=== PATIENT | female | born 1940 | race Caucasian/White ===

== ENCOUNTER → 2016-12-21 | Outpatient (REF) | payer MEDICARE, OTHER ==
[2016-12-21 16:23] LABS: MEAN CORPUSCULAR HEMOGLOBIN 30.9 pg (27.0-33.0); MEAN CORPUSCULAR HGB CONC 33.4 g/dl (32.0-36.5); MEAN CORPUSCULAR VOLUME 92.6 fl (80.0-96.0); RED CELL DISTRIBUTION WIDTH 13.4 % (11.5-14.5); WHITE BLOOD COUNT 6.1 K/mm3 (4.0-10.0)
[2016-12-21 16:32] LABS: ALBUMIN 3.6 GM/DL (3.2-5.2); ALBUMIN/GLOBULIN RATIO 0.97 (1.00-1.93); ALKALINE PHOSPHATASE 63 U/L (45-117); ALT/SGPT 14 U/L (12-78); ANION GAP 7 MEQ/L (8-16); AST/SGOT 16 U/L (15-37); BILIRUBIN,TOTAL 0.5 MG/DL (0.2-1.0); BLOOD UREA NITROGEN 13 MG/DL (7-18); CALCIUM LEVEL 8.4 MG/DL (8.8-10.2); CARBON DIOXIDE LEVEL 30 MEQ/L (21-32); CHLORIDE LEVEL 104 MEQ/L (98-107); CHOLESTEROL LEVEL 207 MG/DL (<200); CREATININE FOR GFR 0.77 MG/DL (0.55-1.02); FREE T4 1.32 NG/DL (0.76-1.46); GLOMERULAR FILTRATION RATE > 60.0 (>39); GLUCOSE, FASTING 89 MG/DL (83-110); POTASSIUM SERUM 3.8 MEQ/L (3.5-5.1); SODIUM LEVEL 141 MEQ/L (136-145); TOTAL PROTEIN 7.3 GM/DL (6.4-8.2); TRIGLYCERIDES LEVEL 283 MG/DL (<150)
== END ==
LOC: M SFHCSACK 09:27
PROVIDERS: ATTEND Family Medicine
DX: H53.9 Unspecified visual disturbance (principal); I11.9 Hypertensive heart disease without heart failure; E03.9 Hypothyroidism, unspecified; E78.2 Mixed hyperlipidemia

== ENCOUNTER 2017-02-28 07:05 | Inpatient (IN) | payer MEDICARE, OTHER ==
[~2017-02-28] VITALS: Ht 160 cm; Wt 113.0 kg
[2017-02-28] MEDS ORDERED: LEVO112T2 PO (07:22)
[2017-02-28] MEDS ORDERED: HYDR25TAB PO (07:22)
[2017-02-28] MEDS ORDERED: COZA100T2 PO (07:22)
[2017-02-28] MEDS ORDERED: REQU2TAB3 PO (07:28)
[2017-02-28] MEDS ORDERED: OSTETAB PO (07:28)
[2017-02-28] MEDS ORDERED: VITA1TAB9 PO (07:28)
[2017-02-28] MEDS ORDERED: VITA500T3 PO (07:28)
[2017-02-28] MEDS ORDERED: SINE25TA5 PO (07:28)
[2017-02-28] MEDS ORDERED: CRAN400T3 PO (07:29)
[2017-02-28] MEDS ORDERED: PRIL20CA9 PO (07:30)
[2017-02-28] MEDS ORDERED: FISH5CAP PO (07:30)
[2017-02-28] MEDS: METOPROLOL 5 MG/5 ML VIAL IV SCH ×3 (08:00→08:52)
[2017-02-28 08:08] LABS: BASO % 0.6 % (0.0-1.0); EOS # 0.2 K/mm3 (0.0-0.50); EOS % 3.2 % (0.0-3.0); LARGE UNSTAINED CELL # 0.1 K/mm3 (0.0-0.4); LARGE UNSTAINED CELL % 1.5 % (0.0-4.0); LYMPH # 1.9 K/mm3 (1.5-4.5); LYMPH % 30.4 % (24.0-44.0); MEAN CORPUSCULAR HEMOGLOBIN 30.6 pg (27.0-33.0); MEAN CORPUSCULAR HGB CONC 33.6 g/dl (32.0-36.5); MONO # 0.3 K/mm3 (0.0-0.8); MONO % 5.3 % (0.0-5.0); NEUTROPHILS # 3.4 K/mm3 (1.8-7.7); PLATELET COUNT, AUTOMATED 301 k/mm3 (150-450); RED CELL DISTRIBUTION WIDTH 13.2 % (11.5-14.5); WHITE BLOOD COUNT 5.8 K/mm3 (4.0-10.0)
--- NOTE | 2017-02-28 08:17 | REP ---
Chest one-view HISTORY: Chest pain Comparison: 10/27/2005 The lungs are clear. The heart is normal in size. The pulmonary vasculature is normal in appearance. Impression: No acute disease. Signed by Bala Dickinson MD 02/28/2017 08:08 A
[2017-02-28 08:21] LABS: INR 0.96
[2017-02-28] MEDS ORDERED: METOPROLOL TART 25 MG TABLET PO ONE (08:45)
[2017-02-28] MEDS ORDERED: LOSARTAN 50 MG TAB PO SCH (09:00)
[2017-02-28 09:09] LABS: MAGNESIUM LEVEL 2.1 MG/DL (1.8-2.4); PHOSPHORUS LEVEL 3.1 MG/DL (2.5-4.9)
[2017-02-28] MEDS ORDERED: CRAN500C2 PO (09:11)
[2017-02-28] MEDS ORDERED: VITA100066 PO (09:11)
[2017-02-28] MEDS ORDERED: SYST1SOL OU (09:11)
[2017-02-28] MEDS ORDERED: B-1210009 PO (09:11)
[2017-02-28] MEDS ORDERED: ROPI2TAB24 PO (09:11)
[2017-02-28] MEDS ORDERED: CARB1TAB PO (09:11)
[2017-02-28] MEDS ORDERED: OMEP40CA2 PO (09:11)
[2017-02-28] MEDS ORDERED: GABA-282 PO (09:11)
[2017-02-28 09:27] LABS: ANION GAP 8 MEQ/L (8-16); BLOOD UREA NITROGEN 14 MG/DL (7-18); CALCIUM LEVEL 9.1 MG/DL (8.8-10.2); CARBON DIOXIDE LEVEL 27 MEQ/L (21-32); CHLORIDE LEVEL 106 MEQ/L (98-107); GLOMERULAR FILTRATION RATE > 60.0 (>39); GLUCOSE, FASTING 115 MG/DL (83-110); POTASSIUM SERUM 3.8 MEQ/L (3.5-5.1); SODIUM LEVEL 141 MEQ/L (136-145)
[2017-02-28] MEDS ORDERED: AMIODARONE HCL 150 MG in APPROPRIATE DILUENT 1 EA IV STA ×2 (09:33→10:18)
[2017-02-28 09:56] LABS: FREE T4 1.17 NG/DL (0.76-1.46)
[2017-02-28] MEDS ORDERED: SINEMET**CR** 25/100 TABCR PO SCH ×2 (12:00→13:46)
[2017-02-28 13:52] VITALS: BP 129/82
[2017-02-28] MEDS: LEVOTHYROXINE 100MCG TABLET (0.1MG) PO SCH (13:52)
[2017-02-28] MEDS: CitaloPRAM (CeleXA) 10 MG TABLET PO SCH (15:23)
[2017-02-28] MEDS: GABAPENTIN 300 MG CAP PO SCH ×2 (15:23→20:32)
[2017-02-28] MEDS: SINEMET**CR** 25/100 TABCR PO SCH ×2 (15:23→18:09)
[2017-02-28] MEDS: OMEPRAZOLE 20 MG CAP PO SCH (15:24)
[2017-02-28 16:00] VITALS: BP 131/79
--- NOTE | 2017-02-28 16:41 | HPE ---
DATE OF ADMISSION: 02/28/2017 PRIMARY CARE PROVIDER: Dr. Jas Jeffery ATTENDING TODAY: Dr. Ann Marie Solorzano HISTORY: This is a 76-year-old female patient of Dr. Jeffery'lina, who presented to [facility] emergency room after she woke this morning feeling as though her heart was racing, shortness of breath, weakness, and vision changes. The vision change lasted less than 5 minutes. She states that now that she is here in the emergency room and she is feeling a bit better after having some IV medication to slow her heart rate, she states that she has felt an irregular and rapid heart rate for at least 7 days. She denies any history of this having occurred in the past or any recollection of similar symptoms in the past. The patient denies any recent alcohol intake, any significant caffeine intake. She drinks decaffeinated coffee. PAST MEDICAL HISTORY: Positive for: 1. Hypothyroidism. 2. Hyperlipidemia. 3. Intolerance to multiple statins. 4. Impaired fasting glucose with metabolic syndrome. 5. Hypertension. 6. Vitamin D deficiency. 7. History of peptic ulcer disease in 1979. 8. Bilateral hip bursitis. 9. Gastroesophageal reflux disease (GERD). 10. Parkinson's. 11. Degenerative disc disease of L4-L5. 12. Peripheral neuropathy of bilateral lower extremities. 13. Morbid obesity with BMI of 44 SURGICAL HISTORY: Includes: 1. Hysterectomy. 2. Appendectomy. 3. Two breast biopsies. 4. Resection of melanoma, basal cell on the lip by Dr. Mortensen. FAMILY HISTORY: Noncontributory. SOCIAL HISTORY: She is a former smoker. She does not drink alcohol. She lives at home with her daughter and her who also has Parkinson's. She denies any recreational drug use. She drinks decaffeinated coffee and has limited caffeine intake. ALLERGIES: ASPIRIN, which caused an ulcer in the past. NIASPAN causes severe flushing. PRASANNA INHIBITORS causes throat irritation, LOPID caused myalgias, ZOCOR caused myalgias, LISINOPRIL caused a cough, ATORVASTATIN caused myalgias, PRAVASTATIN caused myalgias. REVIEW OF SYSTEMS: The patient denies any lightheadedness, dizziness, headaches, significant changes to her hearing. She did note vision change that was brief this morning and present immediately upon awakening with a central right spot in her vision that was present both with her eyes opened and closed. She denies any difficulty swallowing, nausea, vomiting, diarrhea, melena or hematochezia. She has had no chest pain, although, as above, she has felt as though her heart is racing. She has had increased shortness of breath over the last week, which feels better now that her heart rate has slowed down. She denies any cough or hemoptysis. She has had no swelling in her legs. She feels as steady on her feet as she normally does with her history of Parkinson's disease. VITAL SIGNS: Reveal a temperature of 98.1, her pulse at 10:35 was 110, respirations are 20, blood pressure is 124/82, pulse oximetry is 94%. GENERAL: This is an elderly appearing, very pleasant female who is [facility] She appears comfortable. She is alert and oriented. HEENT: Head is normocephalic, atraumatic. Pupils are equal, round and reactive to light and accommodation. Extraocular movements are intact. Oropharynx is pink and moist. NECK: Supple without lymphadenopathy or jugular venous distention (JVD). CARDIOVASCULAR: On auscultation, her rate was about 122 beats per minute. It is irregular. She did not have an audible murmur. LUNGS: Clear to auscultation bilaterally. ABDOMEN: Obese, soft and nontender. She has positive bowel sounds. EXTREMITIES: With normal range of motion of bilateral upper and lower extremities. She has no cyanosis, clubbing. She has no edema. NEUROLOGIC: She is alert and oriented times three. INVESTIGATIONS: WBC 5.8, hemoglobin 14.1, hematocrit 42.1, platelets are 301, INR is 0.96. Sodium is 141, potassium 3.8, chloride 106, carbon dioxide 27, BUN 14, creatinine 0.8, glucose 116, calcium 9.1, phosphorous 3.1, magnesium 2.1, total CK is 83, CK-MB is 2, troponin is less than 0.02, TSH is 0.88, Free T4 is 1.17. Chest x-ray is without any acute disease. EKG showed rapid ventricular response, atrial fibrillation. ASSESSMENT AND PLAN: 1. New onset atrial fibrillation with rapid ventricular response. She has received multiple doses of IV Lopressor in the emergency room with only minimal improvement in her rate control. She subsequently received a 25 mg oral dose of Lopressor. Dr. Cornell, the emergency room physician, contacted Dr. Jane, cardiology, who recommended in consult on IV amiodarone administration for this patient to help with rate control. She will be admitted to the progressive care unit (PCU), consult cardiology for further management of her rate control. We will start her on Xarelto for anticoagulation of this new onset atrial fibrillation. 2. Hypothyroidism. Her TSH is 0.888, which is on the low side of normal, although for her age it is slightly too low. Given the new onset atrial fibrillation, we will decrease her Synthroid from 112 mcg daily to 100 mcg daily. She will need a repeat TSH and Free T4 in the office in approximately six weeks. 3. History of Parkinson's disease. She is on Sinemet as an outpatient. We will continue this during her hospitalization. 4. Neuropathy. We will continue her gabapentin. 5. Hypertension. She takes Losartan and hydrochlorothiazide as an outpatient. I am going to hold her hydrochlorothiazide at this point. We will continue the losartan 100 mg daily and monitor pressures. 6. Gastroesophageal reflux disease (GERD). We will continue her on omeprazole 40 mg daily. 7. Deep vein thrombosis (DVT) prophylaxis. She has been started on Xarelto. She also has orders for sequential compression device (SCD) and thromboembolic compression stockings (TEDS). 8. Morbid Obesity - BMI 44.1 DISPOSITION: The patient is admitted to the progressive care unit (PCU). I anticipate she will be in the hospital at least two overnights and therefore she is admitted as an inpatient. She wishes to be FULL CODE. She does have a daughter, Darlin, whom she identifies as her healthcare proxy and who has agreed to bring in documentation supporting such. GENEVIEVED
[2017-02-28] MEDS ORDERED: RIVAROXABAN 20 MG TAB (XARELTO) PO SCH (18:00)
--- NOTE | 2017-02-28 18:26 | ECGEPIP ---
Stationary ECG Study [facility] - ED Test Date: 2017-02-28 Pat Name: VIRGINIE BENSON Department: Room: - Gender: F Parts Cleaner: matteo : 1940 Requested By: KAHLIL Vail Order Number: [id number] Reading MD: Nataliya Amaya Measurements Intervals [place] Rate: 150 P: [place]: 0 QRS: -12 QRSD: 85 T: -13 QT: 268 QTc: 424 Interpretive Statements ATRIAL FIBRILLATION WITH RAPID VENTRICULAR RESPONSE MODERATE ST DEPRESSION NO PRIOR FOR COMPARISON Electronically Signed On 02-28-2017 18:26:32 EDT by Nataliya Amaya
[2017-02-28 20:00] VITALS: BP 127/60
[2017-02-28] MEDS ORDERED: METOPROLOL TART 25 MG TABLET PO SCH (21:00)
[2017-03-01] VITALS: BP 103/52
[2017-03-01 04:15] VITALS: BP 102/52
[2017-03-01 05:19] LABS: MEAN CORPUSCULAR HGB CONC 33.8 g/dl (32.0-36.5); MEAN CORPUSCULAR VOLUME 91.6 fl (80.0-96.0); RED CELL DISTRIBUTION WIDTH 13.4 % (11.5-14.5); WHITE BLOOD COUNT 5.3 K/mm3 (4.0-10.0)
[2017-03-01] MEDS: LEVOTHYROXINE 100MCG TABLET (0.1MG) PO SCH (05:25)
[2017-03-01 05:33] LABS: ALBUMIN 2.8 GM/DL (3.2-5.2); ALBUMIN/GLOBULIN RATIO 0.76 (1.00-1.93); ALKALINE PHOSPHATASE 52 U/L (45-117); ALT/SGPT 8 U/L (12-78); ANION GAP 6 MEQ/L (8-16); AST/SGOT 14 U/L (15-37); BILIRUBIN,TOTAL 0.4 MG/DL (0.2-1.0); BLOOD UREA NITROGEN 17 MG/DL (7-18); CALCIUM LEVEL 8.5 MG/DL (8.8-10.2); CARBON DIOXIDE LEVEL 27 MEQ/L (21-32); CHLORIDE LEVEL 106 MEQ/L (98-107); CREATININE FOR GFR 0.83 MG/DL (0.55-1.02); GLOMERULAR FILTRATION RATE > 60.0 (>39); GLUCOSE, FASTING 102 MG/DL (83-110); MAGNESIUM LEVEL 2.2 MG/DL (1.8-2.4); POTASSIUM SERUM 3.6 MEQ/L (3.5-5.1); SODIUM LEVEL 139 MEQ/L (136-145); TOTAL PROTEIN 6.5 GM/DL (6.4-8.2)
[2017-03-01] MEDS ORDERED: POTASSIUM CHLORIDE 10 MEQ SR TABLET PO ONE (07:45)
[2017-03-01] MEDS ORDERED: CARD120C3 PO (07:51)
[2017-03-01] MEDS ORDERED: CELE10TA PO (07:51)
[2017-03-01] MEDS ORDERED: LEVO100T5 PO (07:51)
[2017-03-01] MEDS ORDERED: XARE20TA PO (07:51)
[2017-03-01 08:00] VITALS: BP 129/79
[2017-03-01 08:18] VITALS: BP 129/79
[2017-03-01] MEDS: CitaloPRAM (CeleXA) 10 MG TABLET PO SCH (08:19)
[2017-03-01] MEDS: SINEMET**CR** 25/100 TABCR PO SCH ×3 (08:20→14:22)
[2017-03-01] MEDS: GABAPENTIN 300 MG CAP PO SCH (08:20)
[2017-03-01] MEDS: OMEPRAZOLE 20 MG CAP PO SCH (08:20)
[2017-03-01] MEDS ORDERED: hydroCHLOROthiazide 25 MG TAB PO SCH (09:00)
[2017-03-01 12:14] VITALS: BP 130/58
--- NOTE | 2017-03-02 10:58 | DSES ---
DATE OF ADMISSION: 02/28/2017 DATE OF DISCHARGE: 03/01/2017 BRIEF HISTORY AND PHYSICAL: The patient is a 76-year-old patient of Dr. Jeffery who presented with feeling as though her heart was racing. She was short of breath and weak with some vision changes that lasted about 5 minutes. PAST MEDICAL HISTORY: Is significant for hypothyroidism, hyperlipidemia, intolerance to multiple statins, impaired fasting glucose, metabolic syndrome, hypertension, vitamin D deficiency, peptic ulcer disease, bilateral hip bursitis, gastroesophageal reflux disease, Parkinson disease, degenerative disc disease, peripheral neuropathy of bilateral lower extremities, morbid obesity. PERTINENT LABORATORIES ON ADMISSION: White count 5.8, hemoglobin 14, platelets 301,000. INR 0.96. Sodium 141, potassium 3.8, BUN 14, creatinine 0.8, glucose 116, CIPs and troponins were negative. TSH 0.8. A chest x-ray without acute disease. Electrocardiogram (EKG) showed rapid atrial fibrillation. HOSPITAL COURSE: The patient was admitted for new-onset atrial fibrillation with rapid ventricular response. She was given multiple doses of Lopressor in the emergency room with minimal improvement in her heart rate control. She subsequently was given oral Lopressor and Dr. Cornell, the emergency room physician, contacted Dr. Jane, who recommended intravenous (IV) amiodarone. However, Dr. Jane declined seeing the patient apparently officially in consultation. She was given IV amiodarone times two and has been switched from Lopressor to Cardizem. Heart rate is well controlled. Blood pressure was a little bit soft, and so her losartan was discontinued, and she has been placed on a Xarelto. The Xarelto is being sent to the pharmacy to see if this is covered, and assuming her blood pressure and heart rate remain controlled with the Cardizem today, she will be discharged home later today and will followup with Dr. Jeffery in the office. Held off on any referrals to cardiology. Will wait to see whether she requires this as an outpatient and defer to Dr. Jeffery which audiovisual production specialist he would like to refer her to. Hypothyroidism. Her thyroid-stimulating hormone (TSH) was a little bit on the low end. Her Synthroid was decreased from 112 to 100 mcg daily. She will need a repeat TSH to be performed in 6 weeks. Borderline hypokalemia. Her potassium was 3.6 on the date of discharge. Her angiotensin receptor tamie (ARB) has been held due to borderline hypotension. This could be restarted as an outpatient if her blood pressure tolerates, but in the meantime, will need to watch her potassium. She was given a single dose of potassium prior to discharge, and she will need her electrolytes checked in the office. History Parkinson disease. She remains stable on her Sinemet. Gastroesophageal reflux disease. She is on a proton pump inhibitor (PPI). DISPOSITION: She is stable for discharge home, assuming that her Xarelto is covered by insurance and her blood pressure and heart rate remained stable with the Cardizem dose today. Medications: Citalopram 10 mg daily, diltiazem 240 mg daily, levothyroxine 100 mcg daily (his is a decreased from 112 mcg), Xarelto 20 mg daily, carbidopa/levodopa one tablet four times a day, vitamin D 1000 international units daily, cranberry 500 mg daily, fish oil one tablet twice a day, gabapentin 300 mg twice a day, hydrochlorothiazide 25 mg daily, omeprazole 40 mg daily, Osteo Bi-Flex daily, MiraLAX daily, Requip 2 mg at bedtime. Losartan is on hold. DISCHARGE DIAGNOSES: 1. New-onset atrial fibrillation with rapid ventricular response. 2. Hypothyroidism. 3. Parkinson disease. 4. Borderline hypokalemia. 5. Gastroesophageal reflux disease with a history of peptic ulcer disease in the past.
--- NOTE | 2017-03-03 22:29 | ECHO ---
DATE OF PROCEDURE: 03/03/2017 REFERRING PROVIDER: Dr. Deloris Chicas PATIENT LOCATION: Room 3123 REASON FOR THE ECHOCARDIOGRAM: Abnormal EKG. 2D MEASUREMENTS: IVS: 1.1 cm LV: 4.3 cm LVPW: 1.1 cm LA: 3.3 cm Aorta: 2.7 cm IVC: 2.38 cm DOPPLER MEASUREMENTS: Peak velocity across the aortic valve: 1.5 m/s Peak velocity across the LVOT: 1.1 m/s Mitral E: 0.62 Mitral A: 0.82 with a ratio of 0.8 Maximum tricuspid valve velocity: 2.4 m/s 2D COMMENTS: 1. Normal left ventricular size, wall thickness, and normal global left ventricular systolic function. The estimated left ventricular systolic ejection fraction is 60% to 65%. 2. Normal left atrium. The right atrium appeared to mildly enlarged in limited views. The right ventricle also appeared to be mildly enlarged but the right ventricular free wall was moving well. 3. The atrial septum appeared to be normal without evidence of defect or shunt. 4. Normal aortic root. 5. No pericardial effusion seen. 6. Mildly calcified aortic valve with normal leaflet excursion. Mildly calcified mitral annulus with normal anterior mitral valve leaflet motion. Normal tricuspid valve. The pulmonic valve and proximal pulmonary artery branches were not well visualized. 7. The inferior vena cava was mildly enlarged at 2.3 cm, central venous pressure may be mildly elevated. DOPPLER: It detects trace mitral regurgitation and mild tricuspid regurgitation. The calculated pulmonary artery systolic pressure varies between 30 to 40 mmHg. Abnormal relaxation pattern was noted across the mitral valve leaflets as well as the mitral valve annulus consistent with grade 1 left ventricular diastolic dysfunction. IMPRESSION: 1. Normal global left ventricular systolic function. There are some features of left ventricular diastolic dysfunction, grade 1. 2. Aortic valve sclerosis without stenosis or aortic regurgitation. 3. Mitral annulus calcification with trace mitral regurgitation. 4. Mild tricuspid regurgitation with mild pulmonary hypertension. The right heart chambers appear to be mildly enlarged in limited views but no intracardiac shunt detected. 5. The inferior vena cava was mildly enlarged, central venous pressure mildly elevated. MTDD
== END 2017-03-01 14:25 | disposition home or self-care (01) | DRG 309 ==
LOC: EDBD 07:05 → M ED 07:05 → M ED INP 11:00 → M PCU 13:17
PROVIDERS: ADMIT Family Medicine; ATTEND Family Medicine
DX: I48.91 Unspecified atrial fibrillation (principal); Z68.41 Body mass index [BMI] 40.0-44.9, adult; E03.9 Hypothyroidism, unspecified; E78.5 Hyperlipidemia, unspecified; E88.81 Metabolic syndrome and other insulin resistance; I10 Essential (primary) hypertension; E55.9 Vitamin D deficiency, unspecified; K21.9 Gastro-esophageal reflux disease without esophagitis; G20 Parkinson's disease; E66.01 Morbid (severe) obesity due to excess calories; M70.72 Other bursitis of hip, left hip; E87.6 Hypokalemia; M70.71 Other bursitis of hip, right hip; M51.36 Other intervertebral disc degeneration, lumbar region; G57.93 Unspecified mononeuropathy of bilateral lower limbs; Z85.828 Personal history of other malignant neoplasm of skin; Z90.710 Acquired absence of both cervix and uterus; Z87.891 Personal history of nicotine dependence; Z88.6 Allergy status to analgesic agent; Z88.8 Allergy status to other drugs, medicaments and biological substances

== ENCOUNTER 2017-03-15 20:15 | Emergency (ER) | payer MEDICARE, OTHER ==
[~2017-03-15] VITALS: Ht 160 cm; Wt 117.9 kg
[~2017-03-15 20:15] MED LIST: B-1210009 PO; CARB1TAB PO; CARD120C3 PO; CELE10TA PO; COZA100T2 PO; CRAN400T3 PO; CRAN500C2 PO; FISH5CAP PO; GABA-282 PO; HYDR25TAB PO; LEVO100T5 PO; LEVO112T2 PO; OMEP40CA2 PO; OSTETAB PO; PRIL20CA9 PO; REQU2TAB3 PO; ROPI2TAB24 PO; SINE25TA5 PO; SYST1SOL OU; VITA100066 PO; VITA1TAB9 PO; VITA500T3 PO; XARE20TA PO
[2017-03-15 21:25] LABS: INR 1.41
[2017-03-15 21:27] LABS: BASO # 0.1 K/mm3 (0.0-0.2); EOS # 0.2 K/mm3 (0.0-0.50); EOS % 2.5 % (0.0-3.0); LARGE UNSTAINED CELL # 0.1 K/mm3 (0.0-0.4); LARGE UNSTAINED CELL % 1.3 % (0.0-4.0); LYMPH # 2.2 K/mm3 (1.5-4.5); LYMPH % 26.1 % (24.0-44.0); MEAN CORPUSCULAR HEMOGLOBIN 31.7 pg (27.0-33.0); MEAN CORPUSCULAR HGB CONC 35.4 g/dl (32.0-36.5); MEAN CORPUSCULAR VOLUME 89.5 fl (80.0-96.0); MONO # 0.4 K/mm3 (0.0-0.8); MONO % 4.2 % (0.0-5.0); NEUTROPHILS # 5.5 K/mm3 (1.8-7.7); NEUTROPHILS % 64.9 % (36.0-66.0); PLATELET COUNT, AUTOMATED 345 k/mm3 (150-450); WHITE BLOOD COUNT 8.5 K/mm3 (4.0-10.0)
[2017-03-15 21:41] LABS: ABG BASE EXCESS 0.9 (-2.0-2.0); ABG HCO3 25.6 MEQ/L (22.0-26.0); ABG PARTIAL PRESSURE CO2 41.2 mmHg (35.0-45.0); ABG PARTIAL PRESSURE O2 83.1 mmHg (75.0-100.0); ABG STANDARD HCO3 25.3 MEQ/L (22.0-26.0); ABG TOTAL CO2 26.9 MEQ/L (23.0-31.0); ABG pH (ARTERIAL) 7.412 UNITS (7.350-7.450)
[2017-03-15 21:43] LABS: BLOOD UREA NITROGEN 13 MG/DL (7-18); CALCIUM LEVEL 8.8 MG/DL (8.8-10.2); CARBON DIOXIDE LEVEL 28 MEQ/L (21-32); CHLORIDE LEVEL 99 MEQ/L (98-107); CREATININE FOR GFR 0.89 MG/DL (0.55-1.02); GLUCOSE, FASTING 138 MG/DL (83-110); POTASSIUM SERUM 3.4 MEQ/L (3.5-5.1); SODIUM LEVEL 135 MEQ/L (136-145)
[2017-03-15 21:47] LABS: ANION GAP 8 MEQ/L (8-16)
[2017-03-15] MEDS ORDERED: ISOVUE-370 76% 100ML VIAL (Q9967) As Ordered ONE (22:18)
--- NOTE | 2017-03-15 22:50 | REPUSA ---
CT angiogram of the chest Clinical statement: dyspnea. Technique: Multiple axial CT images were obtained from the thoracic inlet through the upper abdomen a fter a bolus administration of nonionic intravenous contrast. Coronal and sagittal reconstructions we re also obtained. No comparison is available. Findings: The pulmonary arteries are well-opacified with contrast, with no intraluminal filling defec ts to suggest embolism. The thoracic aorta is unremarkable. Thyroid gland is within normal limits. Th ere is no thoracic lymphadenopathy. There are no pericardial or pleural effusions. The lungs are jerzy r. Limited imaging of the upper abdomen is unremarkable. There are no suspicious osseous lesions. Impression: Unremarkable CT examination of the chest. No evidence of pulmonary embolism.
[2017-03-16 02:23] VITALS: BP 145/69
--- NOTE | 2017-03-16 11:24 | ECGEPIP ---
Stationary ECG Study [facility] - ED Test Date: 2017-03-15 Pat Name: VIRGINIE BENSON Department: Room: - Gender: F Invoice Clerk: : 1940 Requested By: JOHNNY KENT Order Number: [id number] Reading MD: Nataliya Amaya Measurements Intervals [place] Rate: 59 P: 34 [place]: 180 QRS: 69 QRSD: 97 T: 44 QT: 446 QTc: 444 Interpretive Statements SINUS BRADYCARDIA PRIOR ATRIAL FIBRILLATION 02/28/17 Electronically Signed On 03-16-2017 11:23:45 EDT by Nataliya Amaya
--- NOTE | 2017-03-16 11:26 | ECGEPIP ---
Stationary ECG Study [facility] - ED Test Date: 2017-03-16 Pat Name: VIRGINIE BENSON Department: Room: - Gender: F Public Service Representative: : 1940 Requested By: JOHNNY KENT Order Number: [id number] Reading MD: Nataliya Amaya Measurements Intervals [place] Rate: 57 P: 25 [place]: 167 QRS: -8 QRSD: 94 T: 12 QT: 436 QTc: 426 Interpretive Statements SINUS BRADYCARDIA NSTTW ABNORMALITY Electronically Signed On 03-16-2017 11:25:48 EDT by Nataliya Amaya
== END 2017-03-16 02:25 | disposition home or self-care (01) ==
LOC: EDBD 20:15 → M ED 20:15
DX: R07.89 Other chest pain (principal); F41.9 Anxiety disorder, unspecified; I10 Essential (primary) hypertension; E03.9 Hypothyroidism, unspecified; K21.9 Gastro-esophageal reflux disease without esophagitis; G20 Parkinson's disease; I48.91 Unspecified atrial fibrillation; Z88.6 Allergy status to analgesic agent; Z88.8 Allergy status to other drugs, medicaments and biological substances; Z79.899 Other long term (current) drug therapy
CPT/HCPCS: 36415; 36600; 71275; 80048; 82550; 82553; 82803; 84484; 85025; 85610; 85730; 93005; 99284; Q9967

== ENCOUNTER → 2017-04-19 | Outpatient (REF) | payer MEDICARE, OTHER ==
[2017-04-19 16:11] LABS: ANION GAP 8 MEQ/L (8-16); BLOOD UREA NITROGEN 13 MG/DL (7-18); CARBON DIOXIDE LEVEL 31 MEQ/L (21-32); CHLORIDE LEVEL 104 MEQ/L (98-107); CREATININE FOR GFR 0.77 MG/DL (0.55-1.02); FREE T4 1.28 NG/DL (0.76-1.46); GLOMERULAR FILTRATION RATE > 60.0 (>39); GLUCOSE, FASTING 92 MG/DL (83-110); POTASSIUM SERUM 3.8 MEQ/L (3.5-5.1); SODIUM LEVEL 143 MEQ/L (136-145)
== END ==
LOC: M SFHCSACK 09:18
PROVIDERS: ATTEND Family Medicine
DX: E03.9 Hypothyroidism, unspecified (principal); R60.0 Localized edema; I48.0 Paroxysmal atrial fibrillation

== ENCOUNTER → 2017-08-22 | Outpatient (CLI) | payer MEDICARE, OTHER | LOC: M WHC 10:20 | DX: Z12.31 Encounter for screening mammogram for malignant neoplasm of breast (principal); Z80.0 Family history of malignant neoplasm of digestive organs; Z92.0 Personal history of contraception | CPT/HCPCS: 77067 ==

== ENCOUNTER → 2017-10-16 | Outpatient (REF) | payer MEDICARE, OTHER ==
[2017-10-16 14:11] LABS: HEMATOCRIT 40.7 % (36.0-47.0); HEMOGLOBIN 13.5 g/dl (12.0-16.0); MEAN CORPUSCULAR HEMOGLOBIN 29.9 pg (27.0-33.0); MEAN CORPUSCULAR HGB CONC 33.2 g/dl (32.0-36.5); RED BLOOD COUNT 4.52 10^6/uL (4.00-5.40); RED CELL DISTRIBUTION WIDTH 13.1 % (11.5-14.5); WHITE BLOOD COUNT 6.3 10^3/uL (4.0-10.0)
[2017-10-16 14:12] LABS: PLATELET COUNT, AUTOMATED 280 10^3/uL (150-450)
[2017-10-16 14:31] LABS: ESTIMATED AVERAGE GLUCOSE 117 MG/DL (60-110); HEMOGLOBIN A1c 5.7 %
[2017-10-16 14:35] LABS: ALBUMIN 3.6 GM/DL (3.2-5.2); ALBUMIN/GLOBULIN RATIO 0.95 (1.00-1.93); ALKALINE PHOSPHATASE 77 U/L (45-117); ALT/SGPT 9 U/L (12-78); ANION GAP 7 MEQ/L (8-16); AST/SGOT 13 U/L (7-37); BILIRUBIN,TOTAL 0.4 MG/DL (0.2-1.0); BLOOD UREA NITROGEN 14 MG/DL (7-18); CALCIUM LEVEL 8.9 MG/DL (8.8-10.2); CARBON DIOXIDE LEVEL 31 MEQ/L (21-32); CHLORIDE LEVEL 103 MEQ/L (98-107); CHOLESTEROL LEVEL 209 MG/DL (<200); CREATININE FOR GFR 0.77 MG/DL (0.55-1.30); FREE T4 1.18 NG/DL (0.76-1.46); GLOMERULAR FILTRATION RATE > 60.0 (>39); GLUCOSE, FASTING 95 MG/DL (70-100); HDL CHOLESTEROL 38 MG/DL (>40); LDL CHOLESTEROL 118.4 MG/DL (<100); NON-HDL-C 171 MG/DL; SODIUM LEVEL 141 MEQ/L (136-145); TOTAL PROTEIN 7.4 GM/DL (6.4-8.2); TRIGLYCERIDES LEVEL 263 MG/DL (<150)
== END ==
LOC: M SFHCSACK 09:34
DX: G60.9 Hereditary and idiopathic neuropathy, unspecified (principal); E03.9 Hypothyroidism, unspecified; R73.9 Hyperglycemia, unspecified; E78.2 Mixed hyperlipidemia
CPT/HCPCS: 84443

== ENCOUNTER → 2018-03-13 | Outpatient (REF) | payer MEDICARE, OTHER | LOC: M SFHCADAM 13:39 | DX: N39.0 Urinary tract infection, site not specified (principal) | CPT/HCPCS: 87186 ==

== ENCOUNTER → 2018-05-10 | Outpatient (REF) | payer MEDICARE, OTHER ==
[2018-05-10 13:10] LABS: HEMATOCRIT 41.5 % (36.0-47.0); MEAN CORPUSCULAR HEMOGLOBIN 30.6 pg (27.0-33.0); MEAN CORPUSCULAR HGB CONC 33.7 g/dl (32.0-36.5); MEAN CORPUSCULAR VOLUME 90.8 fl (80.0-96.0); PLATELET COUNT, AUTOMATED 323 10^3/uL (150-450); RED BLOOD COUNT 4.57 10^6/uL (4.00-5.40); RED CELL DISTRIBUTION WIDTH 13.2 % (11.5-14.5); WHITE BLOOD COUNT 7.4 10^3/uL (4.0-10.0)
[2018-05-10 15:17] LABS: ALBUMIN 3.6 GM/DL (3.2-5.2); ALKALINE PHOSPHATASE 70 U/L (45-117); ALT/SGPT 19 U/L (12-78); ANION GAP 11 MEQ/L (8-16); AST/SGOT 10 U/L (7-37); BILIRUBIN,TOTAL 0.4 MG/DL (0.2-1.0); BLOOD UREA NITROGEN 14 MG/DL (7-18); CALCIUM LEVEL 9.3 MG/DL (8.8-10.2); CARBON DIOXIDE LEVEL 28 MEQ/L (21-32); CHLORIDE LEVEL 101 MEQ/L (98-107); CHOLESTEROL LEVEL 207 MG/DL (<200); CHOLESTEROL RISK RATIO 4.312 (<5); CREATININE FOR GFR 0.79 MG/DL (0.55-1.30); GLOMERULAR FILTRATION RATE > 60.0 (>39); GLUCOSE, FASTING 95 MG/DL (70-100); HDL CHOLESTEROL 48 MG/DL (>40); LDL CHOLESTEROL 126 MG/DL (<100); NON-HDL-C 159 MG/DL; POTASSIUM SERUM 3.7 MEQ/L (3.5-5.1); SODIUM LEVEL 140 MEQ/L (136-145); TOTAL 25(OH) VITAMIN D 29.1 NG/ML (30.0-100.0); TOTAL PROTEIN 7.6 GM/DL (6.4-8.2); TRIGLYCERIDES LEVEL 165 MG/DL (<150)
== END ==
LOC: M SFHCADAM 08:07
DX: I48.0 Paroxysmal atrial fibrillation (principal); I11.9 Hypertensive heart disease without heart failure; E03.9 Hypothyroidism, unspecified; E78.2 Mixed hyperlipidemia; E55.9 Vitamin D deficiency, unspecified
CPT/HCPCS: 84443

== ENCOUNTER → 2018-09-19 | Outpatient (CLI) | payer MEDICARE, OTHER ==
[~2018-09-19] MED LIST changes: -GABA-282 PO; +GABA-843 PO
--- NOTE | 2018-09-19 09:22 | REPMRS ---
Patient History The patient states she has not had a clinical breast exam in over a year. Patient has history of melanoma at age 63. Family history of colorectal cancer at age 73 in mother, colorectal cancer at age 53 in brother, colorectal cancer at age 75 in maternal grandmother, colorectal cancer at age 75 in maternal uncle, breast cancer at age 50 or over in maternal cousin, breast cancer at age 50 or over in niece, breast cancer at age 50 or over in niece. Benign excisional biopsy of both breasts, 1979. Took hormonal contraceptives for 1 year 6 months. Took estrogen for 8 years. 3D TOMOSYNTHESIS WAS PERFORMED. Digital Woman Screen Mammo: September 19, 2018 - Exam #: [id number] Bilateral CC and MLO view(s) were taken. Technologist: Amaya Gary, Technologist Prior study comparison: August 22, 2017, digital woman screen mammo performed at [facility]. July 27, 2016, digital woman screen mammo performed at [facility]. FINDINGS: There are scattered fibroglandular densities. There has been no change in the appearance of the mammogram from the prior studies. There is a mild amount of residual fibroglandular tissue which is fairly symmetric. There is no interval development of dominant mass, architectural distortion, or clustered microcalcification suggestive of malignancy. Assessment: BI-RADS/ACR category 1 mammogram. Negative Mammogram. Recommendation Routine screening mammogram in 1 year (for women over age 40). This mammogram was interpreted with the aid of an FDA-approved computer-aided dectection system. Electronically Signed By: Willie Myers MD 09/19/18 0921
== END ==
LOC: M WHC 07:37
PROVIDERS: ATTEND Family Medicine
DX: Z12.31 Encounter for screening mammogram for malignant neoplasm of breast (principal)

== ENCOUNTER → 2018-12-19 | Outpatient (REF) | payer MEDICARE, OTHER ==
[2018-12-22 00:06] LABS: STRIATIONAL ANTIBODIES Negative (Neg:<1:40)
== END ==
LOC: M LABDRWAD 12:04
PROVIDERS: ATTEND Psychiatry & Neurology Neurology
DX: H53.2 Diplopia (principal); R47.81 Slurred speech; F43.21 Adjustment disorder with depressed mood; I11.9 Hypertensive heart disease without heart failure; E03.9 Hypothyroidism, unspecified; E78.2 Mixed hyperlipidemia; E55.9 Vitamin D deficiency, unspecified

== ENCOUNTER → 2018-12-19 | Outpatient (REF) | payer MEDICARE, OTHER ==
[2018-12-19 13:50] LABS: HEMATOCRIT 43.1 % (36.0-47.0); HEMOGLOBIN 13.9 g/dl (12.0-15.5); MEAN CORPUSCULAR HEMOGLOBIN 29.4 pg (27.0-33.0); MEAN CORPUSCULAR HGB CONC 32.3 g/dl (32.0-36.5); MEAN CORPUSCULAR VOLUME 91.3 fl (80.0-96.0); PLATELET COUNT, AUTOMATED 360 10^3/uL (150-450); RED BLOOD COUNT 4.72 10^6/uL (4.00-5.40); WHITE BLOOD COUNT 5.9 10^3/uL (4.0-10.0)
[2018-12-19 14:02] LABS: ALBUMIN 3.5 GM/DL (3.2-5.2); ALT/SGPT 10 U/L (12-78); BILIRUBIN,TOTAL 0.4 MG/DL (0.2-1.0); BLOOD UREA NITROGEN 10 MG/DL (7-18); CALCIUM LEVEL 8.6 MG/DL (8.8-10.2); CARBON DIOXIDE LEVEL 31 MEQ/L (21-32); CHLORIDE LEVEL 103 MEQ/L (98-107); CHOLESTEROL LEVEL 208 MG/DL (<200); CHOLESTEROL RISK RATIO 5.942 (<5); CREATININE FOR GFR 0.73 MG/DL (0.55-1.30); FREE T4 1.19 NG/DL (0.76-1.46); GLOMERULAR FILTRATION RATE > 60.0 (>39); GLUCOSE, FASTING 102 MG/DL (70-100); HDL CHOLESTEROL 35 MG/DL (>40); LDL CHOLESTEROL 120 MG/DL (<100); NON-HDL-C 173 MG/DL; POTASSIUM SERUM 3.3 MEQ/L (3.5-5.1); SODIUM LEVEL 139 MEQ/L (136-145); TOTAL PROTEIN 7.3 GM/DL (6.4-8.2); TRIGLYCERIDES LEVEL 266 MG/DL (<150)
[2018-12-19 14:24] LABS: TOTAL 25(OH) VITAMIN D 31.7 NG/ML (30.0-100.0)
== END ==
LOC: M SFHCADAM 08:00
PROVIDERS: ATTEND Family Medicine
DX: F43.21 Adjustment disorder with depressed mood (principal); I11.9 Hypertensive heart disease without heart failure; E03.9 Hypothyroidism, unspecified; E78.2 Mixed hyperlipidemia; E55.9 Vitamin D deficiency, unspecified

== ENCOUNTER → 2019-06-21 | Outpatient (REF) | payer MEDICARE, OTHER ==
[~2019-06-21] MED LIST changes: +CYAN500T8 PO; -OMEP40CA2 PO; +OMEP40CA97 PO; -VITA500T3 PO
[2019-06-21 12:52] LABS: HEMATOCRIT 41.2 % (36.0-47.0); HEMOGLOBIN 13.4 g/dl (12.0-15.5); MEAN CORPUSCULAR HEMOGLOBIN 29.9 pg (27.0-33.0); MEAN CORPUSCULAR HGB CONC 32.5 g/dl (32.0-36.5); PLATELET COUNT, AUTOMATED 312 10^3/uL (150-450); RED BLOOD COUNT 4.48 10^6/uL (4.00-5.40); WHITE BLOOD COUNT 5.8 10^3/uL (4.0-10.0)
[2019-06-21 13:10] LABS: ALBUMIN 3.5 GM/DL (3.2-5.2); ALT/SGPT 9 U/L (12-78); BILIRUBIN,TOTAL 0.6 MG/DL (0.2-1.0); BLOOD UREA NITROGEN 12 MG/DL (7-18); CALCIUM LEVEL 8.8 MG/DL (8.8-10.2); CARBON DIOXIDE LEVEL 29 MEQ/L (21-32); CHLORIDE LEVEL 102 MEQ/L (98-107); CREATININE FOR GFR 0.81 MG/DL (0.55-1.30); FREE T4 1.06 NG/DL (0.76-1.46); GLOMERULAR FILTRATION RATE > 60.0 (>39); GLUCOSE, FASTING 87 MG/DL (70-100); MAGNESIUM LEVEL 2.1 MG/DL (1.8-2.4); POTASSIUM SERUM 4.1 MEQ/L (3.5-5.1); SODIUM LEVEL 139 MEQ/L (136-145); TOTAL PROTEIN 7.4 GM/DL (6.4-8.2)
== END ==
LOC: M SFHCADAM 07:55
PROVIDERS: ATTEND Family Medicine
DX: I11.9 Hypertensive heart disease without heart failure (principal); I48.0 Paroxysmal atrial fibrillation; F43.21 Adjustment disorder with depressed mood; E03.9 Hypothyroidism, unspecified

== ENCOUNTER → 2019-09-17 | Outpatient (CLI) | payer MEDICARE, OTHER ==
--- NOTE | 2019-09-17 12:43 | REP ---
Right lower extremity deep vein duplex ultrasound: The deep veins demonstrate normal compression, normal Doppler color flow and normal Doppler waveforms with respiration and augmentation from the popliteal vein to the common femoral vein. Impression: There is no deep vein thrombus. Electronically Signed by Willie Hall MD 09/17/2019 12:35 P
== END ==
LOC: M RAD 11:53
PROVIDERS: ATTEND Orthopaedic Surgery
DX: M79.604 Pain in right leg (principal)

== ENCOUNTER → 2019-09-19 | Outpatient (CLI) | payer MEDICARE, OTHER ==
--- NOTE | 2019-09-19 10:14 | REP ---
MRI RIGHT HIP: TECHNIQUE: Coronal T1, STIR through the pelvis, T2 fat sat, right hip all three planes, axial oblique proton density fat sat right hip. Visualized osseous structures demonstrate normal bone marrow signal with no bone marrow edema or occult fracture. There is no evidence of avascular necrosis. There are tears of the superior, anterior and posterior labrum. No paralabral cyst is seen. There is a partial tear of the distal iliopsoas tendon near the insertion onto the lesser trochanter of the proximal right femur. There is mild fluid and edema along the greater trochanter compatible with mild greater trochanteric tendinobursitis. No other abnormal soft tissue signal is seen. Visualized intrapelvic structures are unremarkable. IMPRESSION: There are tears of the anterior, posterior, and superior labrum. There is a fairly high grade partial tear of the distal iliopsoas tendon. There is mild greater trochanteric tendinobursitis. Electronically Signed by Willie Myers MD 09/20/2019 11:20 A
== END ==
LOC: M RAD 06:33
PROVIDERS: ATTEND Orthopaedic Surgery
DX: S73.191A Other sprain of right hip, initial encounter (principal); M70.61 Trochanteric bursitis, right hip; Y92.9 Unspecified place or not applicable; Y93.9 Activity, unspecified; Y99.9 Unspecified external cause status

== ENCOUNTER 2019-11-26 17:09 | Emergency (ER) | payer MEDICARE, OTHER ==
[~2019-11-26] VITALS: Ht 157.5 cm; Wt 100.0 kg
[~2019-11-26 17:09] MED LIST changes: -ACET-683 PO; -ANEC4CRE3 TOP; -CBD OIL; -CBD OIL TOP; -METH1TAB40 PO
[2019-11-26] MEDS ORDERED: ACET-683 PO (17:39)
[2019-11-26] MEDS ORDERED: LIDOCAINE 4% CREAM 5GM (LMX4) TOP ONE (17:45)
[2019-11-26] MEDS ORDERED: CBD OIL (17:52)
[2019-11-26] MEDS ORDERED: CBD OIL TOP (18:06)
--- NOTE | 2019-11-26 18:11 | REPVR ---
PROCEDURE INFORMATION: Exam: CT Head Without Contrast Exam date and time: 11/26/2019 5:54 PM Age: 79 years old Clinical indication: Injury or trauma; Fall; Initial encounter; Blunt trauma (contusions or hematomas); Additional info: Fall, PT tender, xarelto TECHNIQUE: Imaging protocol: Computed tomography of the head without contrast. Radiation optimization: All CT scans at this facility use at least one of these dose optimization techniques: automated exposure control; mA and/or kV adjustment per patient size (includes targeted exams where dose is matched to clinical indication); or iterative reconstruction. COMPARISON: No relevant prior studies available. FINDINGS: Brain: There is no acute cortical infarction, intracranial hemorrhage or mass. There appear to be patchy focal low densities in the alexia which may be artifacts are due to prior lacunar infarctions. Ventricles: The ventricles appear enlarged, but not out of proportion to the degree of parenchymal volume loss. Bones/joints: Unremarkable. No acute fracture. Sinuses: The right maxillary antrum is hypoplastic. The paranasal sinuses are relatively clear. Mastoid air cells: The middle ear cavities and mastoid air cells are clear. Soft tissues: Unremarkable. IMPRESSION: No acute intracranial findings. Electronically signed by: Paulette Winslow On 11/26/2019 18:11:22 PM
--- NOTE | 2019-11-26 18:15 | REPVR ---
PROCEDURE INFORMATION: Exam: CT Cervical Spine Without Contrast Exam date and time: 11/26/2019 5:54 PM Age: 79 years old Clinical indication: Injury or trauma; Fall; Initial encounter; Blunt trauma; Additional info: Fall, PT tender, xarelto TECHNIQUE: Imaging protocol: Computed tomography images of the cervical spine without contrast. Radiation optimization: All CT scans at this facility use at least one of these dose optimization techniques: automated exposure control; mA and/or kV adjustment per patient size (includes targeted exams where dose is matched to clinical indication); or iterative reconstruction. COMPARISON: CR SPINE CERVICAL COMPLETE 11/26/2019 12:18 PM FINDINGS: Vertebrae: There is straightening of the normal cervical lordosis. No spinal canal stenosis or neural foraminal narrowing. No acute fracture or dislocation. Soft tissues: No prevertebral soft tissue swelling. Lungs: Lung apices are unremarkable. IMPRESSION: No acute fracture or dislocation in the cervical spine. Electronically signed by: Paulette Winslow On 11/26/2019 18:14:57 PM
--- NOTE | 2019-11-26 18:28 | REPVR ---
PROCEDURE INFORMATION: Exam: CT Thoracic Spine Without Contrast Exam date and time: 11/26/2019 5:54 PM Age: 79 years old Clinical indication: Injury or trauma; Fall; Initial encounter; Blunt trauma (contusions or hematomas); Additional info: Fall, PT tender, xarelto TECHNIQUE: Imaging protocol: Computed tomography images of the thoracic spine without contrast. Radiation optimization: All CT scans at this facility use at least one of these dose optimization techniques: automated exposure control; mA and/or kV adjustment per patient size (includes targeted exams where dose is matched to clinical indication); or iterative reconstruction. COMPARISON: No relevant prior studies available. FINDINGS: Vertebrae: Mild dextroconvex scoliosis. No acute fracture seen. Discs/Spinal canal/Neural foramina: No bony or overt soft tissue impingement upon the thoracic central spinal canal. No obvious epidural hematoma. There is mild to moderate mid to lower thoracic degenerative disc disease. Soft tissues: Unremarkable. Lymph nodes: There are calcified perihilar lymph nodes. Lungs: A right lower lobe cystic space is noted. Gallbladder and bile ducts: Cholecystectomy clips in the gallbladder fossa. Other findings: There are coronary artery calcifications. IMPRESSION: No acute fracture seen. Electronically signed by: Deanna Muñoz On 11/26/2019 18:28:30 PM
[2019-11-26 18:30] LABS: BASO % 0.6 % (0.0-1.0); EOS # 0.1 10^3/uL (0.0-0.5); EOS % 1.7 % (0.0-3.0); HEMATOCRIT 41.4 % (36.0-47.0); HEMOGLOBIN 13.8 g/dl (12.0-15.5); LYMPH # 2.7 10^3/uL (1.5-5.0); LYMPH % 39.5 % (24.0-44.0); MEAN CORPUSCULAR HEMOGLOBIN 29.9 pg (27.0-33.0); MEAN CORPUSCULAR HGB CONC 33.3 g/dl (32.0-36.5); MEAN CORPUSCULAR VOLUME 89.6 fl (80.0-96.0); MONO # 0.6 10^3/uL (0.0-0.8); MONO % 7.9 % (0.0-5.0); NEUTROPHILS # 3.5 10^3/uL (1.5-8.5); NEUTROPHILS % 50.2 % (36.0-66.0); PLATELET COUNT, AUTOMATED 300 10^3/uL (150-450); RED BLOOD COUNT 4.62 10^6/uL (4.00-5.40); WHITE BLOOD COUNT 6.9 10^3/uL (4.0-10.0)
--- NOTE | 2019-11-26 18:56 | REPVR ---
PROCEDURE INFORMATION: Exam: US Duplex Right Upper Extremity Veins, Limited Exam date and time: 11/26/2019 6:40 PM Age: 79 years old Clinical indication: Injury or trauma; Fall; Initial encounter; Blunt trauma (contusions or hematomas); Right; Upper extremity, upper arm and shoulder level; Vessel not specified; Injury date: 11/23/2019; Additional info: Fall, tender TECHNIQUE: Imaging protocol: Real-time Duplex ultrasound of the Right Upper Extremity with 2-D pierce scale, color Doppler flow and spectral waveform analysis with image documentation. Limited exam focused on the right upper extremity veins. COMPARISON: No relevant prior studies available. FINDINGS: Right deep veins: Unremarkable. Axillary and brachial veins are patent throughout without thrombus. Normal Doppler waveforms. Normal compressibility and/or augmentation response. Visualized subclavian vein is patent. The right internal jugular vein could not be visualized. Right superficial veins: Unremarkable. Visualized cephalic and basilic veins are patent without thrombus. Soft tissues: Unremarkable. IMPRESSION: 1. No evidence of deep or superficial venous thrombus in the visualized right upper extremity. 2. The right internal jugular vein as well as proximal subclavian vein were obscured by a cervical collar. Electronically signed by: Deanna Muñoz On 11/26/2019 18:56:44 PM
[2019-11-26] MEDS ORDERED: methocarbamoL 500 MG TAB PO ONE (19:15)
[2019-11-26] MEDS ORDERED: NORCO, ANEXSIA 5/325MG TABLET (HYDROcodone/ACETAMINOPHEN) PO ONE (19:30)
[2019-11-26 19:50] VITALS: BP 175/71
[2019-11-26] MEDS ORDERED: NORCO 5/325MG TABLET (BULK FOR ED) PO ONE (20:30)
[2019-11-26] MEDS ORDERED: ANEC4CRE3 TOP (20:31)
[2019-11-26] MEDS ORDERED: METH1TAB40 PO (20:31)
[2019-11-26 21:01] VITALS: BP 123/68
--- NOTE | 2019-11-27 10:36 | ECGEPIP ---
[facility] - ED Test Date: 2019-11-26 Pat Name: VIRGINIE BENSON Department: Room: - Gender: Female Club Director: DEMI : 1940 Requested By: KRISHNA Gonzales PA-C Order Number: [id number] Reading MD: Homer Branch Measurements Intervals [place] Rate: 127 P: PA: 0 QRS: -26 QRSD: 104 T: -18 QT: 316 QTc: 460 Interpretive Statements ATRIAL FIBRILLATION WITH RAPID VENTRICULAR RESPONSE BORDERLINE LEFT AXIS DEVIATION MINIMAL ST DEPRESSION RHYTHM/RATE CHANGE COMPARED TO 03/16/17 Electronically Signed on 11-27-2019 10:36:45 EDT by Homer Branch
== END 2019-11-26 21:23 | disposition home or self-care (01) ==
LOC: M ED 17:09
DX: M79.621 Pain in right upper arm (principal); M62.838 Other muscle spasm; I48.91 Unspecified atrial fibrillation; I10 Essential (primary) hypertension; Z79.899 Other long term (current) drug therapy; Z79.01 Long term (current) use of anticoagulants; Z88.8 Allergy status to other drugs, medicaments and biological substances; Z91.048 Other nonmedicinal substance allergy status
CPT/HCPCS: 36415; 70450; 72052; 72125; 72128; 73030; 80047; 81001; 85025; 93005; 93971; 99284; G0463

== ENCOUNTER → 2019-11-26 | Outpatient (CLI) | payer MEDICARE, OTHER ==
[~2019-11-26] MED LIST changes: +ACET-683 PO; +ANEC4CRE3 TOP; +CBD OIL; +CBD OIL TOP; +METH1TAB40 PO
--- NOTE | 2019-11-26 14:13 | REPPI ---
RIGHT SHOULDER, THREE VIEWS: There is no evidence of an acute fracture, dislocation or intrinsic bone disease. IMPRESSION: No fracture or dislocation. Electronically Signed by Willie Myers MD 11/26/2019 03:14 P
--- NOTE | 2019-11-27 10:35 | REPPI ---
CERVICAL SPINE SERIES: Nine views of the cervical spine are performed. No definite fracture or dislocation is seen. Vertebral bodies appear normal in height, but the C7 vertebral body is not well visualized. It is only seen on the two obtained swimmers views through the humerus and upper ribs and shoulder soft tissues. Cervical lordosis appears maintained. There is no prevertebral soft tissue swelling. There is mild spurring of C3-C6. There is mild disc space narrowing of C5-6. There is diffuse narrowing and sclerosis at the posterior facet joints. The dens appears intact. IMPRESSION: Mild degenerative changes. No definite fracture or dislocation. However, C7 is not well visualized. Recommend CT of the cervical spine to completely exclude cervical spine fracture. Electronically Signed by Willie Myers MD 11/27/2019 11:34 A
== END ==
LOC: M PLAIMG 12:06
PROVIDERS: ATTEND Nurse Practitioner Family
DX: M25.511 Pain in right shoulder (principal); R20.2 Paresthesia of skin; W19.XXXA Unspecified fall, initial encounter

== ENCOUNTER → 2020-02-14 | Outpatient (REF) | payer MEDICARE, OTHER ==
[~2020-02-14] MED LIST changes: +ACET-683 PO; +ANEC4CRE3 TOP; +CBD OIL; +CBD OIL TOP; +METH1TAB40 PO
[2020-02-14 14:18] LABS: HEMATOCRIT 41.6 % (36.0-47.0); HEMOGLOBIN 13.5 g/dl (12.0-15.5); MEAN CORPUSCULAR HEMOGLOBIN 30.3 pg (27.0-33.0); MEAN CORPUSCULAR HGB CONC 32.5 g/dl (32.0-36.5); MEAN CORPUSCULAR VOLUME 93.3 fl (80.0-96.0); PLATELET COUNT, AUTOMATED 321 10^3/uL (150-450); RED BLOOD COUNT 4.46 10^6/uL (4.00-5.40); WHITE BLOOD COUNT 6.9 10^3/uL (4.0-10.0)
[2020-02-14 14:32] LABS: ALBUMIN 3.4 GM/DL (3.2-5.2); ALT/SGPT 17 U/L (12-78); BILIRUBIN,TOTAL 0.3 MG/DL (0.2-1.0); BLOOD UREA NITROGEN 21 MG/DL (7-18); CALCIUM LEVEL 9.1 MG/DL (8.8-10.2); CARBON DIOXIDE LEVEL 26 MEQ/L (21-32); CHLORIDE LEVEL 106 MEQ/L (98-107); CHOLESTEROL LEVEL 228 MG/DL (<200); CHOLESTEROL RISK RATIO 7.125 (<5); FREE T4 1.26 NG/DL (0.76-1.46); GLOMERULAR FILTRATION RATE > 60.0 (>39); GLUCOSE, FASTING 96 MG/DL (70-100); HDL CHOLESTEROL 32 MG/DL (>40); NON-HDL-C 196 MG/DL; SODIUM LEVEL 142 MEQ/L (136-145); TOTAL PROTEIN 7.3 GM/DL (6.4-8.2); TRIGLYCERIDES LEVEL 457 MG/DL (<150)
== END ==
LOC: M SFHCADAM 07:57
PROVIDERS: ATTEND Family Medicine
DX: I48.0 Paroxysmal atrial fibrillation (principal); F43.21 Adjustment disorder with depressed mood; I11.9 Hypertensive heart disease without heart failure; E03.9 Hypothyroidism, unspecified; E78.2 Mixed hyperlipidemia

== ENCOUNTER → 2020-07-02 | Outpatient (CLI) | payer MEDICARE, OTHER | LOC: EEVIPCON 13:43 → M LABSMTC 13:43 | PROVIDERS: ATTEND Family Medicine | DX: Z20.828 Contact with and (suspected) exposure to other viral communicable diseases (principal) ==

== ENCOUNTER → 2020-10-16 | Outpatient (REF) | payer MEDICARE, OTHER ==
[~2020-10-16] MED LIST changes: +CYAN500T14 PO; -CYAN500T8 PO; +GABA-282 PO; -GABA-843 PO; +HYDR-3490 PO; -HYDR25TAB PO; +METH-1164 PO; -METH1TAB40 PO
[2020-10-16 13:39] LABS: HEMOGLOBIN 13.1 g/dl (12.0-15.5); MEAN CORPUSCULAR HEMOGLOBIN 29.4 pg (27.0-33.0); MEAN CORPUSCULAR VOLUME 91.9 fl (80.0-96.0); PLATELET COUNT, AUTOMATED 343 10^3/uL (150-450); RED BLOOD COUNT 4.46 10^6/uL (4.00-5.40); WHITE BLOOD COUNT 6.8 10^3/uL (4.0-10.0)
[2020-10-16 14:18] LABS: ALBUMIN 3.6 GM/DL (3.2-5.2); ALT/SGPT 12 U/L (12-78); BILIRUBIN,TOTAL 0.2 MG/DL (0.2-1.0); BLOOD UREA NITROGEN 17 MG/DL (7-18); CALCIUM LEVEL 9.2 MG/DL (8.8-10.2); CARBON DIOXIDE LEVEL 27 MEQ/L (21-32); CHLORIDE LEVEL 105 MEQ/L (98-107); CREATININE FOR GFR 0.88 MG/DL (0.55-1.30); GLOMERULAR FILTRATION RATE > 60.0 (>39); GLUCOSE, FASTING 92 MG/DL (70-100); POTASSIUM SERUM 4.1 MEQ/L (3.5-5.1); SODIUM LEVEL 139 MEQ/L (136-145); TOTAL PROTEIN 7.3 GM/DL (6.4-8.2)
== END ==
LOC: M SFHCADAM 11:07
PROVIDERS: ATTEND Family Medicine
DX: I48.0 Paroxysmal atrial fibrillation (principal); I11.9 Hypertensive heart disease without heart failure; E03.9 Hypothyroidism, unspecified

== ENCOUNTER 2020-11-16 14:36 | Emergency (ER) | payer MEDICARE, OTHER ==
--- NOTE | 2020-11-16 15:50 | REP ---
INDICATION: trauma, on Xarelto. COMPARISON: Comparison study November 26, 2019.. TECHNIQUE: Helical scanning is acquired. 5 mm axial images were reformatted. Coronal MPR images were generated. FINDINGS: Bone window settings demonstrate an intact bony calvarium. There is no evidence of skull fracture or incidental bony calvarial lesion. The visualized paranasal sinuses appear clear. No intraorbital abnormality is seen. On soft tissue window setting images; the lateral, third, and fourth ventricles are normal in size and position. Myers-white differentiation pattern is normal above and below the tentorium. There are is no evidence of intracranial hemorrhage. No mass, edema, infarction, or midline shift is seen. No extra-axial fluid collection is appreciated. There is mild generalized volume loss. Small vessel atherosclerotic changes are seen in the periventricular white matter of the frontal lobes bilaterally. These findings are unchanged from the November 26, 2019 prior study. There is vascular calcification also noted at the skull base. IMPRESSION: Generalized volume loss, small vessel atherosclerotic changes and mild vascular calcification. No acute intracranial abnormality.. <Electronically signed by Richmond Torres > 11/16/20 [id number]
--- NOTE | 2020-11-16 15:57 | REP ---
INDICATION: trauma, on Xarelto. COMPARISON: Comparison cervical spine CT study November 26, 2019.. TECHNIQUE: Helical scanning is acquired and overlapping 2 mm high resolution axial images were generated and reviewed at bone and soft tissue window settings. Coronal and sagittal multiplanar re-formations images are generated. FINDINGS: There is no evidence of cervical spine element fracture. No skull base fracture is seen. Cervical vertebral body heights are preserved. Alignment is normal. Facet joints are normally aligned bilaterally at each cervical level on multiplanar re-formations images. There is no evidence of intraspinal or paraspinal hematoma. No extra vertebral abnormality is seen. Degenerative disc disease is again noted at C3-4 C5-6 and C6-7. IMPRESSION: Degenerative spondylosis changes. No evidence of fracture or subluxation.. <Electronically signed by Richmond Torres > 11/16/20 [id number]
[2020-11-16] MEDS: METOPROLOL 5 MG/5 ML VIAL IV SCH ×3 (16:20→16:58)
[2020-11-16] MEDS ORDERED: fentaNYL 100 MCG/2 ML INJECTION (J3010) IV ONE (16:40)
--- NOTE | 2020-11-16 17:29 | REP ---
INDICATION: back pain. COMPARISON: Comparison chest x-ray February 28, 2017. TECHNIQUE: . Four views including AP chest x-ray. FINDINGS: Heart size is borderline unchanged. Pulmonary vasculature is not increased. The lung mariano are clear. The pleural angles are sharp. There are degenerative discogenic spurs in the thoracic spine multiple levels. There are clips in right upper quadrant. There is a granulomatous calcified lymph node in the right cyst mediastinum and granulomatous calcifications are seen in the right hilus. Multiple views of the ribcage bilaterally show no bony destructive lesion. No rib fracture is appreciated. Discogenic spurring is noted in the lumbar spine as well. No fracture or collapse is seen. IMPRESSION: No bony destructive lesion or rib fracture seen. Borderline heart size unchanged. Old granulomatous calcifications. <Electronically signed by Richmond Torres > 11/16/20 [id number]
[2020-11-16] MEDS ORDERED: SINEMET 25-100 MG TAB PO ONE (18:20)
[2020-11-16 18:49] VITALS: BP 108/81
[2020-11-16] MEDS ORDERED: RIVAROXABAN 20 MG TAB (XARELTO) PO ONE ×2 (19:00)
[2020-11-16 19:19] LABS: BASO % 0.3 % (0.0-1.0); EOS # 0.1 10^3/uL (0.0-0.5); EOS % 1.4 % (0.0-3.0); HEMATOCRIT 40.2 % (36.0-47.0); LYMPH # 2.7 10^3/uL (1.5-5.0); LYMPH % 34.5 % (24.0-44.0); MEAN CORPUSCULAR HEMOGLOBIN 29.2 pg (27.0-33.0); MEAN CORPUSCULAR HGB CONC 32.3 g/dl (32.0-36.5); MEAN CORPUSCULAR VOLUME 90.3 fl (80.0-96.0); MONO # 0.6 10^3/uL (0.0-0.8); MONO % 7.4 % (2.0-8.0); NEUTROPHILS # 4.4 10^3/uL (1.5-8.5); NEUTROPHILS % 56.1 % (36.0-66.0); PLATELET COUNT, AUTOMATED 313 10^3/uL (150-450); RED BLOOD COUNT 4.45 10^6/uL (4.00-5.40); WHITE BLOOD COUNT 7.9 10^3/uL (4.0-10.0)
--- NOTE | 2020-11-16 20:07 | ECGEPIP ---
[facility] - ED Test Date: 2020-11-16 Pat Name: VIRGINIE BENSON Department: Room: - Gender: Female Arborer: AMOS : 1940 Requested By: Jose Mendoza Order Number: [id number] Reading MD: Nataliya Amaya Measurements Intervals [place] Rate: 133 P: PA: QRS: -13 QRSD: 86 T: 15 QT: 298 QTc: 443 Interpretive Statements Atrial fibrillation with rapid ventricular response Low voltage QRS Nonspecific T wave abnormality similar 11/26/19 Electronically Signed on 11-16-2020 20:07:07 EDT by Nataliya Amaya
[2020-11-16 20:45] LABS: RSV AMPLIFICATION NEGATIVE (NEGATIVE)
[2020-11-16] MEDS ORDERED: KETOROLAC 30 MG/ML 1ML VIAL IV ONE (21:25)
[2020-11-16 23:44] VITALS: BP 109/59
== END 2020-11-16 23:50 | disposition home or self-care (01) ==
LOC: EDBD 14:36 → M ED 14:36
DX: I48.91 Unspecified atrial fibrillation (principal); S29.012A Strain of muscle and tendon of back wall of thorax, initial encounter; W01.198A Fall on same level from slipping, tripping and stumbling with subsequent striking against other object, initial encounter; Y92.018 Other place in single-family (private) house as the place of occurrence of the external cause; I10 Essential (primary) hypertension; G20 Parkinson's disease; G62.9 Polyneuropathy, unspecified; Z79.899 Other long term (current) drug therapy; Z79.890 Hormone replacement therapy; Z79.01 Long term (current) use of anticoagulants; Z88.8 Allergy status to other drugs, medicaments and biological substances; Z91.048 Other nonmedicinal substance allergy status
CPT/HCPCS: 70450; 71110; 72125; 80047; 84484; 85025; 87631; 93005; 96374; 96375; 99285; J1885; J3010

== ENCOUNTER 2021-01-13 14:07 | Inpatient (IN) | payer MEDICARE, OTHER ==
[~2021-01-13] VITALS: Ht 157.5 cm; Wt 102.8 kg
[~2021-01-13 14:07] MED LIST changes: +CARB-89 PO; -SINE25TA5 PO
[2021-01-13] MEDS ORDERED: PRAM1TAB7 PO (14:37)
[2021-01-13 15:00] LABS: BASO # 0.1 10^3/uL (0.0-0.2); BASO % 0.9 % (0.0-1.0); EOS # 0.1 10^3/uL (0.0-0.5); EOS % 2.5 % (0.0-3.0); HEMATOCRIT 36.6 % (36.0-47.0); HEMOGLOBIN 11.7 g/dl (12.0-15.5); LYMPH # 2.1 10^3/uL (1.5-5.0); LYMPH % 37.9 % (24.0-44.0); MEAN CORPUSCULAR HEMOGLOBIN 28.5 pg (27.0-33.0); MEAN CORPUSCULAR VOLUME 89.1 fl (80.0-96.0); MONO # 0.6 10^3/uL (0.0-0.8); MONO % 9.8 % (2.0-8.0); NEUTROPHILS # 2.7 10^3/uL (1.5-8.5); NEUTROPHILS % 48.7 % (36.0-66.0); PLATELET COUNT, AUTOMATED 316 10^3/uL (150-450); RED BLOOD COUNT 4.11 10^6/uL (4.00-5.40); WHITE BLOOD COUNT 5.6 10^3/uL (4.0-10.0)
[2021-01-13 15:31] LABS: ALBUMIN 3.6 GM/DL (3.2-5.2); ALT/SGPT 6 U/L (12-78); BILIRUBIN,DIRECT < 0.1 MG/DL (0.0-0.2); BILIRUBIN,TOTAL 0.3 MG/DL (0.2-1.0); CK-MB VALUE MASS < 1.0 NG/ML (<3.6); CPK CREATINE PHOSPHOKINASE 85 U/L (26-192); MB/CK RELATIVE INDEX 1.18 (< OR =4); TOTAL PROTEIN 7.4 GM/DL (6.4-8.2); TROPONIN I < 0.02 NG/ML (< 0.10)
--- NOTE | 2021-01-13 15:51 | REP ---
INDICATION: weakness COMPARISON: 11/16/2020 TECHNIQUE: Portable AP view of the chest FINDINGS: The mediastinum and cardiac silhouette are stable and within normal limits for portable technique. The lung mariano are clear without acute consolidation, effusion, or pneumothorax. Skeletal structures are intact. IMPRESSION: No acute cardiopulmonary process appreciated. <Electronically signed by Momo Perez > 01/13/21 [id number]
[2021-01-13 15:52] LABS: MAGNESIUM LEVEL 2.2 MG/DL (1.8-2.4); NT-PRO BNP 492 PG/ML (<450)
[2021-01-13] MEDS ORDERED: BENZ-52 PO (18:56)
[2021-01-13] MEDS ORDERED: XARE20TA PO (18:56)
[2021-01-13] MEDS ORDERED: D31000TA2 PO (18:56)
[2021-01-13] MEDS ORDERED: DILT120C89 PO (18:56)
[2021-01-13] MEDS ORDERED: CARB25TA9 PO (18:56)
[2021-01-13] MEDS ORDERED: CRAN400C PO (18:56)
[2021-01-13] MEDS ORDERED: SYNT100T PO (18:56)
[2021-01-13] MEDS ORDERED: OMEG10002 PO (18:56)
[2021-01-13] MEDS ORDERED: IBUP200C28 PO (18:57)
[2021-01-13 19:19] LABS: RSV AMPLIFICATION NEGATIVE (NEGATIVE)
--- NOTE | 2021-01-13 23:38 | HPEPDOC ---
[facility] Medical History & Physical Date of Admission January 13, 2021 Date of Service: January 13, 2021 History and Physical CHIEF COMPLAINT: Palpitations HISTORY OF PRESENT ILLNESS: 80-year-old female with a history of A. fib on Xa relto, hypothyroidism, Parkinson's disease, hyperlipidemia, presented to the ER complaining of a two-week period, palpitations, which became worse earlier today associated with shortness of breath. On her own to the ER, patient was found to be in atrial fibrillation with rapid ventricular rate is high as 140s. Dr. Delgado was called, who follows patient of the clinic, recommended IV Cardizem. Patient received 30 mg of IV Cardizem in divided doses after which she converted back to sinus rhythm and maintain a heart rate between 65 and 75 bpm. Patient states that her shortness of breath has improved since the Cardizem. Patient denies chest pain, fevers, chills, headache, nausea, vomiting or diarrhea. Of note, patient reports that her onset of symptoms after starting pramipexole approximately 2 weeks ago at her neurologist's office, Dr. Chaparro, for Parkinson's disease. Further endorses history of frequent falling, having had a 13 falls in the last 2 years approximately. She uses a rolling walker and is currently attempting to find a motorized scooter/wheelchair. Patient will be admitted to hospitalist service for management of atrial fibrillation with RVR. PAST MEDICAL HISTORY: HYPOTHYROIDISM ADENOMATOUS COLON POLYP HYPERLIPIDEMIA-- INTOLERANT OF MULTIPLE STATINS MELANOMA/LEFT LEG 1997 DR. MCFADDEN PREDIABETES METABOLIC SYNDROME HYPERTENSION VITAMIN D DEFICIENCY PEPTIC ULCER DISEASE 1979 BILAT HIP BURSITIS/ARTHRITIS--MRI 12/02 PARKINSON'S--FOLLOWED [facility]; MRI/MRA BRAIN DONE THERE DDD, HNP L4-5 MRI 07/04 PERIPHERAL NEUROPATHY LEGS--NCS/EMG AT NEURO 04/03 NPSG AT NEUROLOGY SHOWED LOUD SNORING, BUT NO NURYS AT FIB /RVR ECHO 03/06 LAE 33 MM, EF 65%, MILD RT VENT DILATATION/PULM HTN, AO SCLEROSIS (NO STENOSIS) COVID-19 (07/09) PAST SURGICAL HISTORY: HYSTERECTOMY APPENDECTOMY BREAST BX X 2--BENIGN MELANOMA RESECTED COLONOSCOPIES--ADENOMATOUS POLYPS 2014,2001,2006,08/30; 02/02 BASAL LIP ON LIP/ DR. VARGAS APPROX.10 YEARS SOCIAL HISTORY: Patient denies smoking Patient denies etoh use Patient denies illicit drug use FAMILY HISTORY: SIBLINGS: BROTHER--COLON CA, ALS, DM PATERNAL GRAND MOTHER: DIABETES, TYPE II ALLERGIES: Please see below. REVIEW OF SYSTEMS: 10 point review of systems completed, relevant findings are noted in HPI HOME MEDICATIONS: Please see below. PHYSICAL EXAMINATION: VITAL SIGNS: please see below General: NAD, comfortable HEENT: PERRLA, EOMI, sclerae clear Neck: supple, normal ROM, no JVD Respiratory: lungs CTAB, no wheeze, no rales, no crackles CVS: RRR, normal S1, S2, no murmurs Abdo: soft, no masses, no hepatosplenomegaly, BS+, no rebound tenderness Extremities: no edema, pulses 2+ MSK: no joint deformities, normal ROM Neuro: no focal neuro deficits, moving all 4 extremities, CN2-12 intact. Strength 5/5 in all 4 extremities. No nystagmus. Psych: calm, cooperative, AAO x 3 LABORATORY DATA: See below. MICROBIOLOGY: Please see below. ASSESSMENT: 80-year-old female with a history of A. fib on Xarelto, hypothyroidism, Parkinson's disease, hyperlipidemia, presented to the ER complaining of a two-week period, palpitations, which became worse earlier today associated with shortness of breath. Found to be in afib with RVR. S/p 30 mg IV cardizem in divided doses, converted to NSR. . PLAN: Afib with RVR - known hx of atrial fibrillation, follows with Dr. Delgado - has been c/o palpitations for past 2 weeks - convered to NSR after IV cardizem 10 mg x 3. - takes cardizem 240 mg daily PO, not on BB. - Discussed with Dr. Delgado. Initially though to be on cardizem 120 mg daily, and to increase to 240. At this stage, will keep cardizem at 240 mg PO, and touch base regarding futher med changes in am. - continue with xarelto - will obtain 2D echo - TSH 4.35, FT4 1.12. Parkinson's disease - follows with Dr. Chaparro - takes carbidopa/levodopa - recently started on pramipexole. There may exist increased risk of cardiac arrhythmias - will hold for now, can discuss with Dr. Chaparro in am if wishes to continue. - pt also c/o slowing speech, difficulty with expression. - patient states that she had a recent MRI ordered as outpatient with neurology - to obtain records, if not performed, would obtain MR HTN - c/w hydrochlorothiazide Frequent falls - in setting of parkinsons - PT/OT ordered - c/w b12, vit D supplementation DVT ppx: xarelto. Almazan. SCDs. Dispo: pending clinical improvement. Vital Signs Vital Signs Date Time Temp Pulse Resp B/P (MAP) Pulse Ox O2 Delivery O2 Flow Rate FiO2 01/13/21 22:46 67 97 01/13/21 22:45 147/66 (93) 01/13/21 19:15 Room Air 01/13/21 18:45 18 01/13/21 14:21 96.2 Laboratory Data Labs 24H Laboratory Tests 2 01/13/21 14:38: Magnesium Level 2.2, Total Bilirubin 0.3, Direct Bilirubin < 0.1, Aspartate Amino Transf (AST/SGOT) 13, Alanine Aminotransferase (ALT/SGPT) 6L, Alkaline Phosphatase 80, Total Creatine Kinase 85, Creatine Kinase MB < 1.0, Creatine Kinase MB Relative Index 1.18, Troponin I < 0.02, CT-Pii-I-Type Natriuretic Peptide 492H, Total Protein 7.4, Albumin 3.6, Albumin/Globulin Ratio 0.9L, Thyroid Stimulating Hormone (TSH) 4.350H 01/13/21 14:39: Immature Granulocyte % (Auto) 0.2, Neutrophils (%) (Auto) 48.7, Lymphocytes (%) (Auto) 37.9, Monocytes (%) (Auto) 9.8H, Eosinophils (%) (Auto) 2.5, Basophils (%) (Auto) 0.9, Neutrophils # (Auto) 2.7, Lymphocytes # (Auto) 2.1, Monocytes # (Auto) 0.6, Eosinophils # (Auto) 0.1, Basophils # (Auto) 0.1, Nucleated Red Blood Cells % (auto) 0.0, POC Glucose (Misc Panel) 107H, POC Sodium (Misc Panel) 137, POC Potassium (Misc Panel) 3.6, POC Chloride (Misc Panel) 100, POC Total CO2 (Misc Panel) 31.0H, POC Blood Urea Nitrogen (Misc Panel 16, POC Ionized Calcium (Misc Panel) 4.6, POC Creatinine (Misc Panel) 0.9, POC Hematocrit (Misc Panel) 37.0L 01/13/21 18:33: Coronavirus (COVID-19)(PCR) NEGATIVE, Influenza Type A (RT-PCR) NEGATIVE, Influenza Type B (RT-PCR) NEGATIVE, Respiratory Syncytial Virus (PCR) NEGATIVE CBC/BMP Laboratory Tests 01/13/21 14:39 Home Medications Scheduled Carbidopa/Levodopa (Carbidopa-Levodopa 25-100 Tab) 1 Each Tablet, 2 TAB PO QID 0800, 1200, 1600, 2000 Cholecalciferol (Vitamin D3) (Vitamin D3) 1,000 Unit Tablet, 1,000 UNITS PO DAILY Cranberry (Cranberry) 400 Mg Capsule, 400 MG PO DAILY Cyanocobalamin (Vitamin B-12) (Vitamin B-12) 1,000 Mcg Tab, 1,000 MCG PO DAILY Hydrochlorothiazide (Hydrochlorothiazide) 25 Mg Tab, 25 MG PO DAILY Levothyroxine Sodium (Synthroid) 100 Mcg Tablet, 100 MCG PO DAILY [place]-3/Dha/Epa/Fish Oil (Fish Oil 1,000 mg Softgel) 1 Each Capsule, 1,000 MG PO BID Omeprazole (Omeprazole) 40 Mg Cap, 40 MG PO QPM Pramipexole Di-HCl (Pramipexole Dihydrochloride) 1 Mg Tablet, 1 MG PO TID 1000, 1400, 1800 Rivaroxaban (Xarelto) 20 Mg Tablet, 20 MG PO QPM dilTIAZem HCl (Diltiazem 24Hr Cd) 120 Mg Cap.er.24h, 240 MG PO DAILY Scheduled PRN Acetaminophen (Acetaminophen) 500 Mg Tablet, 1,000 MG PO Q6H PRN for PAIN Ibuprofen (Ibuprofen) 200 Mg Capsule, 400 MG PO QID PRN for PAIN Propylene Glycol/Peg 400 (Systane 0.3-0.4% Eye Drops) 15 Ml Griselda, 1 DROP OU BID PRN for DRY EYES Allergies Coded Allergies: aspirin (Verified Adverse Reaction, Intermediate, GI BLEED, 01/13/21) SECONDARY TO ULCER cerivastatin (Verified Adverse Reaction, Intermediate, MYALGIAS, 11/26/19) gemfibrozil (Verified Adverse Reaction, Intermediate, MYALGIAS, 11/26/19) lisinopril (Verified Adverse Reaction, Intermediate, HOARSE VOICE COUGH, 11/26/19) niacin (Verified Adverse Reaction, Intermediate, FLUSHED, 11/26/19) sibutramine (Verified Adverse Reaction, Intermediate, MYALGIAS, 11/26/19) simvastatin (Verified Adverse Reaction, Intermediate, MYALGIAS, 11/26/19) TAPE (Verified Adverse Reaction, Mild, BREAKS OUT, 01/13/21) IMAN MONROE MD January 13, 2021 23:38
[2021-01-13] MEDS ORDERED: ACETAMINOPHEN TAB 650MG DOSE (2X325MG) PO PRN (23:40)
[2021-01-13] MEDS ORDERED: POLYVINYL ALCOHOL OPHTH SOLN 15 ML(LIQUITEARS) OU PRN (23:40)
[2021-01-13] MEDS ORDERED: MOM 30ML SUSPENSION UDC PO PRN (23:40)
[2021-01-13] MEDS ORDERED: MAALOX 30 ML SUSP *UDC PO PRN (23:40)
[2021-01-14 00:04] LABS: FREE T4 1.12 NG/DL (0.76-1.46)
[2021-01-14] MEDS: OMEGA-3 1000MG CAPSULE PO SCH ×3 (01:13→20:23)
[2021-01-14] MEDS: RIVAROXABAN 20 MG TAB (XARELTO) PO SCH ×2 (01:13→20:23)
[2021-01-14] MEDS: SINEMET 25-100 MG TAB PO SCH ×5 (01:13→20:23)
[2021-01-14] MEDS: OMEPRAZOLE 20 MG CAP PO SCH ×2 (01:13→20:23)
[2021-01-14 03:45] VITALS: BP 112/52
--- NOTE | 2021-01-14 05:41 | ECGEPIP ---
[facility] - ED Test Date: 2021-01-13 Pat Name: VIRGINIE BENSON Department: Room: - Gender: Female President [employer] Institution: [employer] : 1940 Requested By: Jas Jeffery Order Number: [id number] Reading MD: Homer Branch Measurements Intervals [place] Rate: 105 P: PA: QRS: -5 QRSD: 84 T: 1 QT: 320 QTc: 422 Interpretive Statements Atrial fibrillation with rapid ventricular response Low voltage QRS Nonspecific ST and T wave abnormality SIMILAR TO 11/16/20 Electronically Signed on 01-14-2021 5:41:47 EDT by Homer Branch
[2021-01-14 05:47] LABS: BASO % 0.6 % (0.0-1.0); EOS # 0.1 10^3/uL (0.0-0.5); EOS % 1.6 % (0.0-3.0); HEMATOCRIT 36.9 % (36.0-47.0); HEMOGLOBIN 11.7 g/dl (12.0-15.5); LYMPH # 1.9 10^3/uL (1.5-5.0); MEAN CORPUSCULAR HEMOGLOBIN 28.5 pg (27.0-33.0); MEAN CORPUSCULAR HGB CONC 31.7 g/dl (32.0-36.5); MONO # 0.5 10^3/uL (0.0-0.8); MONO % 8.4 % (2.0-8.0); NEUTROPHILS # 3.6 10^3/uL (1.5-8.5); NEUTROPHILS % 58.2 % (36.0-66.0); PLATELET COUNT, AUTOMATED 286 10^3/uL (150-450); WHITE BLOOD COUNT 6.2 10^3/uL (4.0-10.0)
[2021-01-14] MEDS: LEVOTHYROXINE 100MCG TABLET (0.1MG) PO SCH (06:13)
[2021-01-14 07:46] LABS: ALBUMIN 3.3 GM/DL (3.2-5.2); ALT/SGPT < 6 U/L (12-78); BILIRUBIN,TOTAL 0.5 MG/DL (0.2-1.0); BLOOD UREA NITROGEN 17 MG/DL (7-18); CALCIUM LEVEL 8.9 MG/DL (8.8-10.2); CARBON DIOXIDE LEVEL 29 MEQ/L (21-32); CHLORIDE LEVEL 105 MEQ/L (98-107); CREATININE FOR GFR 0.77 MG/DL (0.55-1.30); FERRITIN 10 NG/ML (8-252); GLOMERULAR FILTRATION RATE > 60.0 (>39); GLUCOSE, FASTING 100 MG/DL (70-100); IRON (FE) 115 UG/DL (50-170); MAGNESIUM LEVEL 2.2 MG/DL (1.8-2.4); PERCENT SATURATION 32.3 % (13.2-45.0); POTASSIUM SERUM 3.7 MEQ/L (3.5-5.1); SODIUM LEVEL 140 MEQ/L (136-145); TOTAL IRON BINDING CAPACITY 356 UG/DL (250-450); TOTAL PROTEIN 6.7 GM/DL (6.4-8.2)
[2021-01-14 08:00] VITALS: BP 128/67
[2021-01-14] MEDS: DOCUSATE SODIUM 100MG CAPSULE PO SCH ×3 (08:45→20:23)
[2021-01-14] MEDS: CYANOCOBALAMIN 500 MCG TAB PO SCH (08:46)
[2021-01-14] MEDS: VITAMIN D 1,000 INTERNATIONAL UNITS TABLET PO SCH (08:46)
--- NOTE | 2021-01-14 11:44 | IPNPDOC ---
Date Seen The patient was seen on 01/14/21. Progress Note SUBJECTIVE: Patient was seen and examined this morning. She currently denies any acute complaints. There were no adverse events reported overnight. The patient does remain with the elevated heart rate around 130s-140s. She is asymptomatic. She denies any shortness of breath OBJECTIVE PHYSICAL EXAMINATION: VITAL SIGNS: Please see below. GENERAL APPEARANCE: Awake, alert, and oriented. Appears in no acute distress. Lying comfortably in bed HEENT: Atraumatic, normocephalic. Eyes are nonicteric. Trachea is midline. Mucous membranes are pink and moist CARDIOVASCULAR: Normal S1, S2. Irregularly irregular rhythm with a tachycardic rate. No clicks, rubs, or murmurs LUNGS: Clear vesicular breath sounds bilaterally. No wheezes, rhonchi, or rales ABDOMEN: Obese Soft, nondistended. Nontender. No rebound tenderness or guarding. Normoactive bowel sounds. EXTREMITIES: Trace bilateral pitting edema. Full and equal pulses in bilateral upper and lower extremities NEUROLOGICAL: No focal neurological deficits PSYCHIATRIC: Mood and affect appear appropriate LABORATORY DATA, IMAGING STUDIES, MICROBIOLOGY: Please see below. DVT prophylaxis ordered?: Xarelto ASSESSMENT AND PLAN: Patient is a 80-year-old in with a past medical history significant for Paroxysmal atrial fibrillation on Xarelto, Parkinson's disease, and hypothyroidism who presented to [facility] emergency with complaint of palpitations and tremors of breath and found to be in atrial fibrillation with RVR. PROBLEMS: 1. Atrial fibrillation with rapid ventricular response -Patient is noted to fibrillation. She currently follows Dr. montez. She is on Cardizem CD 120 mg 2 pills daily for a total dose of 240 mg daily. She takes Xarelto for anticoagulation. -She is currently asymptomatic, although her rate is still fairly fast. We'll increase her Cardizem to 360 mg daily. We'll keep her on telemetry and monitor for improvement. -Continue Xarelto -Echocardiogram pending -TSH of 4.35. Could consider cutting back on her levothyroxine dose if the increased dose of Cardizem does not help with correction of her RVR. 2. Parkinson's disease -Follows with neurology outpatient. -Continue carbidopa/levodopa 3., Hypertension -Will decrease her hydrochlorothiazide to 12.5 mg daily as we have recently i ncreased her Cardizem dose. Titrate her blood pressure medications as necessary. 4. History of falls -Patient has Parkinson's disease. She states she is pretty functional home. She does have full support. Plan is to discharge home after clinical improvement. 5. DVT prophylaxis -Continue Xarelto CODE STATUS: Patient has wished to be DNR/DNI. Code Status has been updated accordingly to DNR/DNI DISPOSITION: Pending clinical improvement. Likely discharge in 24-48 hrs. VS, I&O, 24H, Fishbone Vital Signs/I&O Vital Signs Date Time Temp Pulse Resp B/P (MAP) Pulse Ox O2 Delivery O2 Flow Rate FiO2 01/14/21 08:46 134 128/67 01/14/21 08:00 97.3 18 98 Room Air Laboratory Data 24H LABS Laboratory Tests 2 01/13/21 14:38: Magnesium Level 2.2, Total Bilirubin 0.3, Direct Bilirubin < 0.1, Aspartate Amino Transf (AST/SGOT) 13, Alanine Aminotransferase (ALT/SGPT) 6L, Alkaline Phosphatase 80, Total Creatine Kinase 85, Creatine Kinase MB < 1.0, Creatine Kinase MB Relative Index 1.18, Troponin I < 0.02, NP-Edc-D-Type Natriuretic Peptide 492H, Total Protein 7.4, Albumin 3.6, Albumin/Globulin Ratio 0.9L, Thyroid Stimulating Hormone (TSH) 4.350H, Free Thyroxine 1.12 01/13/21 14:39: Immature Granulocyte % (Auto) 0.2, Neutrophils (%) (Auto) 48.7, Lymphocytes (%) (Auto) 37.9, Monocytes (%) (Auto) 9.8H, Eosinophils (%) (Auto) 2.5, Basophils (%) (Auto) 0.9, Neutrophils # (Auto) 2.7, Lymphocytes # (Auto) 2.1, Monocytes # (Auto) 0.6, Eosinophils # (Auto) 0.1, Basophils # (Auto) 0.1, Nucleated Red Blood Cells % (auto) 0.0, POC Glucose (Misc Panel) 107H, POC Sodium (Misc Panel) 137, POC Potassium (Misc Panel) 3.6, POC Chloride (Misc Panel) 100, POC Total CO2 (Misc Panel) 31.0H, POC Blood Urea Nitrogen (Misc Panel 16, POC Ionized Calcium (Misc Panel) 4.6, POC Creatinine (Misc Panel) 0.9, POC Hematocrit (Misc Panel) 37.0L 01/13/21 18:33: Coronavirus (COVID-19)(PCR) NEGATIVE, Influenza Type A (RT-PCR) NEGATIVE, Influenza Type B (RT-PCR) NEGATIVE, Respiratory Syncytial Virus (PCR) NEGATIVE 01/14/21 05:27: Magnesium Level 2.2, Total Bilirubin 0.5#, Aspartate Amino Transf (AST/SGOT) 12, Alanine Aminotransferase (ALT/SGPT) < 6L, Alkaline Phosphatase 64, Total Protein 6.7, Albumin 3.3, Albumin/Globulin Ratio 1.0L, Immature Granulocyte % (Auto) 0.2, Neutrophils (%) (Auto) 58.2, Lymphocytes (%) (Auto) 31.0, Monocytes (%) (Auto) 8.4H, Eosinophils (%) (Auto) 1.6, Basophils (%) (Auto) 0.6, Neutrophils # (Auto) 3.6, Lymphocytes # (Auto) 1.9, Monocytes # (Auto) 0.5, Eosinophils # (Auto) 0.1, Basophils # (Auto) 0.0, Nucleated Red Blood Cells % (auto) 0.0, Anion Gap 6L, Glomerular Filtration Rate > 60.0, Calcium Level 8.9, Iron Level 115, Total Iron Binding Capacity 356, Transferrin % Saturation 32.3, Ferritin 10 CBC/BMP Laboratory Tests 01/13/21 14:39 01/14/21 05:27 GME ATTESTATION GME ATTESTATION My faculty preceptor for this patient encounter was physically present during the encounter and was fully available. All aspects of the patient interview, examination, medical decision making process, and medical care plan development were reviewed and approved by the faculty preceptor. The faculty preceptor is aware and concurs with the plan as stated in the body of this note and will attest to such by his/her cosignature. ATTENDING NOTE I, Ariel Rueda MD, have independently examined this patient and performed my own physical exam, as well as reviewed the documentation and edited where necessary. I have discussed in detail with the resident / student the findings and plan of treatment as documented by the resident / student and edited their note. I agree with their findings and treatment plan and have edited their doc umentation. FLORY VALENTE DO January 14, 2021 11:44 ARIEL RUEDA MD Jan 19, 2021 09:48
[2021-01-14 11:45] VITALS: BP 121/65
[2021-01-14 11:53] LABS: FOLATE 22.1 NG/ML (>5.4); VITAMIN B12 LEVEL 1219 PG/ML (247-911)
[2021-01-14 16:00] VITALS: BP 135/69
[2021-01-14 20:00] VITALS: BP 120/85
[2021-01-14 23:59] VITALS: BP 102/72
[2021-01-15 04:01] VITALS: BP 118/79
[2021-01-15] MEDS: LEVOTHYROXINE 100MCG TABLET (0.1MG) PO SCH (05:42)
[2021-01-15 05:55] LABS: BASO # 0.1 10^3/uL (0.0-0.2); BASO % 0.8 % (0.0-1.0); EOS # 0.1 10^3/uL (0.0-0.5); EOS % 2.3 % (0.0-3.0); HEMATOCRIT 38.7 % (36.0-47.0); HEMOGLOBIN 12.2 g/dl (12.0-15.5); LYMPH # 2.2 10^3/uL (1.5-5.0); LYMPH % 36.7 % (24.0-44.0); MEAN CORPUSCULAR HGB CONC 31.5 g/dl (32.0-36.5); MEAN CORPUSCULAR VOLUME 88.8 fl (80.0-96.0); MONO # 0.5 10^3/uL (0.0-0.8); MONO % 8.2 % (2.0-8.0); NEUTROPHILS # 3.2 10^3/uL (1.5-8.5); NEUTROPHILS % 51.7 % (36.0-66.0); PLATELET COUNT, AUTOMATED 334 10^3/uL (150-450); RED BLOOD COUNT 4.36 10^6/uL (4.00-5.40); WHITE BLOOD COUNT 6.1 10^3/uL (4.0-10.0)
[2021-01-15 06:26] LABS: ALT/SGPT 10 U/L (12-78); BILIRUBIN,TOTAL 0.3 MG/DL (0.2-1.0); BLOOD UREA NITROGEN 14 MG/DL (7-18); CARBON DIOXIDE LEVEL 25 MEQ/L (21-32); CHLORIDE LEVEL 108 MEQ/L (98-107); CREATININE FOR GFR 0.78 MG/DL (0.55-1.30); GLOMERULAR FILTRATION RATE > 60.0 (>39); GLUCOSE, FASTING 93 MG/DL (70-100); POTASSIUM SERUM 3.5 MEQ/L (3.5-5.1); SODIUM LEVEL 140 MEQ/L (136-145); TOTAL PROTEIN 7.2 GM/DL (6.4-8.2)
[2021-01-15 08:00] VITALS: BP 140/92
[2021-01-15 08:15] VITALS: BP 140/92
[2021-01-15] MEDS: SINEMET 25-100 MG TAB PO SCH ×3 (08:15→15:18)
[2021-01-15] MEDS: CYANOCOBALAMIN 500 MCG TAB PO SCH (08:15)
[2021-01-15] MEDS: VITAMIN D 1,000 INTERNATIONAL UNITS TABLET PO SCH (08:16)
[2021-01-15] MEDS: OMEGA-3 1000MG CAPSULE PO SCH (08:16)
[2021-01-15] MEDS: DOCUSATE SODIUM 100MG CAPSULE PO SCH (08:16)
[2021-01-15] MEDS ORDERED: hydroCHLOROthiazide 12.5 MG CAPSULE PO SCH (09:00)
[2021-01-15] MEDS ORDERED: diltiaZEM **CD** 180 MG CAP PO SCH (09:00)
--- NOTE | 2021-01-15 09:28 | ECHO ---
ECHOCARDIOGRAM DATE OF PROCEDURE: 01/14/2021 Age: 80 Gender: Female Height: Weight: REFERRING PHYSICIAN: Samson Gonsalez MD. REASON FOR STUDY: Atrial fibrillation. PATIENT LOCATION: Room 3223. 2D MEASUREMENTS: IVS 0.9 cm LV 5.1 cm LVPW 0.9 cm LA 3.7 cm Aorta 2.8 cm DOPPLER MEASUREMENT Peak velocity across the aortic valve 1.5 m/s Peak velocity across the LVOT 1.1 m/s Peak gradient across the aortic valve 9 mmHg Mean gradient across the aortic valve 5 mmHg Maximum tricuspid valve velocity 2.4 m/s 2D COMMENTS: 1. Normal left ventricular size, wall thickness, and probably mildly depressed global left ventricular systolic function. The patient overall during the test was tachycardic. The estimated global left ventricular systolic ejection fraction is 45%. There was global mild hypokinesis. 2. Subjectively, the left atrium appeared to be mildly enlarged. The right atrium appeared to be minimally enlarged. The right ventricle also appeared to be mildly enlarged, but was marco well. 3. The atrial septum appeared to be normal without evidence of defect or shunt. 4. Normal aortic root. 5. A small pericardial effusion was noted. No evidence of cardiac tamponade. 6. Mildly calcified aortic valve with normal leaflet excursion. Normal mitral valve and tricuspid valve. The pulmonic valve and proximal pulmonary artery branches were not well visualized. 7. Subjectively, the inferior vena cava appeared to be mildly enlarged. 8. Doppler detects trace aortic regurgitation, trace mitral regurgitation, and mild tricuspid regurgitation. The calculated pulmonary artery systolic pressure varies between 30 to 40 mmHg. Assessment of the left ventricular diastolic function was limited in view of the underlying atrial fibrillation. IMPRESSION: 1. Probably mildly depressed global left ventricular systolic function, may be related to the underlying atrial fibrillation with a rapid ventricular rate. 2. Assessment of the left ventricular diastolic function was limited in view of the underlying atrial fibrillation. 3. Mildly enlarged left atrium with trace mitral regurgitation. 4. Aortic valve sclerosis with trace aortic regurgitation. 5. Mild tricuspid regurgitation with probably mild pulmonary hypertension. The right heart chambers appear to be minimally enlarged, but the right ventricle was marco well. 6. A small pericardial effusion was noted, no evidence of cardiac tamponade.
[2021-01-15] MEDS ORDERED: CARD180C4 PO (10:51)
[2021-01-15] MEDS ORDERED: HYDR12CA PO (10:51)
[2021-01-15 12:00] VITALS: BP 118/83
--- NOTE | 2021-01-15 13:46 | DS.PDOC ---
Discharge Summary General Date of Admission January 13, 2021 at 23:38 Date of Discharge 01/15/21 Primary Care Physician: Jas Jeffery MD Attending Physician: ARIEL RUEDA MD Discharge Summary PROCEDURES PERFORMED DURING STAY: [None]. ADMITTING DIAGNOSES: 1. Atrial Fibrillation with RVR 2. Parkinsons Disease 3. HTN 4. History of Falls DISCHARGE DIAGNOSES: 1. Atrial Fibrillation with RVR 2. Parkinsons Disease 3. HTN 4. History of Falls COMPLICATIONS/CHIEF COMPLAINT: Atrial Fibrillation With Rvr. HISTORY OF PRESENT ILLNESS: Patient was a 80 year old female with a past medical history significant for parkinsons disease, hypertension, atrial fibrillation, and hypothyroidism who presented to the [facility] ER with complaint of shortness of breath. Patient had stated that she was at home when she developed shortness of breath. Additionally, at the time the patients daughter stated that she looked pale and possibly had some facial dropping. Patient stated that she was recently started on Pramipexole by Neurology and that she was getting on and off fabián rtness of breath since then. She stated that she has had falls in the past but denies any recent falls or increased weakness. She denied any chest pain. At presentation to the ED the patient was noted to be in atrial fibrillation with rapid ventricular response. She was given 3 doses of IV cardizem with appropriate response in ventricular rate. The patient was then admitted to hospitalist service for further evaluation and management. On admission the patient was continued on telemetry monitoring. She was found to be tachycardic and in atrial fibrillation but denied any symptoms. Her HR was ~120-130s. Her dose of Cardizem was increased to try and achieve better rate control. Her hydrochlorothiazide dose was reduced to avoid hypotension. Patients total Cardizem dose was 360mg daily. This was found to provide adequate rate control with an average rate of 90-100. An echocardiogram was obtained which demonstrated a LVEF of 45% however the patient was tachycardic at the time the echocardiogram was performed. Additionally, he PASP was 30-40mmHg. Her previous echocardiogram in 2017 demonstrated an LVEF of 65%. It was felt that the reduced LVEF was secondary to her tachycardic rate or a possible tachycardia induced cardiomyopathy. Patient was recommended to follow-up with her certified breastfeeding educator after discharge HOSPITAL COURSE: 1. Atrial fibrillation with rapid ventricular response -Patient is noted to fibrillation. She currently follows Dr. montez. She is on Cardizem CD 120 mg 2 pills daily for a total dose of 240 mg daily. She takes Xarelto for anticoagulation. -She is currently asymptomatic, although her rate is still fairly fast. - Cardizem dose increased to 360 mg daily -Continue Xarelto -Echocardiogram demonstrating LVEF of 45% and elevated PASP of 30-40mmHg. -Patient recommended to follow-up with Dr. Delgado in 5-7 days -Follow-up with PCP in 1-2 weeks 2. Parkinson's disease -Follows with neurology outpatient. -Continue carbidopa/levodopa -Have stopped Pramipexole on discharge. Patient instructed to speak with Cardiology to discuss possible etiology of her RVR 3., Hypertension -Will decrease her hydrochlorothiazide to 12.5 mg daily as we have recently increased her Cardizem dose 4. History of falls -Patient has Parkinson's disease. She states she is pretty functional home. She does have full support. Plan is to discharge home after clinical improveme nt. DISCHARGE MEDICATIONS: Please see below. ALLERGIES: Please see below. PHYSICAL EXAMINATION ON DISCHARGE: VITAL SIGNS: Please see below. GENERAL APPEARANCE: Awake, alert, and oriented. Appears in no acute distress. Lying comfortably in bed HEENT: Atraumatic, normocephalic. Eyes are nonicteric. Trachea is midline. Mucous membranes are pink and moist CARDIOVASCULAR: Normal S1, S2. Irregularly irregular rhythm with a tachycardic rate. No clicks, rubs, or murmurs LUNGS: Clear vesicular breath sounds bilaterally. No wheezes, rhonchi, or rales ABDOMEN: Obese Soft, nondistended. Nontender. No rebound tenderness or guarding. Normoactive bowel sounds. EXTREMITIES: Trace bilateral pitting edema. Full and equal pulses in bilateral upper and lower extremities NEUROLOGICAL: No focal neurological deficits PSYCHIATRIC: Mood and affect appear appropriate LABORATORY DATA: Please see below. IMAGING: INDICATION: weakness COMPARISON: 11/16/2020 TECHNIQUE: Portable AP view of the chest FINDINGS: The mediastinum and cardiac silhouette are stable and within normal limits for portable technique. The lung mariano are clear without acute consolidation, effusion, or pneumothorax. Skeletal structures are intact. IMPRESSION: No acute cardiopulmonary process appreciated. PROGNOSIS: Fair ACTIVITY: [As tolerated]. DIET: 2G sodium, consistent carb DISCHARGE PLAN: Discharge home with follow-up with cardiology in 5-7 days. Follow-up with PCP in 1-2 weeks. Continue Cardizem 360mg daily. Reduce hydrochlorothiazide to 12.5 mg daily DISCHARGE CONDITION: [Stable]. TIME SPENT ON DISCHARGE: Greater than 35 minutes. Vital Signs/I&Os Vital Signs Date Time Temp Pulse Resp B/P (MAP) Pulse Ox O2 Delivery O2 Flow Rate FiO2 01/15/21 08:15 114 140/92 01/15/21 08:00 97.7 18 95 Room Air I&O- Last 24 Hours up to 6 AM 01/15/21 06:00 Intake Total 520 ml Balance 520 ml Laboratory Data Labs 24H Laboratory Tests 2 01/15/21 05:31: Immature Granulocyte % (Auto) 0.3, Neutrophils (%) (Auto) 51.7, Lymphocytes (%) (Auto) 36.7, Monocytes (%) (Auto) 8.2H, Eosinophils (%) (Auto) 2.3, Basophils (%) (Auto) 0.8, Neutrophils # (Auto) 3.2, Lymphocytes # (Auto) 2.2, Monocytes # (Auto) 0.5, Eosinophils # (Auto) 0.1, Basophils # (Auto) 0.1, Nucleated Red Blood Cells % (auto) 0.3H, Anion Gap 7L, Glomerular Filtration Rate > 60.0, Calcium Level 9.0, Magnesium Level 2.0, Total Bilirubin 0.3, Aspartate Amino Transf (AST/SGOT) 17, Alanine Aminotransferase (ALT/SGPT) 10L, Alkaline Phosphatase 71, Total Protein 7.2, Albumin 3.0L, Albumin/Globulin Ratio 0.7L CBC/BMP Laboratory Tests 01/15/21 05:31 Discharge Medications Scheduled Carbidopa/Levodopa (Carbidopa-Levodopa 25-100 Tab) 1 Each Tablet, 2 TAB PO QID, (Reported) 0800, 1200, 1600, 2000 Cholecalciferol (Vitamin D3) (Vitamin D3) 1,000 Unit Tablet, 1,000 UNITS PO DAILY, (Reported) Cranberry (Cranberry) 400 Mg Capsule, 400 MG PO DAILY, (Reported) Cyanocobalamin (Vitamin B-12) (Vitamin B-12) 1,000 Mcg Tab, 1,000 MCG PO DAILY, (Reported) Diltiazem Hcl (Cardizem Cd) 180 Mg Cap.er.24h, 360 MG PO DAILY Take TWO tablets once daily Hydrochlorothiazide (Hydrochlorothiazide) 12.5 Mg Capsule, 12.5 MG PO DAILY Levothyroxine Sodium (Synthroid) 100 Mcg Tablet, 100 MCG PO DAILY, (Reported) [place]-3/Dha/Epa/Fish Oil (Fish Oil 1,000 mg Softgel) 1 Each Capsule, 1,000 MG PO BID, (Reported) Omeprazole (Omeprazole) 40 Mg Cap, 40 MG PO QPM, (Reported) Rivaroxaban (Xarelto) 20 Mg Tablet, 20 MG PO QPM, (Reported) Scheduled PRN Acetaminophen (Acetaminophen) 500 Mg Tablet, 1,000 MG PO Q6H PRN for PAIN, (Reported) Ibuprofen (Ibuprofen) 200 Mg Capsule, 400 MG PO QID PRN for PAIN, (Reported) Propylene Glycol/Peg 400 (Systane 0.3-0.4% Eye Drops) 15 Ml Griselda, 1 DROP OU BID PRN for DRY EYES, (Reported) Allergies Coded Allergies: aspirin (Verified Adverse Reaction, Intermediate, GI BLEED, 01/13/21) SECONDARY TO ULCER cerivastatin (Verified Adverse Reaction, Intermediate, MYALGIAS, 11/26/19) gemfibrozil (Verified Adverse Reaction, Intermediate, MYALGIAS, 11/26/19) lisinopril (Verified Adverse Reaction, Intermediate, HOARSE VOICE COUGH, 11/26/19) niacin (Verified Adverse Reaction, Intermediate, FLUSHED, 11/26/19) sibutramine (Verified Adverse Reaction, Intermediate, MYALGIAS, 11/26/19) simvastatin (Verified Adverse Reaction, Intermediate, MYALGIAS, 11/26/19) TAPE (Verified Adverse Reaction, Mild, BREAKS OUT, 01/13/21) GME ATTESTATION GME ATTESTATION My faculty preceptor for this patient encounter was physically present during the encounter and was fully available. All aspects of the patient interview, examination, medical decision making process, and medical care plan development were reviewed and approved by the faculty preceptor. The faculty preceptor is aware and concurs with the plan as stated in the body of this note and will attest to such by his/her cosignature. ATTENDING NOTE I, Ariel Rueda MD, have independently examined this patient and performed my own physical exam, as well as reviewed the documentation and edited where necessary. I have discussed in detail with the resident / student the findings and plan of treatment as documented by the resident / student and edited their note. I agree with their findings and treatment plan and have edited their documentation. Total time spent on this discharge including coordination of care, review of chart , documentation and actual patient contact is around 32 minutes FLORY VALENTE DO January 15, 2021 13:46 ARIEL RUEDA MD Jan 19, 2021 09:52
== END 2021-01-15 16:08 | disposition home health service (06) | DRG 310 ==
LOC: EDBD 14:07 → M ED 14:07 → M ED INP 23:38 → ENRESERV 01-14 02:48 → M PCU 01-14 03:57
PROVIDERS: ADMIT Family Medicine; ATTEND Internal Medicine
DX: I48.91 Unspecified atrial fibrillation (principal); G20 Parkinson's disease; I10 Essential (primary) hypertension; E03.9 Hypothyroidism, unspecified; E78.5 Hyperlipidemia, unspecified; R29.6 Repeated falls; Z66 Do not resuscitate; Z20.822 Contact with and (suspected) exposure to COVID-19; Z79.01 Long term (current) use of anticoagulants; Z79.899 Other long term (current) drug therapy; Z88.6 Allergy status to analgesic agent; Z88.8 Allergy status to other drugs, medicaments and biological substances

== ENCOUNTER → 2021-04-21 | Outpatient (REF) | payer MEDICARE, MEDICAID ==
[~2021-04-21] MED LIST changes: +BENZ-52 PO; +CARB25TA9 PO; +CARD180C4 PO; +CRAN400C PO; +D31000TA2 PO; +DILT120C89 PO; +HYDR12CA PO; +IBUP200C28 PO; +OMEG10002 PO; +OMEP40CA4 PO; -OMEP40CA97 PO; +PRAM1TAB7 PO; +SYNT100T PO
[2021-04-21 17:09] LABS: WHITE BLOOD COUNT 5.7 10^3/uL (4.0-10.0)
[2021-04-21 17:10] LABS: HEMATOCRIT 40.1 % (36.0-47.0); HEMOGLOBIN 12.7 g/dl (12.0-15.5); MEAN CORPUSCULAR HEMOGLOBIN 27.9 pg (27.0-33.0); MEAN CORPUSCULAR HGB CONC 31.7 g/dl (32.0-36.5); MEAN CORPUSCULAR VOLUME 88.1 fl (80.0-96.0); PLATELET COUNT, AUTOMATED 334 10^3/uL (150-450); RED BLOOD COUNT 4.55 10^6/uL (4.00-5.40)
[2021-04-21 17:44] LABS: ALBUMIN 3.4 GM/DL (3.2-5.2); ALT/SGPT 10 U/L (12-78); BILIRUBIN,TOTAL 0.3 MG/DL (0.2-1.0); BLOOD UREA NITROGEN 15 MG/DL (7-18); CALCIUM LEVEL 8.8 MG/DL (8.8-10.2); CARBON DIOXIDE LEVEL 28 MEQ/L (21-32); CHLORIDE LEVEL 106 MEQ/L (98-107); CHOLESTEROL LEVEL 232 MG/DL (<200); CREATININE FOR GFR 0.84 MG/DL (0.55-1.30); FREE T4 0.94 NG/DL (0.76-1.46); GLOMERULAR FILTRATION RATE > 60.0 (>39); GLUCOSE, FASTING 102 MG/DL (70-100); HDL CHOLESTEROL 40 MG/DL (>40); LDL CHOLESTEROL 137 MG/DL (<100); NON-HDL-C 192 MG/DL; SODIUM LEVEL 141 MEQ/L (136-145); TOTAL PROTEIN 7.2 GM/DL (6.4-8.2); TRIGLYCERIDES LEVEL 275 MG/DL (<150)
== END ==
LOC: M SFHCADAM 15:28
PROVIDERS: ATTEND Family Medicine
DX: I48.0 Paroxysmal atrial fibrillation (principal); I11.9 Hypertensive heart disease without heart failure; E03.9 Hypothyroidism, unspecified
CPT/HCPCS: 80053; 80061; 84439; 84443; 85027; G0463

== ENCOUNTER → 2021-06-22 | Outpatient (REF) | payer MEDICARE, MEDICAID ==
[2021-06-22 14:09] LABS: APPEARANCE, URINE CLOUDY (CLEAR); BACTERIA, URINE AUTO 1+ (NEGATIVE); BILIRUBIN, URINE AUTO NEGATIVE (NEGATIVE); BLOOD, URINE BLOOD 2+ (NEGATIVE); COLOR, URINE YELLOW (YELLOW); GLUCOSE, URINE (UA) AUTO NEGATIVE (NEGATIVE); KETONE, URINE AUTO NEGATIVE (NEGATIVE); LEUKOCYTE ESTERASE, URINE AUTO 3+ (NEGATIVE); MUCUS, URINE SMALL (NEGATIVE); NITRITE, URINE AUTO NEGATIVE (NEGATIVE); PROTEIN, URINE AUTO 1+ mg/dL (NEGATIVE); RBC, URINE AUTO 27 /HPF (0-3); SPECIFIC GRAVITY URINE AUTO 1.008 (1.002-1.035); SQUAMOUS EPITHELIAL CELL UR AU 5 /HPF (0-6); UROBILINOGEN, URINE AUTO 0.2 mg/dL (0.0-2.0); WBC, URINE AUTO TNTC /HPF (0-3)
== END ==
LOC: M SFHCADAM 11:15
PROVIDERS: ATTEND Physician Assistant
DX: R30.0 Dysuria (principal)

== ENCOUNTER → 2021-10-21 | Outpatient (REF) | payer MEDICARE, MEDICAID ==
[~2021-10-21] MED LIST changes: -D31000TA2 PO; +VITA100093 PO
[2021-10-21 17:25] LABS: HEMATOCRIT 39.7 % (36.0-47.0); HEMOGLOBIN 12.6 g/dl (12.0-15.5); MEAN CORPUSCULAR HEMOGLOBIN 28.1 pg (27.0-33.0); MEAN CORPUSCULAR HGB CONC 31.7 g/dl (32.0-36.5); MEAN CORPUSCULAR VOLUME 88.4 fl (80.0-96.0); PLATELET COUNT, AUTOMATED 313 10^3/uL (150-450); RED BLOOD COUNT 4.49 10^6/uL (4.00-5.40); WHITE BLOOD COUNT 5.9 10^3/uL (4.0-10.0)
[2021-10-21 18:30] LABS: ALBUMIN 3.5 GM/DL (3.2-5.2); ALT/SGPT 10 U/L (12-78); BILIRUBIN,TOTAL 0.3 MG/DL (0.2-1.0); BLOOD UREA NITROGEN 17 MG/DL (7-18); CALCIUM LEVEL 8.8 MG/DL (8.8-10.2); CARBON DIOXIDE LEVEL 30 MEQ/L (21-32); CHLORIDE LEVEL 104 MEQ/L (98-107); CREATININE FOR GFR 0.88 MG/DL (0.55-1.30); FREE T4 1.11 NG/DL (0.76-1.46); GLOMERULAR FILTRATION RATE > 60.0 (>32); GLUCOSE, FASTING 92 MG/DL (70-100); POTASSIUM SERUM 4.4 MEQ/L (3.5-5.1); SODIUM LEVEL 139 MEQ/L (136-145); TOTAL PROTEIN 7.4 GM/DL (6.4-8.2)
[2021-10-21 19:17] LABS: HEMOGLOBIN A1c 5.6 %
== END ==
LOC: M SFHCADAM 11:19
PROVIDERS: ATTEND Family Medicine
DX: I11.9 Hypertensive heart disease without heart failure (principal); E03.9 Hypothyroidism, unspecified; I48.0 Paroxysmal atrial fibrillation; R73.9 Hyperglycemia, unspecified; Z87.11 Personal history of peptic ulcer disease

== ENCOUNTER → 2022-05-11 | Outpatient (REF) | payer MEDICARE, MEDICAID, OTHER ==
[2022-05-11 13:22] LABS: HEMATOCRIT 43.4 % (36.0-47.0); HEMOGLOBIN 13.8 g/dl (12.0-15.5); MEAN CORPUSCULAR HEMOGLOBIN 29.4 pg (27.0-33.0); MEAN CORPUSCULAR HGB CONC 31.8 g/dl (32.0-36.5); MEAN CORPUSCULAR VOLUME 92.5 fl (80.0-96.0); PLATELET COUNT, AUTOMATED 344 10^3/uL (150-450); RED BLOOD COUNT 4.69 10^6/uL (4.00-5.40); WHITE BLOOD COUNT 6.1 10^3/uL (4.0-10.0)
[2022-05-11 14:09] LABS: ALBUMIN 3.6 GM/DL (3.2-5.2); ALT/SGPT 10 U/L (12-78); BILIRUBIN,TOTAL 0.3 MG/DL (0.2-1.0); BLOOD UREA NITROGEN 15 MG/DL (7-18); CARBON DIOXIDE LEVEL 27 MEQ/L (21-32); CHLORIDE LEVEL 106 MEQ/L (98-107); CHOLESTEROL LEVEL 197 MG/DL (<200); CREATININE FOR GFR 0.91 MG/DL (0.55-1.30); GLOMERULAR FILTRATION RATE > 60.0 (>32); GLUCOSE, FASTING 96 MG/DL (70-100); HDL CHOLESTEROL 42 MG/DL (>40); LDL CHOLESTEROL 110 MG/DL (<100); NON-HDL-C 155 MG/DL; POTASSIUM SERUM 4.4 MEQ/L (3.5-5.1); SODIUM LEVEL 140 MEQ/L (136-145); TOTAL PROTEIN 7.6 GM/DL (6.4-8.2); TRIGLYCERIDES LEVEL 226 MG/DL (<150)
== END ==
LOC: M SFHCADAM 09:21
PROVIDERS: ATTEND Family Medicine
DX: I48.0 Paroxysmal atrial fibrillation (principal); E03.9 Hypothyroidism, unspecified; E78.2 Mixed hyperlipidemia; I11.9 Hypertensive heart disease without heart failure; Z87.11 Personal history of peptic ulcer disease

== ENCOUNTER → 2022-09-22 | Outpatient (REF) | payer MEDICARE, MEDICAID, OTHER ==
[~2022-09-22] MED LIST changes: -BENZ-52 PO; +BENZ1TAB5 PO; +CARB-113 PO; -CARB-89 PO
[2022-09-22 16:29] LABS: HEMATOCRIT 40.2 % (36.0-47.0); HEMOGLOBIN 12.8 g/dl (12.0-15.5); MEAN CORPUSCULAR HEMOGLOBIN 29.6 pg (27.0-33.0); MEAN CORPUSCULAR HGB CONC 31.8 g/dl (32.0-36.5); MEAN CORPUSCULAR VOLUME 92.8 fl (80.0-96.0); PLATELET COUNT, AUTOMATED 326 10^3/uL (150-450); RED BLOOD COUNT 4.33 10^6/uL (4.00-5.40); WHITE BLOOD COUNT 6.7 10^3/uL (4.0-10.0)
[2022-09-22 21:22] LABS: ALBUMIN 3.7 G/DL (3.2-5.2); ALKALINE PHOSPHATASE 63 U/L (46-116); ALT/SGPT < 9 U/L (7.0-40); AST/SGOT 19 U/L (<34); BILIRUBIN,TOTAL 0.3 MG/DL (0.3-1.2); BLOOD UREA NITROGEN 11 MG/DL (9-23); CALCIUM LEVEL 8.7 MG/DL (8.3-10.6); CARBON DIOXIDE LEVEL 28 MMOL/L (20-31); CHLORIDE LEVEL 102 MMOL/L (98-107); GLOMERULAR FILTRATION RATE > 60.0 (>32); GLUCOSE, FASTING 87 MG/DL (74-106); SODIUM LEVEL 137 MMOL/L (136-145); TOTAL PROTEIN 7.4 G/DL (5.7-8.2)
[2022-09-22 21:35] LABS: FREE T4 1.24 NG/DL (0.89-1.76); THYROID STIMULATING HORMONE 1.531 uIU/ML (0.55-4.78)
== END ==
LOC: M SFHCADAM 11:27
PROVIDERS: ATTEND Family Medicine
DX: I50.30 Unspecified diastolic (congestive) heart failure (principal); I11.0 Hypertensive heart disease with heart failure; E03.9 Hypothyroidism, unspecified

== ENCOUNTER → 2022-09-22 | Outpatient (CLI) | payer MEDICARE, MEDICAID, OTHER ==
[~2022-09-22] MED LIST changes: -COZA100T2 PO; +COZA100T3 PO; +DILT180C95 PO; +MAGN400T35 PO; +METO50TA7 PO; +VITA100T29 PO
== END ==
LOC: M ADAMS 11:36
PROVIDERS: ATTEND Family Medicine
DX: I50.30 Unspecified diastolic (congestive) heart failure (principal)

== ENCOUNTER 2022-11-07 00:19 | Observation (INO) | payer MEDICARE, OTHER ==
[~2022-11-07] VITALS: Ht 157.5 cm; Wt 110.3 kg
[~2022-11-07 00:19] MED LIST changes: -DILT180C95 PO; -MAGN400T35 PO; -METO50TA7 PO; -VITA100T29 PO
[2022-11-07 00:46] LABS: BASO % 0.2 % (0.0-1.0); EOS % 0.5 % (0.0-3.0); HEMATOCRIT 39.6 % (36.0-47.0); LYMPH # 1.2 10^3/uL (1.5-5.0); LYMPH % 29.1 % (24.0-44.0); MEAN CORPUSCULAR HGB CONC 32.8 g/dl (32.0-36.5); MEAN CORPUSCULAR VOLUME 91.5 fl (80.0-96.0); MONO # 0.5 10^3/uL (0.0-0.8); MONO % 11.6 % (2.0-8.0); NEUTROPHILS # 2.4 10^3/uL (1.5-8.5); NEUTROPHILS % 58.4 % (36.0-66.0); PLATELET COUNT, AUTOMATED 262 10^3/uL (150-450); RED BLOOD COUNT 4.33 10^6/uL (4.00-5.40); WHITE BLOOD COUNT 4.1 10^3/uL (4.0-10.0)
[2022-11-07 00:58] LABS: INR 2.56; PROTHROMBIN TIME 27.9 SECONDS (12.5-14.5)
[2022-11-07 01:18] LABS: LIPASE 20 U/L (12-53)
[2022-11-07 01:19] LABS: CK-MB VALUE MASS 1.2 NG/ML (<3.6)
[2022-11-07 01:20] LABS: AMYLASE 40 U/L (30-118)
[2022-11-07 01:21] LABS: ALBUMIN 3.4 G/DL (3.2-5.2); ALKALINE PHOSPHATASE 110 U/L (46-116); ALT/SGPT 143 U/L (7.0-40); AST/SGOT 427 U/L (<34); BILIRUBIN,DIRECT 0.4 MG/DL (<0.4); BILIRUBIN,TOTAL 0.8 MG/DL (0.3-1.2); BLOOD UREA NITROGEN 13 MG/DL (9-23); CALCIUM LEVEL 7.8 MG/DL (8.3-10.6); CARBON DIOXIDE LEVEL 26 MMOL/L (20-31); CHLORIDE LEVEL 103 MMOL/L (98-107); CREATININE FOR GFR 0.65 MG/DL (0.55-1.30); GLOMERULAR FILTRATION RATE > 60.0 (>32); GLUCOSE, FASTING 113 MG/DL (74-106); POTASSIUM SERUM 3.6 MMOL/L (3.5-5.1); SODIUM LEVEL 138 MMOL/L (136-145); TOTAL PROTEIN 6.8 G/DL (5.7-8.2)
[2022-11-07 01:36] LABS: CPK CREATINE PHOSPHOKINASE 150 U/L (34-145)
[2022-11-07 03:06] LABS: CK-MB VALUE MASS 1.4 NG/ML (<3.6)
[2022-11-07 03:13] LABS: MB/CK RELATIVE INDEX 0.83 (< OR =4)
[2022-11-07] MEDS ORDERED: NS 500 ML IV ONE (04:40)
[2022-11-07] MEDS ORDERED: NS 1,000 ML IV SCH (04:50)
[2022-11-07] MEDS ORDERED: ACETAMINOPHEN TAB 650MG DOSE (2X325MG) PO PRN (04:50)
[2022-11-07] MEDS ORDERED: HYDR-3490 PO (05:18)
[2022-11-07] MEDS ORDERED: METO50TA7 PO (05:18)
[2022-11-07] MEDS ORDERED: DILT180C95 PO (05:18)
[2022-11-07] MEDS ORDERED: MAGN400T35 PO (05:20)
[2022-11-07] MEDS ORDERED: VITA100T29 PO (05:20)
[2022-11-07] MEDS ORDERED: HOME MED LIST COMPLETE! XX SCH (05:25)
[2022-11-07] MEDS ORDERED: POLYVINYL ALCOHOL OPHTH SOLN 15ML (LIQUITEARS) OU PRN (05:40)
[2022-11-07] MEDS: SINEMET 25-100 MG TAB PO SCH ×5 (07:00→21:37)
[2022-11-07 07:30] LABS: BASO % 0.5 % (0.0-1.0); HEMATOCRIT 38.1 % (36.0-47.0); HEMOGLOBIN 12.4 g/dl (12.0-15.5); LYMPH # 1.2 10^3/uL (1.5-5.0); LYMPH % 30.8 % (24.0-44.0); MEAN CORPUSCULAR HGB CONC 32.5 g/dl (32.0-36.5); MONO # 0.4 10^3/uL (0.0-0.8); MONO % 11.5 % (2.0-8.0); NEUTROPHILS # 2.1 10^3/uL (1.5-8.5); NEUTROPHILS % 55.9 % (36.0-66.0); PLATELET COUNT, AUTOMATED 240 10^3/uL (150-450); RED BLOOD COUNT 4.14 10^6/uL (4.00-5.40); WHITE BLOOD COUNT 3.8 10^3/uL (4.0-10.0)
[2022-11-07 07:50] LABS: BLOOD UREA NITROGEN 11 MG/DL (9-23); CALCIUM LEVEL 7.7 MG/DL (8.3-10.6); CARBON DIOXIDE LEVEL 23 MMOL/L (20-31); CHLORIDE LEVEL 106 MMOL/L (98-107); CREATININE FOR GFR 0.62 MG/DL (0.55-1.30); GLOMERULAR FILTRATION RATE > 60.0 (>32); GLUCOSE, FASTING 101 MG/DL (74-106); MAGNESIUM LEVEL 1.8 MG/DL (1.8-2.4); POTASSIUM SERUM 4.1 MMOL/L (3.5-5.1); SODIUM LEVEL 137 MMOL/L (136-145)
[2022-11-07 09:00] VITALS: BP 128/63
[2022-11-07] MEDS: OMEGA-3 1000MG CAPSULE PO SCH (09:30)
[2022-11-07] MEDS: LEVOTHYROXINE 100MCG TABLET (0.1MG) PO SCH (09:30)
[2022-11-07] MEDS: CYANOCOBALAMIN 500 MCG TAB PO SCH (09:31)
[2022-11-07] MEDS: VITAMIN D 1,000 INTERNATIONAL UNITS TABLET PO SCH (09:32)
[2022-11-07] MEDS: METOPROLOL TART 25 MG TABLET PO SCH ×2 (09:32→21:42)
[2022-11-07] MEDS: MAGNESIUM OXIDE 400MG TAB (MAG-OX) PO SCH ×2 (09:32→21:40)
[2022-11-07] MEDS ORDERED: PERCOCET 5MG/325MG TAB PO PRN (10:25)
[2022-11-07] MEDS ORDERED: FUROSEMIDE 20MG/2ML VIAL IV ONE (12:00)
[2022-11-07 14:00] VITALS: BP_SYST 126; BP_SYST 158; BP_DIAS 102; BP_DIAS 65
[2022-11-07] MEDS ORDERED: IPRATROPIUM 0.5MG/ALBUTEROL 2.5MG INH SOL UD 3ML (DUONEB) NEB PRN (18:05)
[2022-11-07 20:00] VITALS: BP 125/67
[2022-11-07] MEDS ORDERED: RIVAROXABAN 20MG TAB (XARELTO) PO SCH (21:00)
[2022-11-07] MEDS ORDERED: OMEPRAZOLE 20MG CAP PO SCH (21:00)
[2022-11-07] MEDS: NYSTATIN 100,000 UNITS/GM TOPICAL PWD 15GM TOP SCH (21:38)
[2022-11-08 06:00] VITALS: BP 108/69
[2022-11-08] MEDS: LEVOTHYROXINE 100MCG TABLET (0.1MG) PO SCH (06:01)
[2022-11-08] MEDS: SINEMET 25-100 MG TAB PO SCH ×4 (06:01→16:06)
[2022-11-08] MEDS: VITAMIN D 1,000 INTERNATIONAL UNITS TABLET PO SCH (09:59)
[2022-11-08] MEDS: OMEGA-3 1000MG CAPSULE PO SCH (09:59)
[2022-11-08] MEDS: MAGNESIUM OXIDE 400MG TAB (MAG-OX) PO SCH (10:00)
[2022-11-08] MEDS: CYANOCOBALAMIN 500 MCG TAB PO SCH (10:00)
[2022-11-08 10:02] VITALS: BP 123/78
[2022-11-08] MEDS: METOPROLOL TART 25 MG TABLET PO SCH (10:02)
[2022-11-08] MEDS: NYSTATIN 100,000 UNITS/GM TOPICAL PWD 15GM TOP SCH (10:02)
[2022-11-08 14:00] VITALS: BP 121/78
[2022-11-08] MEDS ORDERED: CALC500C16 PO (18:47)
== END 2022-11-08 16:14 ==
LOC: EDBD 00:19 → M ED 00:19 → M ED INP 04:49 → INTOOBSV 04:49 → ENRESERV 07:59 → M MSPAV 09:00
PROVIDERS: ADMIT Internal Medicine; ATTEND Internal Medicine
DX: S63.92XA Sprain of unspecified part of left wrist and hand, initial encounter (principal); R53.1 Weakness; W01.0XXA Fall on same level from slipping, tripping and stumbling without subsequent striking against object, initial encounter; Y92.098 Other place in other non-institutional residence as the place of occurrence of the external cause; Y93.01 Activity, walking, marching and hiking; R26.89 Other abnormalities of gait and mobility; K52.9 Noninfective gastroenteritis and colitis, unspecified; G20 Parkinson's disease; E87.8 Other disorders of electrolyte and fluid balance, not elsewhere classified; E83.51 Hypocalcemia; I48.0 Paroxysmal atrial fibrillation; I11.0 Hypertensive heart disease with heart failure; I50.9 Heart failure, unspecified; K21.9 Gastro-esophageal reflux disease without esophagitis; E03.9 Hypothyroidism, unspecified; G62.9 Polyneuropathy, unspecified; Z74.09 Other reduced mobility; Z95.0 Presence of cardiac pacemaker; Z87.891 Personal history of nicotine dependence; Z88.8 Allergy status to other drugs, medicaments and biological substances; Z88.6 Allergy status to analgesic agent; Z91.048 Other nonmedicinal substance allergy status; Z79.899 Other long term (current) drug therapy; Z79.890 Hormone replacement therapy; Z79.01 Long term (current) use of anticoagulants

== ENCOUNTER 2022-11-08 12:43 | Inpatient (IN) | payer MEDICARE, OTHER ==
[~2022-11-08] VITALS: Ht 157.5 cm; Wt 106.1 kg
[~2022-11-08 12:43] MED LIST changes: +DILT180C95 PO; +MAGN400T35 PO; +METO50TA7 PO; +VITA100T29 PO
[2022-11-08 16:18] VITALS: BP 135/75
[2022-11-08] MEDS ORDERED: ONDANSETRON 4MG TAB PO PRN (17:35)
[2022-11-08] MEDS ORDERED: BISACODYL 10MG SUPP PR PRN (17:35)
[2022-11-08] MEDS ORDERED: oxyCODONE 5MG TAB PO PRN (17:35)
[2022-11-08] MEDS ORDERED: CALC500C16 PO (18:47)
[2022-11-08] MEDS: SINEMET 25-100 MG TAB PO SCH (18:57)
[2022-11-08] MEDS: RIVAROXABAN 20MG TAB (XARELTO) PO SCH (18:57)
[2022-11-08] MEDS: COMBIVENT RESPIMAT 100-20MCG INHALER 4GM INH SCH (19:59)
[2022-11-08 20:00] VITALS: BP 116/55
[2022-11-08] MEDS: MAGNESIUM OXIDE 400MG TAB (MAG-OX) PO SCH (20:12)
[2022-11-08] MEDS: DOCUSATE SODIUM 100MG CAPSULE PO SCH (20:13)
[2022-11-08] MEDS: METOPROLOL TART 25 MG TABLET PO SCH (20:15)
[2022-11-08] MEDS: REMEDY PHYTOPLEX Z-GUARD PASTE 113GM TUBE (FROM STOREROOM PRODUCT) TOP SCH (20:15)
[2022-11-08] MEDS ORDERED: SENNA 8.6 MG TAB (SENOKOT) PO SCH (21:00)
[2022-11-09] MEDS ORDERED: UNRESOLVED CLARIFICATION ENTRY XX SCH (00:01)
[2022-11-09] MEDS: LEVOTHYROXINE 100MCG TABLET (0.1MG) PO SCH (05:31)
[2022-11-09] MEDS: SINEMET 25-100 MG TAB PO SCH ×5 (05:31→18:33)
[2022-11-09 06:00] VITALS: BP 120/57
[2022-11-09 07:01] LABS: BASO % 0.6 % (0.0-1.0); EOS # 0.1 10^3/uL (0.0-0.5); EOS % 2.7 % (0.0-3.0); HEMATOCRIT 37.7 % (36.0-47.0); HEMOGLOBIN 12.5 g/dl (12.0-15.5); LYMPH # 1.6 10^3/uL (1.5-5.0); LYMPH % 30.6 % (24.0-44.0); MEAN CORPUSCULAR HEMOGLOBIN 30.6 pg (27.0-33.0); MEAN CORPUSCULAR HGB CONC 33.2 g/dl (32.0-36.5); MEAN CORPUSCULAR VOLUME 92.2 fl (80.0-96.0); MONO # 0.3 10^3/uL (0.0-0.8); MONO % 6.6 % (2.0-8.0); NEUTROPHILS # 3.1 10^3/uL (1.5-8.5); NEUTROPHILS % 59.3 % (36.0-66.0); PLATELET COUNT, AUTOMATED 267 10^3/uL (150-450); RED BLOOD COUNT 4.09 10^6/uL (4.00-5.40); WHITE BLOOD COUNT 5.2 10^3/uL (4.0-10.0)
[2022-11-09] MEDS: COMBIVENT RESPIMAT 100-20MCG INHALER 4GM INH SCH ×3 (07:27→20:01)
[2022-11-09 07:45] LABS: ALKALINE PHOSPHATASE 87 U/L (46-116); ALT/SGPT 35 U/L (7.0-40); AST/SGOT 53 U/L (<34); BILIRUBIN,TOTAL 0.4 MG/DL (0.3-1.2); BLOOD UREA NITROGEN 12 MG/DL (9-23); CALCIUM LEVEL 8.6 MG/DL (8.3-10.6); CARBON DIOXIDE LEVEL 29 MMOL/L (20-31); CHLORIDE LEVEL 105 MMOL/L (98-107); CREATININE FOR GFR 0.65 MG/DL (0.55-1.30); GLOMERULAR FILTRATION RATE > 60.0 (>32); GLUCOSE, FASTING 105 MG/DL (74-106); POTASSIUM SERUM 3.7 MMOL/L (3.5-5.1); SODIUM LEVEL 142 MMOL/L (136-145); TOTAL PROTEIN 6.2 G/DL (5.7-8.2)
[2022-11-09] MEDS ORDERED: D5W/0.9% SODIUM CHLORIDE 1,000 ML IV SCH (07:55)
[2022-11-09] MEDS: DOCUSATE SODIUM 100MG CAPSULE PO SCH (09:00)
[2022-11-09 09:38] VITALS: BP 130/79
[2022-11-09] MEDS: OMEGA-3 1000MG CAPSULE PO SCH (09:41)
[2022-11-09] MEDS: PANTOPRAZOLE 40MG TAB (PROTONIX) PO SCH (09:41)
[2022-11-09] MEDS: METOPROLOL TART 25 MG TABLET PO SCH ×2 (09:42→20:46)
[2022-11-09] MEDS: MAGNESIUM OXIDE 400MG TAB (MAG-OX) PO SCH ×2 (09:42→20:45)
[2022-11-09] MEDS: VITAMIN D 1,000 INTERNATIONAL UNITS TABLET PO SCH (09:43)
[2022-11-09] MEDS: hydroCHLOROthiazide 12.5 MG CAPSULE PO SCH (09:43)
[2022-11-09] MEDS: REMEDY PHYTOPLEX Z-GUARD PASTE 113GM TUBE (FROM STOREROOM PRODUCT) TOP SCH ×3 (09:46→20:47)
[2022-11-09 14:56] VITALS: BP 131/82
[2022-11-09] MEDS: RIVAROXABAN 20MG TAB (XARELTO) PO SCH (18:33)
[2022-11-09 20:30] VITALS: BP 120/72
[2022-11-09] MEDS ORDERED: DOCUSATE SODIUM 100MG CAPSULE PO PRN (21:00)
[2022-11-09] MEDS ORDERED: SENNA 8.6 MG TAB (SENOKOT) PO PRN (21:00)
[2022-11-10 06:08] VITALS: BP 120/68
[2022-11-10] MEDS: LEVOTHYROXINE 100MCG TABLET (0.1MG) PO SCH (06:21)
[2022-11-10] MEDS: SINEMET 25-100 MG TAB PO SCH ×5 (06:21→18:21)
[2022-11-10] MEDS: COMBIVENT RESPIMAT 100-20MCG INHALER 4GM INH SCH ×3 (07:13→20:53)
[2022-11-10] MEDS: OMEGA-3 1000MG CAPSULE PO SCH (09:01)
[2022-11-10] MEDS: VITAMIN D 1,000 INTERNATIONAL UNITS TABLET PO SCH (09:01)
[2022-11-10] MEDS: hydroCHLOROthiazide 12.5 MG CAPSULE PO SCH (09:01)
[2022-11-10] MEDS: MAGNESIUM OXIDE 400MG TAB (MAG-OX) PO SCH ×2 (09:01→20:25)
[2022-11-10] MEDS: PANTOPRAZOLE 40MG TAB (PROTONIX) PO SCH (09:01)
[2022-11-10] MEDS: METOPROLOL TART 25 MG TABLET PO SCH ×2 (09:02→20:26)
[2022-11-10] MEDS: REMEDY PHYTOPLEX Z-GUARD PASTE 113GM TUBE (FROM STOREROOM PRODUCT) TOP SCH ×3 (09:02→20:24)
[2022-11-10 14:00] VITALS: BP 115/67
[2022-11-10] MEDS: RIVAROXABAN 20MG TAB (XARELTO) PO SCH (18:20)
[2022-11-10 20:45] VITALS: BP 124/75
[2022-11-11 06:00] VITALS: BP 121/74
[2022-11-11] MEDS: SINEMET 25-100 MG TAB PO SCH ×5 (06:07→18:14)
[2022-11-11] MEDS: LEVOTHYROXINE 100MCG TABLET (0.1MG) PO SCH (06:08)
[2022-11-11] MEDS: COMBIVENT RESPIMAT 100-20MCG INHALER 4GM INH SCH ×3 (07:19→20:54)
[2022-11-11 08:19] LABS: HEMATOCRIT 39.7 % (36.0-47.0); MEAN CORPUSCULAR HEMOGLOBIN 30.1 pg (27.0-33.0); MEAN CORPUSCULAR HGB CONC 32.7 g/dl (32.0-36.5); MEAN CORPUSCULAR VOLUME 91.9 fl (80.0-96.0); PLATELET COUNT, AUTOMATED 303 10^3/uL (150-450); RED BLOOD COUNT 4.32 10^6/uL (4.00-5.40); WHITE BLOOD COUNT 5.3 10^3/uL (4.0-10.0)
[2022-11-11 08:41] LABS: BLOOD UREA NITROGEN 13 MG/DL (9-23); CALCIUM LEVEL 9.1 MG/DL (8.3-10.6); CARBON DIOXIDE LEVEL 32 MMOL/L (20-31); CHLORIDE LEVEL 102 MMOL/L (98-107); CREATININE FOR GFR 0.69 MG/DL (0.55-1.30); GLOMERULAR FILTRATION RATE > 60.0 (>32); GLUCOSE, FASTING 107 MG/DL (74-106); POTASSIUM SERUM 3.8 MMOL/L (3.5-5.1); SODIUM LEVEL 139 MMOL/L (136-145)
[2022-11-11 08:45] LABS: ATYPICAL LYMPH 6 % (0-5); EOSINOPHILS 2 % (0-3); LYMPHOCYTES 32 % (16-44); MONOCYTES 3 % (0-5); NEUTROPHILS 57 % (28-66); PLATELET ESTIMATE NORMAL (NORMAL)
[2022-11-11 08:46] LABS: ANISOCYTOSIS 1+
[2022-11-11] MEDS: MAGNESIUM OXIDE 400MG TAB (MAG-OX) PO SCH ×2 (09:12→20:21)
[2022-11-11] MEDS: PANTOPRAZOLE 40MG TAB (PROTONIX) PO SCH (09:12)
[2022-11-11] MEDS: hydroCHLOROthiazide 12.5 MG CAPSULE PO SCH (09:13)
[2022-11-11] MEDS: OMEGA-3 1000MG CAPSULE PO SCH (09:13)
[2022-11-11] MEDS: VITAMIN D 1,000 INTERNATIONAL UNITS TABLET PO SCH (09:13)
[2022-11-11] MEDS: METOPROLOL TART 25 MG TABLET PO SCH ×2 (09:13→20:22)
[2022-11-11] MEDS: REMEDY PHYTOPLEX Z-GUARD PASTE 113GM TUBE (FROM STOREROOM PRODUCT) TOP SCH ×3 (09:14→20:22)
[2022-11-11 14:00] VITALS: BP 137/79
[2022-11-11] MEDS: RIVAROXABAN 20MG TAB (XARELTO) PO SCH (18:13)
[2022-11-11 20:00] VITALS: BP 128/66
[2022-11-11] MEDS: RAMELTEON 8 MG TAB (ROZEREM) PO PRN (20:20)
[2022-11-11] MEDS: ACETAMINOPHEN TAB 650MG DOSE (2X325MG) PO PRN (20:21)
[2022-11-12 06:00] VITALS: BP 118/56
[2022-11-12] MEDS: LEVOTHYROXINE 100MCG TABLET (0.1MG) PO SCH (06:07)
[2022-11-12] MEDS: SINEMET 25-100 MG TAB PO SCH ×5 (06:08→18:48)
[2022-11-12] MEDS: COMBIVENT RESPIMAT 100-20MCG INHALER 4GM INH SCH ×3 (08:00→20:00)
[2022-11-12 09:14] VITALS: BP 126/66
[2022-11-12] MEDS: OMEGA-3 1000MG CAPSULE PO SCH (09:16)
[2022-11-12] MEDS: MAGNESIUM OXIDE 400MG TAB (MAG-OX) PO SCH ×2 (09:17→20:32)
[2022-11-12] MEDS: METOPROLOL TART 25 MG TABLET PO SCH ×2 (09:17→20:33)
[2022-11-12] MEDS: hydroCHLOROthiazide 12.5 MG CAPSULE PO SCH (09:19)
[2022-11-12] MEDS: PANTOPRAZOLE 40MG TAB (PROTONIX) PO SCH (09:19)
[2022-11-12] MEDS: VITAMIN D 1,000 INTERNATIONAL UNITS TABLET PO SCH (09:19)
[2022-11-12] MEDS: REMEDY PHYTOPLEX Z-GUARD PASTE 113GM TUBE (FROM STOREROOM PRODUCT) TOP SCH ×3 (09:20→20:34)
[2022-11-12 14:00] VITALS: BP 110/60
[2022-11-12] MEDS: RIVAROXABAN 20MG TAB (XARELTO) PO SCH (18:49)
[2022-11-12 20:00] VITALS: BP 135/64
[2022-11-12] MEDS: RAMELTEON 8 MG TAB (ROZEREM) PO PRN (20:33)
[2022-11-12] MEDS: ACETAMINOPHEN TAB 650MG DOSE (2X325MG) PO PRN (20:33)
[2022-11-13 06:00] VITALS: BP 120/65
[2022-11-13] MEDS: LEVOTHYROXINE 100MCG TABLET (0.1MG) PO SCH (06:04)
[2022-11-13] MEDS: SINEMET 25-100 MG TAB PO SCH ×5 (06:05→19:05)
[2022-11-13 07:39] VITALS: BP 105/59
[2022-11-13] MEDS: VITAMIN D 1,000 INTERNATIONAL UNITS TABLET PO SCH (07:40)
[2022-11-13] MEDS: hydroCHLOROthiazide 12.5 MG CAPSULE PO SCH (07:40)
[2022-11-13] MEDS: MAGNESIUM OXIDE 400MG TAB (MAG-OX) PO SCH ×2 (07:41→20:57)
[2022-11-13] MEDS: OMEGA-3 1000MG CAPSULE PO SCH (07:41)
[2022-11-13] MEDS: PANTOPRAZOLE 40MG TAB (PROTONIX) PO SCH (07:41)
[2022-11-13] MEDS: METOPROLOL TART 25 MG TABLET PO SCH ×2 (07:42→20:56)
[2022-11-13] MEDS: REMEDY PHYTOPLEX Z-GUARD PASTE 113GM TUBE (FROM STOREROOM PRODUCT) TOP SCH ×3 (07:43→20:57)
[2022-11-13] MEDS: COMBIVENT RESPIMAT 100-20MCG INHALER 4GM INH SCH ×3 (08:00→20:00)
[2022-11-13 14:00] VITALS: BP 122/57
[2022-11-13] MEDS: RIVAROXABAN 20MG TAB (XARELTO) PO SCH (17:33)
[2022-11-13 20:00] VITALS: BP 129/80
[2022-11-13] MEDS: ACETAMINOPHEN TAB 650MG DOSE (2X325MG) PO PRN (20:57)
[2022-11-13] MEDS: RAMELTEON 8 MG TAB (ROZEREM) PO PRN (20:57)
[2022-11-14] MEDS: LEVOTHYROXINE 100MCG TABLET (0.1MG) PO SCH (05:38)
[2022-11-14 06:00] VITALS: BP 120/56
[2022-11-14] MEDS: SINEMET 25-100 MG TAB PO SCH ×5 (06:43→18:03)
[2022-11-14] MEDS: COMBIVENT RESPIMAT 100-20MCG INHALER 4GM INH SCH ×3 (07:41→19:34)
[2022-11-14] MEDS: VITAMIN D 1,000 INTERNATIONAL UNITS TABLET PO SCH (08:36)
[2022-11-14] MEDS: MAGNESIUM OXIDE 400MG TAB (MAG-OX) PO SCH ×2 (08:36→21:16)
[2022-11-14] MEDS: PANTOPRAZOLE 40MG TAB (PROTONIX) PO SCH (08:36)
[2022-11-14] MEDS: hydroCHLOROthiazide 12.5 MG CAPSULE PO SCH (08:36)
[2022-11-14] MEDS: METOPROLOL TART 25 MG TABLET PO SCH ×2 (08:37→21:17)
[2022-11-14] MEDS: OMEGA-3 1000MG CAPSULE PO SCH (08:38)
[2022-11-14] MEDS: REMEDY PHYTOPLEX Z-GUARD PASTE 113GM TUBE (FROM STOREROOM PRODUCT) TOP SCH ×3 (09:21→21:17)
[2022-11-14 10:23] LABS: BASO % 0.6 % (0.0-1.0); EOS # 0.1 10^3/uL (0.0-0.5); EOS % 1.5 % (0.0-3.0); HEMATOCRIT 39.3 % (36.0-47.0); HEMOGLOBIN 12.3 g/dl (12.0-15.5); LYMPH # 1.7 10^3/uL (1.5-5.0); LYMPH % 36.3 % (24.0-44.0); MEAN CORPUSCULAR HEMOGLOBIN 29.1 pg (27.0-33.0); MEAN CORPUSCULAR HGB CONC 31.3 g/dl (32.0-36.5); MEAN CORPUSCULAR VOLUME 93.1 fl (80.0-96.0); MONO # 0.4 10^3/uL (0.0-0.8); MONO % 7.5 % (2.0-8.0); NEUTROPHILS # 2.6 10^3/uL (1.5-8.5); NEUTROPHILS % 53.9 % (36.0-66.0); PLATELET COUNT, AUTOMATED 330 10^3/uL (150-450); RED BLOOD COUNT 4.22 10^6/uL (4.00-5.40); WHITE BLOOD COUNT 4.8 10^3/uL (4.0-10.0)
[2022-11-14 11:06] LABS: BLOOD UREA NITROGEN 15 MG/DL (9-23); CALCIUM LEVEL 8.9 MG/DL (8.3-10.6); CARBON DIOXIDE LEVEL 30 MMOL/L (20-31); CHLORIDE LEVEL 104 MMOL/L (98-107); CREATININE FOR GFR 0.72 MG/DL (0.55-1.30); GLOMERULAR FILTRATION RATE > 60.0 (>32); GLUCOSE, FASTING 89 MG/DL (74-106); POTASSIUM SERUM 4.3 MMOL/L (3.5-5.1); SODIUM LEVEL 140 MMOL/L (136-145)
[2022-11-14] MEDS: RIVAROXABAN 20MG TAB (XARELTO) PO SCH (18:03)
[2022-11-14 20:00] VITALS: BP 121/74
[2022-11-14] MEDS: RAMELTEON 8 MG TAB (ROZEREM) PO PRN (21:15)
[2022-11-14] MEDS: ACETAMINOPHEN TAB 650MG DOSE (2X325MG) PO PRN (21:16)
[2022-11-15] MEDS: LEVOTHYROXINE 100MCG TABLET (0.1MG) PO SCH (05:30)
[2022-11-15 06:00] VITALS: BP 109/65
[2022-11-15] MEDS: SINEMET 25-100 MG TAB PO SCH ×5 (06:32→20:30)
[2022-11-15] MEDS: COMBIVENT RESPIMAT 100-20MCG INHALER 4GM INH SCH ×3 (07:56→20:00)
[2022-11-15] MEDS: MAGNESIUM OXIDE 400MG TAB (MAG-OX) PO SCH ×2 (08:56→20:30)
[2022-11-15] MEDS: PANTOPRAZOLE 40MG TAB (PROTONIX) PO SCH (08:56)
[2022-11-15] MEDS: OMEGA-3 1000MG CAPSULE PO SCH (08:57)
[2022-11-15] MEDS: VITAMIN D 1,000 INTERNATIONAL UNITS TABLET PO SCH (08:58)
[2022-11-15] MEDS: REMEDY PHYTOPLEX Z-GUARD PASTE 113GM TUBE (FROM STOREROOM PRODUCT) TOP SCH ×3 (08:59→20:31)
[2022-11-15] MEDS: ACETAMINOPHEN 650MG ER TAB (TYLENOL ARTHRITIS) PO SCH ×3 (09:00→20:30)
[2022-11-15] MEDS: hydroCHLOROthiazide 12.5 MG CAPSULE PO SCH (09:04)
[2022-11-15] MEDS: METOPROLOL TART 25 MG TABLET PO SCH ×2 (09:04→20:30)
[2022-11-15 14:00] VITALS: BP 130/62
[2022-11-15] MEDS: RIVAROXABAN 20MG TAB (XARELTO) PO SCH (17:12)
[2022-11-15] MEDS: DICLOFENAC EPOLAMINE 1.3% PATCH TOP SCH ×2 (17:12→20:31)
[2022-11-15 20:00] VITALS: BP 125/80
[2022-11-16 06:00] VITALS: BP 114/63
[2022-11-16 06:30] LABS: BASO % 0.6 % (0.0-1.0); EOS # 0.1 10^3/uL (0.0-0.5); EOS % 1.9 % (0.0-3.0); HEMATOCRIT 37.4 % (36.0-47.0); LYMPH # 1.9 10^3/uL (1.5-5.0); LYMPH % 39.5 % (24.0-44.0); MEAN CORPUSCULAR HEMOGLOBIN 29.4 pg (27.0-33.0); MEAN CORPUSCULAR HGB CONC 32.1 g/dl (32.0-36.5); MEAN CORPUSCULAR VOLUME 91.7 fl (80.0-96.0); MONO # 0.5 10^3/uL (0.0-0.8); MONO % 9.7 % (2.0-8.0); NEUTROPHILS # 2.3 10^3/uL (1.5-8.5); NEUTROPHILS % 48.1 % (36.0-66.0); PLATELET COUNT, AUTOMATED 310 10^3/uL (150-450); RED BLOOD COUNT 4.08 10^6/uL (4.00-5.40); WHITE BLOOD COUNT 4.7 10^3/uL (4.0-10.0)
[2022-11-16] MEDS: LEVOTHYROXINE 100MCG TABLET (0.1MG) PO SCH (06:43)
[2022-11-16] MEDS: SINEMET 25-100 MG TAB PO SCH ×5 (06:43→18:18)
[2022-11-16 06:54] LABS: BLOOD UREA NITROGEN 13 MG/DL (9-23); CALCIUM LEVEL 8.7 MG/DL (8.3-10.6); CARBON DIOXIDE LEVEL 28 MMOL/L (20-31); CHLORIDE LEVEL 104 MMOL/L (98-107); GLOMERULAR FILTRATION RATE > 60.0 (>32); GLUCOSE, FASTING 96 MG/DL (74-106); SODIUM LEVEL 139 MMOL/L (136-145)
[2022-11-16] MEDS: OMEGA-3 1000MG CAPSULE PO SCH (07:11)
[2022-11-16] MEDS: PANTOPRAZOLE 40MG TAB (PROTONIX) PO SCH (07:11)
[2022-11-16] MEDS: ACETAMINOPHEN 650MG ER TAB (TYLENOL ARTHRITIS) PO SCH ×3 (07:11→21:40)
[2022-11-16] MEDS: METOPROLOL TART 25 MG TABLET PO SCH ×2 (07:12→21:46)
[2022-11-16] MEDS: MAGNESIUM OXIDE 400MG TAB (MAG-OX) PO SCH ×2 (07:12→21:42)
[2022-11-16] MEDS: VITAMIN D 1,000 INTERNATIONAL UNITS TABLET PO SCH (07:12)
[2022-11-16] MEDS: REMEDY PHYTOPLEX Z-GUARD PASTE 113GM TUBE (FROM STOREROOM PRODUCT) TOP SCH ×3 (07:13→21:48)
[2022-11-16] MEDS: DICLOFENAC EPOLAMINE 1.3% PATCH TOP SCH ×2 (07:13→21:40)
[2022-11-16] MEDS: hydroCHLOROthiazide 12.5 MG CAPSULE PO SCH (09:00)
[2022-11-16] MEDS: COMBIVENT RESPIMAT 100-20MCG INHALER 4GM INH SCH ×3 (09:03→21:34)
[2022-11-16 13:01] VITALS: BP 109/67
[2022-11-16 14:00] VITALS: BP 126/58
[2022-11-16] MEDS: RIVAROXABAN 20MG TAB (XARELTO) PO SCH (18:18)
[2022-11-16 20:00] VITALS: BP 126/65
[2022-11-17] MEDS: LEVOTHYROXINE 100MCG TABLET (0.1MG) PO SCH (05:00)
[2022-11-17 06:00] VITALS: BP 129/66
[2022-11-17] MEDS: SINEMET 25-100 MG TAB PO SCH ×5 (06:48→18:17)
[2022-11-17] MEDS: OMEGA-3 1000MG CAPSULE PO SCH (08:31)
[2022-11-17] MEDS: hydroCHLOROthiazide 12.5 MG CAPSULE PO SCH (08:31)
[2022-11-17] MEDS: ACETAMINOPHEN 650MG ER TAB (TYLENOL ARTHRITIS) PO SCH ×3 (08:31→20:28)
[2022-11-17] MEDS: VITAMIN D 1,000 INTERNATIONAL UNITS TABLET PO SCH (08:31)
[2022-11-17] MEDS: MAGNESIUM OXIDE 400MG TAB (MAG-OX) PO SCH ×2 (08:31→20:29)
[2022-11-17] MEDS: PANTOPRAZOLE 40MG TAB (PROTONIX) PO SCH (08:31)
[2022-11-17] MEDS: METOPROLOL TART 25 MG TABLET PO SCH ×2 (08:31→20:29)
[2022-11-17] MEDS: REMEDY PHYTOPLEX Z-GUARD PASTE 113GM TUBE (FROM STOREROOM PRODUCT) TOP SCH ×3 (08:32→20:31)
[2022-11-17] MEDS: DICLOFENAC EPOLAMINE 1.3% PATCH TOP SCH ×2 (08:32→20:28)
[2022-11-17] MEDS: COMBIVENT RESPIMAT 100-20MCG INHALER 4GM INH SCH ×3 (09:24→21:34)
[2022-11-17 14:00] VITALS: BP 135/60
[2022-11-17] MEDS: RIVAROXABAN 20MG TAB (XARELTO) PO SCH (18:17)
[2022-11-17 20:00] VITALS: BP 126/75
[2022-11-18] MEDS: LEVOTHYROXINE 100MCG TABLET (0.1MG) PO SCH (05:36)
[2022-11-18 06:00] VITALS: BP 129/72
[2022-11-18 06:58] LABS: BASO % 0.6 % (0.0-1.0); EOS # 0.1 10^3/uL (0.0-0.5); EOS % 2.3 % (0.0-3.0); HEMATOCRIT 38.1 % (36.0-47.0); LYMPH # 2.1 10^3/uL (1.5-5.0); MEAN CORPUSCULAR HEMOGLOBIN 29.6 pg (27.0-33.0); MEAN CORPUSCULAR HGB CONC 31.5 g/dl (32.0-36.5); MEAN CORPUSCULAR VOLUME 93.8 fl (80.0-96.0); MONO # 0.5 10^3/uL (0.0-0.8); MONO % 10.7 % (2.0-8.0); NEUTROPHILS # 2.1 10^3/uL (1.5-8.5); NEUTROPHILS % 42.2 % (36.0-66.0); PLATELET COUNT, AUTOMATED 331 10^3/uL (150-450); RED BLOOD COUNT 4.06 10^6/uL (4.00-5.40); WHITE BLOOD COUNT 4.9 10^3/uL (4.0-10.0)
[2022-11-18] MEDS: SINEMET 25-100 MG TAB PO SCH ×5 (07:03→18:49)
[2022-11-18 07:20] LABS: BLOOD UREA NITROGEN 13 MG/DL (9-23); CALCIUM LEVEL 8.9 MG/DL (8.3-10.6); CARBON DIOXIDE LEVEL 29 MMOL/L (20-31); CHLORIDE LEVEL 105 MMOL/L (98-107); CREATININE FOR GFR 0.79 MG/DL (0.55-1.30); GLOMERULAR FILTRATION RATE > 60.0 (>32); GLUCOSE, FASTING 93 MG/DL (74-106); POTASSIUM SERUM 4.4 MMOL/L (3.5-5.1); SODIUM LEVEL 140 MMOL/L (136-145)
[2022-11-18] MEDS: COMBIVENT RESPIMAT 100-20MCG INHALER 4GM INH SCH ×3 (07:26→20:00)
[2022-11-18] MEDS: REMEDY PHYTOPLEX Z-GUARD PASTE 113GM TUBE (FROM STOREROOM PRODUCT) TOP SCH ×3 (09:00→21:00)
[2022-11-18] MEDS: ACETAMINOPHEN 650MG ER TAB (TYLENOL ARTHRITIS) PO SCH ×3 (09:25→21:46)
[2022-11-18] MEDS: PANTOPRAZOLE 40MG TAB (PROTONIX) PO SCH (09:25)
[2022-11-18] MEDS: VITAMIN D 1,000 INTERNATIONAL UNITS TABLET PO SCH (09:25)
[2022-11-18] MEDS: OMEGA-3 1000MG CAPSULE PO SCH (09:25)
[2022-11-18] MEDS: MAGNESIUM OXIDE 400MG TAB (MAG-OX) PO SCH ×2 (09:25→21:46)
[2022-11-18] MEDS: METOPROLOL TART 25 MG TABLET PO SCH ×2 (09:26→21:46)
[2022-11-18] MEDS: DICLOFENAC EPOLAMINE 1.3% PATCH TOP SCH ×2 (09:27→21:47)
[2022-11-18 14:00] VITALS: BP 122/73
[2022-11-18] MEDS: RIVAROXABAN 20MG TAB (XARELTO) PO SCH (18:49)
[2022-11-18 20:00] VITALS: BP 150/67
[2022-11-19 06:00] VITALS: BP 112/58
[2022-11-19] MEDS: LEVOTHYROXINE 100MCG TABLET (0.1MG) PO SCH (06:11)
[2022-11-19] MEDS: SINEMET 25-100 MG TAB PO SCH ×5 (06:12→18:36)
[2022-11-19] MEDS: COMBIVENT RESPIMAT 100-20MCG INHALER 4GM INH SCH ×3 (07:00→20:10)
[2022-11-19] MEDS: REMEDY PHYTOPLEX Z-GUARD PASTE 113GM TUBE (FROM STOREROOM PRODUCT) TOP SCH ×3 (09:00→20:32)
[2022-11-19] MEDS: PANTOPRAZOLE 40MG TAB (PROTONIX) PO SCH (09:32)
[2022-11-19] MEDS: ACETAMINOPHEN 650MG ER TAB (TYLENOL ARTHRITIS) PO SCH ×3 (09:32→20:30)
[2022-11-19] MEDS: MAGNESIUM OXIDE 400MG TAB (MAG-OX) PO SCH ×2 (09:32→20:30)
[2022-11-19] MEDS: VITAMIN D 1,000 INTERNATIONAL UNITS TABLET PO SCH (09:32)
[2022-11-19] MEDS: OMEGA-3 1000MG CAPSULE PO SCH (09:32)
[2022-11-19] MEDS: METOPROLOL TART 25 MG TABLET PO SCH ×2 (09:34→20:31)
[2022-11-19] MEDS: DICLOFENAC EPOLAMINE 1.3% PATCH TOP SCH ×2 (09:34→20:29)
[2022-11-19 14:07] VITALS: BP 120/68
[2022-11-19] MEDS: RIVAROXABAN 20MG TAB (XARELTO) PO SCH (18:36)
[2022-11-19 20:00] VITALS: BP 119/57
[2022-11-20 06:00] VITALS: BP 135/71
[2022-11-20] MEDS: LEVOTHYROXINE 100MCG TABLET (0.1MG) PO SCH (06:16)
[2022-11-20] MEDS: SINEMET 25-100 MG TAB PO SCH ×5 (06:16→18:40)
[2022-11-20] MEDS: COMBIVENT RESPIMAT 100-20MCG INHALER 4GM INH SCH ×3 (07:38→20:59)
[2022-11-20] MEDS: OMEGA-3 1000MG CAPSULE PO SCH (09:00)
[2022-11-20] MEDS: DICLOFENAC EPOLAMINE 1.3% PATCH TOP SCH ×2 (09:00→20:18)
[2022-11-20] MEDS: REMEDY PHYTOPLEX Z-GUARD PASTE 113GM TUBE (FROM STOREROOM PRODUCT) TOP SCH ×3 (09:00→20:18)
[2022-11-20] MEDS: METOPROLOL TART 25 MG TABLET PO SCH ×2 (09:01→20:17)
[2022-11-20] MEDS: ACETAMINOPHEN 650MG ER TAB (TYLENOL ARTHRITIS) PO SCH ×3 (09:01→20:17)
[2022-11-20] MEDS: VITAMIN D 1,000 INTERNATIONAL UNITS TABLET PO SCH (09:01)
[2022-11-20] MEDS: MAGNESIUM OXIDE 400MG TAB (MAG-OX) PO SCH ×2 (09:01→20:17)
[2022-11-20] MEDS: PANTOPRAZOLE 40MG TAB (PROTONIX) PO SCH (09:01)
[2022-11-20 14:00] VITALS: BP 119/60
[2022-11-20] MEDS: RIVAROXABAN 20MG TAB (XARELTO) PO SCH (18:40)
[2022-11-20 20:00] VITALS: BP 117/63
[2022-11-21 06:00] VITALS: BP 119/60
[2022-11-21] MEDS: SINEMET 25-100 MG TAB PO SCH ×5 (06:30→20:14)
[2022-11-21] MEDS: LEVOTHYROXINE 100MCG TABLET (0.1MG) PO SCH (06:30)
[2022-11-21 06:54] LABS: BASO # 0.1 10^3/uL (0.0-0.2); BASO % 0.8 % (0.0-1.0); EOS # 0.1 10^3/uL (0.0-0.5); EOS % 1.9 % (0.0-3.0); HEMATOCRIT 37.9 % (36.0-47.0); HEMOGLOBIN 12.2 g/dl (12.0-15.5); LYMPH # 2.4 10^3/uL (1.5-5.0); LYMPH % 38.7 % (24.0-44.0); MEAN CORPUSCULAR HEMOGLOBIN 29.8 pg (27.0-33.0); MEAN CORPUSCULAR HGB CONC 32.2 g/dl (32.0-36.5); MEAN CORPUSCULAR VOLUME 92.4 fl (80.0-96.0); MONO # 0.5 10^3/uL (0.0-0.8); MONO % 7.6 % (2.0-8.0); NEUTROPHILS # 3.2 10^3/uL (1.5-8.5); NEUTROPHILS % 50.7 % (36.0-66.0); PLATELET COUNT, AUTOMATED 358 10^3/uL (150-450); WHITE BLOOD COUNT 6.2 10^3/uL (4.0-10.0)
[2022-11-21 07:15] LABS: BLOOD UREA NITROGEN 14 MG/DL (9-23); CALCIUM LEVEL 8.6 MG/DL (8.3-10.6); CARBON DIOXIDE LEVEL 28 MMOL/L (20-31); CHLORIDE LEVEL 104 MMOL/L (98-107); CREATININE FOR GFR 0.78 MG/DL (0.55-1.30); GLOMERULAR FILTRATION RATE > 60.0 (>32); GLUCOSE, FASTING 97 MG/DL (74-106); POTASSIUM SERUM 3.9 MMOL/L (3.5-5.1); SODIUM LEVEL 136 MMOL/L (136-145)
[2022-11-21] MEDS: COMBIVENT RESPIMAT 100-20MCG INHALER 4GM INH SCH ×3 (07:42→21:51)
[2022-11-21] MEDS: REMEDY PHYTOPLEX Z-GUARD PASTE 113GM TUBE (FROM STOREROOM PRODUCT) TOP SCH ×3 (09:00→20:18)
[2022-11-21] MEDS: OMEGA-3 1000MG CAPSULE PO SCH (09:30)
[2022-11-21] MEDS: VITAMIN D 1,000 INTERNATIONAL UNITS TABLET PO SCH (09:30)
[2022-11-21] MEDS: ACETAMINOPHEN 650MG ER TAB (TYLENOL ARTHRITIS) PO SCH ×3 (09:30→20:14)
[2022-11-21] MEDS: PANTOPRAZOLE 40MG TAB (PROTONIX) PO SCH (09:31)
[2022-11-21] MEDS: METOPROLOL TART 25 MG TABLET PO SCH ×2 (09:31→20:15)
[2022-11-21] MEDS: MAGNESIUM OXIDE 400MG TAB (MAG-OX) PO SCH ×2 (09:32→20:16)
[2022-11-21] MEDS: DICLOFENAC EPOLAMINE 1.3% PATCH TOP SCH ×2 (09:34→20:14)
[2022-11-21 14:00] VITALS: BP 114/66
[2022-11-21] MEDS: RIVAROXABAN 20MG TAB (XARELTO) PO SCH (17:56)
[2022-11-21 20:00] VITALS: BP 114/77
[2022-11-22] MEDS: LEVOTHYROXINE 100MCG TABLET (0.1MG) PO SCH (05:32)
[2022-11-22 06:00] VITALS: BP 121/63
[2022-11-22] MEDS: SINEMET 25-100 MG TAB PO SCH ×5 (06:45→19:52)
[2022-11-22] MEDS: COMBIVENT RESPIMAT 100-20MCG INHALER 4GM INH SCH ×3 (08:00→21:12)
[2022-11-22] MEDS: REMEDY PHYTOPLEX Z-GUARD PASTE 113GM TUBE (FROM STOREROOM PRODUCT) TOP SCH ×3 (08:58→20:49)
[2022-11-22] MEDS: VITAMIN D 1,000 INTERNATIONAL UNITS TABLET PO SCH (09:17)
[2022-11-22] MEDS: DICLOFENAC EPOLAMINE 1.3% PATCH TOP SCH ×2 (09:17→20:47)
[2022-11-22] MEDS: OMEGA-3 1000MG CAPSULE PO SCH (09:17)
[2022-11-22] MEDS: MAGNESIUM OXIDE 400MG TAB (MAG-OX) PO SCH ×2 (09:18→20:48)
[2022-11-22] MEDS: ACETAMINOPHEN 650MG ER TAB (TYLENOL ARTHRITIS) PO SCH ×3 (09:18→20:47)
[2022-11-22] MEDS: PANTOPRAZOLE 40MG TAB (PROTONIX) PO SCH (09:18)
[2022-11-22] MEDS: METOPROLOL TART 25 MG TABLET PO SCH ×2 (09:18→20:48)
[2022-11-22 14:00] VITALS: BP 127/76
[2022-11-22] MEDS: RIVAROXABAN 20MG TAB (XARELTO) PO SCH (17:27)
[2022-11-22 20:00] VITALS: BP 126/70
[2022-11-22] MEDS: RAMELTEON 8 MG TAB (ROZEREM) PO PRN (20:47)
[2022-11-23] MEDS: LEVOTHYROXINE 100MCG TABLET (0.1MG) PO SCH (05:50)
[2022-11-23 06:00] VITALS: BP 110/68
[2022-11-23] MEDS: SINEMET 25-100 MG TAB PO SCH ×2 (06:44→09:04)
[2022-11-23] MEDS: COMBIVENT RESPIMAT 100-20MCG INHALER 4GM INH SCH (07:10)
[2022-11-23] MEDS: REMEDY PHYTOPLEX Z-GUARD PASTE 113GM TUBE (FROM STOREROOM PRODUCT) TOP SCH (09:00)
[2022-11-23] MEDS: DICLOFENAC EPOLAMINE 1.3% PATCH TOP SCH (09:02)
[2022-11-23] MEDS: METOPROLOL TART 25 MG TABLET PO SCH (09:04)
[2022-11-23 09:05] VITALS: BP 127/65
[2022-11-23] MEDS: VITAMIN D 1,000 INTERNATIONAL UNITS TABLET PO SCH (09:05)
[2022-11-23] MEDS: PANTOPRAZOLE 40MG TAB (PROTONIX) PO SCH (09:05)
[2022-11-23] MEDS: OMEGA-3 1000MG CAPSULE PO SCH (09:05)
[2022-11-23] MEDS: MAGNESIUM OXIDE 400MG TAB (MAG-OX) PO SCH (09:05)
[2022-11-23] MEDS: ACETAMINOPHEN 650MG ER TAB (TYLENOL ARTHRITIS) PO SCH (09:06)
[2022-11-23] MEDS ORDERED: METO50TA7 PO (10:32)
[2022-11-23] MEDS ORDERED: SYNT100T PO (10:32)
[2022-11-23] MEDS ORDERED: DILT180C95 PO (10:32)
[2022-11-23] MEDS ORDERED: CARB25TA9 PO (10:32)
[2022-11-23] MEDS ORDERED: XARE20TA PO (10:32)
[2022-11-23] MEDS ORDERED: HYDR-3490 PO (10:32)
[2022-11-23] MEDS ORDERED: COMBAER6 INH (10:32)
[2022-11-23] MEDS ORDERED: OMEP40CA4 PO (10:32)
== END 2022-11-23 12:00 | disposition home health service (06) | DRG 57 ==
LOC: M PM&R 16:18 → EEVIPCON 16:18
PROVIDERS: ADMIT Physical Medicine & Rehabilitation; ATTEND Physical Medicine & Rehabilitation
DX: G20 Parkinson's disease (principal); I50.32 Chronic diastolic (congestive) heart failure; R26.89 Other abnormalities of gait and mobility; I48.91 Unspecified atrial fibrillation; I11.0 Hypertensive heart disease with heart failure; M48.061 Spinal stenosis, lumbar region without neurogenic claudication; M51.16 Intervertebral disc disorders with radiculopathy, lumbar region; R13.10 Dysphagia, unspecified; E78.5 Hyperlipidemia, unspecified; E03.9 Hypothyroidism, unspecified; R54 Age-related physical debility; K21.9 Gastro-esophageal reflux disease without esophagitis; E83.51 Hypocalcemia; M25.561 Pain in right knee; E87.8 Other disorders of electrolyte and fluid balance, not elsewhere classified; K52.9 Noninfective gastroenteritis and colitis, unspecified; Z74.09 Other reduced mobility; Z74.1 Need for assistance with personal care; Z90.49 Acquired absence of other specified parts of digestive tract; Z87.891 Personal history of nicotine dependence; G62.89 Other specified polyneuropathies; Z79.890 Hormone replacement therapy; Z79.01 Long term (current) use of anticoagulants; Z79.899 Other long term (current) drug therapy; Z88.6 Allergy status to analgesic agent; Z88.8 Allergy status to other drugs, medicaments and biological substances; Z91.048 Other nonmedicinal substance allergy status; Z95.0 Presence of cardiac pacemaker; Z66 Do not resuscitate; S63.92XA Sprain of unspecified part of left wrist and hand, initial encounter; W01.0XXA Fall on same level from slipping, tripping and stumbling without subsequent striking against object, initial encounter; Y92.098 Other place in other non-institutional residence as the place of occurrence of the external cause; Y93.01 Activity, walking, marching and hiking

== ENCOUNTER → 2023-02-10 | Outpatient (CLI) | payer MEDICARE, OTHER, MEDICAID ==
[~2023-02-10] MED LIST changes: +CALC500C16 PO; +COMBAER6 INH
== END ==
LOC: M ADAMS 11:29
PROVIDERS: ATTEND Physician Assistant
DX: M17.0 Bilateral primary osteoarthritis of knee (principal)

== ENCOUNTER → 2023-03-15 | Outpatient (REF) | payer MEDICARE, MEDICAID, OTHER ==
[2023-03-15 16:30] LABS: HEMATOCRIT 39.6 % (36.0-47.0); HEMOGLOBIN 12.6 g/dl (12.0-15.5); MEAN CORPUSCULAR HEMOGLOBIN 28.9 pg (27.0-33.0); MEAN CORPUSCULAR HGB CONC 31.8 g/dl (32.0-36.5); MEAN CORPUSCULAR VOLUME 90.8 fl (80.0-96.0); PLATELET COUNT, AUTOMATED 328 10^3/uL (150-450); RED BLOOD COUNT 4.36 10^6/uL (4.00-5.40); WHITE BLOOD COUNT 7.5 10^3/uL (4.0-10.0)
[2023-03-15 17:03] LABS: ALBUMIN 3.5 G/DL (3.2-5.2); ALKALINE PHOSPHATASE 70 U/L (46-116); ALT/SGPT < 9 U/L (7.0-40); AST/SGOT < 8 U/L (<34); BILIRUBIN,TOTAL 0.3 MG/DL (0.3-1.2); BLOOD UREA NITROGEN 17 MG/DL (9-23); CALCIUM LEVEL 9.3 MG/DL (8.3-10.6); CARBON DIOXIDE LEVEL 27 MMOL/L (20-31); CHLORIDE LEVEL 102 MMOL/L (98-107); CREATININE FOR GFR 0.69 MG/DL (0.55-1.30); GLOMERULAR FILTRATION RATE > 60.0 (>32); GLUCOSE, FASTING 106 MG/DL (74-106); MAGNESIUM LEVEL 1.7 MG/DL (1.8-2.4); SODIUM LEVEL 140 MMOL/L (136-145); THYROID STIMULATING HORMONE 5.138 uIU/ML (0.55-4.78)
[2023-03-15 17:04] LABS: FREE T4 1.25 NG/DL (0.89-1.76)
== END ==
LOC: M SFHCADAM 12:13
PROVIDERS: ATTEND Family Medicine
DX: I50.30 Unspecified diastolic (congestive) heart failure (principal); E03.9 Hypothyroidism, unspecified; I11.0 Hypertensive heart disease with heart failure

== ENCOUNTER → 2023-06-07 | Outpatient (REF) | payer MEDICARE, MEDICAID, OTHER ==
[~2023-06-07] MED LIST changes: -COZA100T3 PO; +LOSA-530 PO
[2023-06-07 13:35] LABS: HEMATOCRIT 38.8 % (36.0-47.0); HEMOGLOBIN 12.3 g/dl (12.0-15.5); MEAN CORPUSCULAR HEMOGLOBIN 28.8 pg (27.0-33.0); MEAN CORPUSCULAR HGB CONC 31.7 g/dl (32.0-36.5); MEAN CORPUSCULAR VOLUME 90.9 fl (80.0-96.0); PLATELET COUNT, AUTOMATED 330 10^3/uL (150-450); RED BLOOD COUNT 4.27 10^6/uL (4.00-5.40); WHITE BLOOD COUNT 5.5 10^3/uL (4.0-10.0)
[2023-06-07 13:50] LABS: ALBUMIN 3.4 G/DL (3.2-5.2); ALKALINE PHOSPHATASE 64 U/L (46-116); ALT/SGPT < 9 U/L (7.0-40); AST/SGOT 13 U/L (<34); BILIRUBIN,TOTAL 0.3 MG/DL (0.3-1.2); BLOOD UREA NITROGEN 10 MG/DL (9-23); CALCIUM LEVEL 8.8 MG/DL (8.3-10.6); CARBON DIOXIDE LEVEL 29 MMOL/L (20-31); CHLORIDE LEVEL 104 MMOL/L (98-107); CREATININE FOR GFR 0.68 MG/DL (0.55-1.30); FREE T4 1.07 NG/DL (0.89-1.76); GLOMERULAR FILTRATION RATE > 60.0 (>32); GLUCOSE, FASTING 101 MG/DL (74-106); MAGNESIUM LEVEL 1.6 MG/DL (1.8-2.4); POTASSIUM SERUM 3.4 MMOL/L (3.5-5.1); SODIUM LEVEL 141 MMOL/L (136-145); THYROID STIMULATING HORMONE 2.491 uIU/ML (0.55-4.78); TOTAL PROTEIN 6.8 G/DL (5.7-8.2)
== END ==
LOC: M SFHCADAM 09:22
PROVIDERS: ATTEND Family Medicine
DX: I50.30 Unspecified diastolic (congestive) heart failure (principal); E03.9 Hypothyroidism, unspecified

== ENCOUNTER 2023-06-21 13:15 | Inpatient (IN) | payer MEDICARE, OTHER, MEDICAID ==
[~2023-06-21] VITALS: Ht 160 cm; Wt 110.2 kg
[2023-06-21 15:26] LABS: BASO % 0.4 % (0.0-1.0); EOS # 0.1 10^3/uL (0.0-0.5); EOS % 1.2 % (0.0-3.0); HEMATOCRIT 37.5 % (36.0-47.0); HEMOGLOBIN 11.9 g/dl (12.0-15.5); LYMPH # 1.9 10^3/uL (1.5-5.0); MEAN CORPUSCULAR HEMOGLOBIN 28.5 pg (27.0-33.0); MEAN CORPUSCULAR HGB CONC 31.7 g/dl (32.0-36.5); MEAN CORPUSCULAR VOLUME 89.9 fl (80.0-96.0); MONO # 0.9 10^3/uL (0.0-0.8); MONO % 8.1 % (2.0-8.0); NEUTROPHILS # 8.1 10^3/uL (1.5-8.5); PLATELET COUNT, AUTOMATED 321 10^3/uL (150-450); RED BLOOD COUNT 4.17 10^6/uL (4.00-5.40)
[2023-06-21 15:37] LABS: ALBUMIN 3.4 G/DL (3.2-5.2); ALKALINE PHOSPHATASE 67 U/L (46-116); ALT/SGPT < 9 U/L (7.0-40); AST/SGOT 37 U/L (<34); BILIRUBIN,DIRECT 0.1 MG/DL (<0.4); BILIRUBIN,TOTAL 0.4 MG/DL (0.3-1.2); BLOOD UREA NITROGEN 10 MG/DL (9-23); CALCIUM LEVEL 8.6 MG/DL (8.3-10.6); CARBON DIOXIDE LEVEL 26 MMOL/L (20-31); CHLORIDE LEVEL 103 MMOL/L (98-107); CREATININE FOR GFR 0.65 MG/DL (0.55-1.30); GLOMERULAR FILTRATION RATE > 60.0 (>32); GLUCOSE, FASTING 103 MG/DL (74-106); MAGNESIUM LEVEL 1.9 MG/DL (1.8-2.4); POTASSIUM SERUM 4.4 MMOL/L (3.5-5.1); SODIUM LEVEL 139 MMOL/L (136-145); TOTAL PROTEIN 7.2 G/DL (5.7-8.2)
[2023-06-21] MEDS ORDERED: LEVALBUTEROL 1.25MG 0.5ML CONCENTRATE NEB INH PRN (17:05)
[2023-06-21] MEDS ORDERED: MED REC IN PROGRESS XX SCH (17:15)
[2023-06-21 17:32] LABS: PROCALCITONIN <0.04 ng/ml
[2023-06-21 17:36] LABS: CK-MB VALUE MASS < 1.0 NG/ML (<3.6); CPK CREATINE PHOSPHOKINASE 71 U/L (34-145)
[2023-06-21 17:50] VITALS: BP 115/65; TEMP 98.8; O2SAT 96
[2023-06-21] MEDS: FUROSEMIDE 40MG/4ML VIAL IV SCH (18:00)
[2023-06-21] MEDS: cefTRIAXone SOD 2 GM in D5W MINI-BAG PLUS 50 ML IV SCH (18:03)
[2023-06-21] MEDS: LACTOBACILLUS ACIDOPHILUS CAP (BACID) PO SCH (18:03)
[2023-06-21 19:28] VITALS: BP 107/68; TEMP 98.5; O2SAT 90
[2023-06-21] MEDS ORDERED: METO1TAB87 PO (19:44)
[2023-06-21] MEDS ORDERED: RYTA1CAP PO (19:46)
[2023-06-21] MEDS ORDERED: FURO20TA2 PO (19:47)
[2023-06-21] MEDS ORDERED: POTA595T16 PO (19:49)
[2023-06-21] MEDS ORDERED: COMBIVENT RESPIMAT 100-20MCG INHALER 4GM INH SCH (20:00)
[2023-06-21] MEDS ORDERED: DILT180C78 PO (20:05)
[2023-06-21] MEDS ORDERED: LEVO100C PO (20:07)
[2023-06-21] MEDS ORDERED: OMEP40CA4 PO (20:08)
[2023-06-21] MEDS ORDERED: XARE20TA PO (20:09)
[2023-06-21] MEDS ORDERED: HOME MED LIST COMPLETE! XX SCH (20:15)
[2023-06-21] MEDS ORDERED: POLYVINYL ALCOHOL OPHTH SOLN 15ML (LIQUITEARS) OU PRN (20:25)
[2023-06-21] MEDS: DOXYCYCLINE HYCLATE 100 MG in D5W MINI-BAG PLUS 100 ML IV SCH (20:27)
[2023-06-21] MEDS ORDERED: ACETAMINOPHEN TAB 650MG DOSE (2X325MG) PO PRN (20:35)
[2023-06-21] MEDS ORDERED: RAMELTEON 8 MG TAB (ROZEREM) PO PRN (20:35)
[2023-06-21] MEDS: OMEPRAZOLE 20MG CAP PO SCH (20:57)
[2023-06-21] MEDS: RIVAROXABAN 20MG TAB (XARELTO) PO SCH (20:57)
[2023-06-21] MEDS: SINEMET 25-100 MG TAB PO SCH (20:57)
[2023-06-21] MEDS: METOPROLOL TART 25 MG TABLET PO SCH (20:58)
[2023-06-21] MEDS: dilTIAZem **CD** 180MG CAP PO SCH (20:58)
[2023-06-21] MEDS: LEVALBUTEROL 1.25MG 0.5ML CONCENTRATE NEB INH SCH (21:20)
[2023-06-22] VITALS (7 sets, daily range): BP systolic 99–136; BP diastolic 51–63; TEMP 97.1–98.7; O2SAT 88–99
[2023-06-22 00:58] LABS: IONIZED CALCIUM 4.4 MG/DL (4.5-5.3)
[2023-06-22 01:26] LABS: BLOOD UREA NITROGEN 11 MG/DL (9-23); CALCIUM LEVEL 8.2 MG/DL (8.3-10.6); CARBON DIOXIDE LEVEL 28 MMOL/L (20-31); CHLORIDE LEVEL 104 MMOL/L (98-107); CREATININE FOR GFR 0.66 MG/DL (0.55-1.30); GLOMERULAR FILTRATION RATE > 60.0 (>32); GLUCOSE, FASTING 100 MG/DL (74-106); MAGNESIUM LEVEL 1.9 MG/DL (1.8-2.4); POTASSIUM SERUM 3.4 MMOL/L (3.5-5.1); SODIUM LEVEL 139 MMOL/L (136-145)
[2023-06-22] MEDS ORDERED: POTASSIUM CHLORIDE 10% LIQ 20MEQ/15ML UDC PO ONE (02:00)
[2023-06-22] MEDS: LEVOTHYROXINE 100MCG TABLET (0.1MG) PO SCH (05:11)
[2023-06-22] MEDS: SINEMET 25-100 MG TAB PO SCH ×5 (05:11→21:14)
[2023-06-22] MEDS: FUROSEMIDE 40MG/4ML VIAL IV SCH ×2 (05:11)
[2023-06-22 06:07] LABS: IONIZED CALCIUM 4.3 MG/DL (4.5-5.3)
[2023-06-22 06:39] LABS: BLOOD UREA NITROGEN 11 MG/DL (9-23); CALCIUM LEVEL 8.2 MG/DL (8.3-10.6); CARBON DIOXIDE LEVEL 26 MMOL/L (20-31); CHLORIDE LEVEL 107 MMOL/L (98-107); CREATININE FOR GFR 0.67 MG/DL (0.55-1.30); GLOMERULAR FILTRATION RATE > 60.0 (>32); GLUCOSE, FASTING 93 MG/DL (74-106); MAGNESIUM LEVEL 1.9 MG/DL (1.8-2.4); POTASSIUM SERUM 4.4 MMOL/L (3.5-5.1); SODIUM LEVEL 142 MMOL/L (136-145)
[2023-06-22] MEDS: LEVALBUTEROL 1.25MG 0.5ML CONCENTRATE NEB INH SCH ×4 (07:22→20:18)
[2023-06-22] MEDS ORDERED: MIDODRINE 5 MG TAB PO ONE (08:00)
[2023-06-22] MEDS: PYRIDOXINE 50 MG TAB PO SCH (08:14)
[2023-06-22] MEDS: LACTOBACILLUS ACIDOPHILUS CAP (BACID) PO SCH ×3 (08:14→17:24)
[2023-06-22] MEDS: DOXYCYCLINE HYCLATE 100 MG in D5W MINI-BAG PLUS 100 ML IV SCH (08:14)
[2023-06-22] MEDS: CYANOCOBALAMIN 500 MCG TAB PO SCH (08:14)
[2023-06-22] MEDS: VITAMIN D 1,000 INTERNATIONAL UNITS TABLET PO SCH (08:14)
[2023-06-22] MEDS: dilTIAZem **CD** 180MG CAP PO SCH ×2 (10:00→21:14)
[2023-06-22] MEDS: METOPROLOL TART 25 MG TABLET PO SCH ×2 (10:00→21:15)
[2023-06-22] MEDS: FUROSEMIDE 20 MG TAB PO SCH (10:25)
[2023-06-22] MEDS ORDERED: CEFD300CAP PO (10:31)
[2023-06-22] MEDS ORDERED: BACI1CAP PO (10:31)
[2023-06-22] MEDS ORDERED: DOXY-444 PO (10:31)
[2023-06-22] MEDS: cefTRIAXone SOD 2 GM in D5W MINI-BAG PLUS 50 ML IV SCH (17:25)
[2023-06-22] MEDS: DOXYCYCLINE HYCLATE 100MG TABLET PO SCH (21:14)
[2023-06-22] MEDS: RIVAROXABAN 20MG TAB (XARELTO) PO SCH (21:15)
[2023-06-22] MEDS: OMEPRAZOLE 20MG CAP PO SCH (21:15)
[2023-06-23 04:50] VITALS: BP 102/57; TEMP 98.2; O2SAT 91
[2023-06-23] MEDS: LEVOTHYROXINE 100MCG TABLET (0.1MG) PO SCH (06:11)
[2023-06-23] MEDS: SINEMET 25-100 MG TAB PO SCH ×2 (06:12→09:36)
[2023-06-23] MEDS: LEVALBUTEROL 1.25MG 0.5ML CONCENTRATE NEB INH SCH ×2 (07:18→11:18)
[2023-06-23 07:45] VITALS: BP 130/71; TEMP 97.6; O2SAT 92
[2023-06-23 08:29] LABS: BASO % 0.4 % (0.0-1.0); EOS # 0.1 10^3/uL (0.0-0.5); EOS % 1.9 % (0.0-3.0); HEMATOCRIT 34.8 % (36.0-47.0); HEMOGLOBIN 11.1 g/dl (12.0-15.5); LYMPH # 1.7 10^3/uL (1.5-5.0); LYMPH % 23.4 % (24.0-44.0); MEAN CORPUSCULAR HEMOGLOBIN 28.9 pg (27.0-33.0); MEAN CORPUSCULAR HGB CONC 31.9 g/dl (32.0-36.5); MEAN CORPUSCULAR VOLUME 90.6 fl (80.0-96.0); MONO # 0.6 10^3/uL (0.0-0.8); MONO % 7.7 % (2.0-8.0); NEUTROPHILS # 4.9 10^3/uL (1.5-8.5); NEUTROPHILS % 66.5 % (36.0-66.0); PLATELET COUNT, AUTOMATED 296 10^3/uL (150-450); RED BLOOD COUNT 3.84 10^6/uL (4.00-5.40); WHITE BLOOD COUNT 7.4 10^3/uL (4.0-10.0)
[2023-06-23 08:48] LABS: ERYTHROCYTE SEDIMENTATION RATE 103 mm/hr (0-30)
[2023-06-23] MEDS: CYANOCOBALAMIN 500 MCG TAB PO SCH (09:36)
[2023-06-23] MEDS: LACTOBACILLUS ACIDOPHILUS CAP (BACID) PO SCH (09:36)
[2023-06-23] MEDS: dilTIAZem **CD** 180MG CAP PO SCH (09:37)
[2023-06-23] MEDS: DOXYCYCLINE HYCLATE 100MG TABLET PO SCH (09:37)
[2023-06-23] MEDS: VITAMIN D 1,000 INTERNATIONAL UNITS TABLET PO SCH (09:37)
[2023-06-23] MEDS: PYRIDOXINE 50 MG TAB PO SCH (09:37)
[2023-06-23 09:38] VITALS: BP 130/71
[2023-06-23] MEDS: FUROSEMIDE 20 MG TAB PO SCH (09:38)
[2023-06-23] MEDS: METOPROLOL TART 25 MG TABLET PO SCH (09:38)
[2023-06-23 09:40] LABS: BLOOD UREA NITROGEN 9 MG/DL (9-23); CALCIUM LEVEL 8.9 MG/DL (8.3-10.6); CARBON DIOXIDE LEVEL 24 MMOL/L (20-31); CHLORIDE LEVEL 108 MMOL/L (98-107); GLOMERULAR FILTRATION RATE > 60.0 (>32); GLUCOSE, FASTING 110 MG/DL (74-106); MAGNESIUM LEVEL 1.8 MG/DL (1.8-2.4); POTASSIUM SERUM 4.2 MMOL/L (3.5-5.1); PROCALCITONIN <0.04 ng/ml; SODIUM LEVEL 143 MMOL/L (136-145)
[2023-06-23] MEDS: cefTRIAXone SOD 2 GM in D5W MINI-BAG PLUS 50 ML IV SCH (10:38)
[2023-06-27 16:09] LABS: BODY FLUID CULTURE Not indicated. (.); LEGIONELLA ANTIGEN URINE Negative (Negative); ORGANISM ID Not indicated. (.); SPECIMEN SOURCE Urine (.); URINE STREP PNEUMONIAE ANTIGEN Negative (Negative)
== END 2023-06-23 11:59 | disposition home health service (06) | DRG 193 ==
LOC: M ED 13:15 → EDBD 13:15 → M ED INP 16:27 → ENRESERV 16:38 → M PCU 17:42
PROVIDERS: ADMIT General Practice; ATTEND General Practice
DX: J18.9 Pneumonia, unspecified organism (principal); I50.33 Acute on chronic diastolic (congestive) heart failure; G20.A1 Parkinson's disease without dyskinesia, without mention of fluctuations; I48.91 Unspecified atrial fibrillation; I36.0 Nonrheumatic tricuspid (valve) stenosis; E78.5 Hyperlipidemia, unspecified; I11.0 Hypertensive heart disease with heart failure; K21.9 Gastro-esophageal reflux disease without esophagitis; E03.9 Hypothyroidism, unspecified; R26.89 Other abnormalities of gait and mobility; M19.90 Unspecified osteoarthritis, unspecified site; Z95.0 Presence of cardiac pacemaker; Z90.49 Acquired absence of other specified parts of digestive tract; Z87.891 Personal history of nicotine dependence; E55.9 Vitamin D deficiency, unspecified; Z79.01 Long term (current) use of anticoagulants; Z79.890 Hormone replacement therapy; Z79.899 Other long term (current) drug therapy; Z88.6 Allergy status to analgesic agent; Z88.8 Allergy status to other drugs, medicaments and biological substances; Z91.048 Other nonmedicinal substance allergy status; Z99.3 Dependence on wheelchair

== ENCOUNTER → 2023-07-06 | Outpatient (REF) | payer MEDICARE, MEDICAID, OTHER ==
[~2023-07-06] MED LIST changes: +BACI1CAP PO; +CEFD300CAP PO; +DILT180C78 PO; +DOXY-444 PO; +FURO20TA2 PO; +LEVO100C PO; +METO1TAB87 PO; +POTA595T16 PO; +RYTA1CAP PO
[2023-07-06 14:18] LABS: HEMATOCRIT 39.2 % (36.0-47.0); HEMOGLOBIN 12.1 g/dl (12.0-15.5); MEAN CORPUSCULAR HEMOGLOBIN 28.2 pg (27.0-33.0); MEAN CORPUSCULAR HGB CONC 30.9 g/dl (32.0-36.5); MEAN CORPUSCULAR VOLUME 91.4 fl (80.0-96.0); PLATELET COUNT, AUTOMATED 410 10^3/uL (150-450); RED BLOOD COUNT 4.29 10^6/uL (4.00-5.40); WHITE BLOOD COUNT 6.1 10^3/uL (4.0-10.0)
[2023-07-06 14:55] LABS: ALBUMIN 3.6 G/DL (3.2-5.2); ALKALINE PHOSPHATASE 61 U/L (46-116); ALT/SGPT 14 U/L (7.0-40); AST/SGOT 18 U/L (<34); BILIRUBIN,TOTAL 0.3 MG/DL (0.3-1.2); BLOOD UREA NITROGEN 11 MG/DL (9-23); CALCIUM LEVEL 9.2 MG/DL (8.3-10.6); CARBON DIOXIDE LEVEL 27 MMOL/L (20-31); CHLORIDE LEVEL 104 MMOL/L (98-107); CREATININE FOR GFR 0.64 MG/DL (0.55-1.30); GLOMERULAR FILTRATION RATE > 60.0 (>32); GLUCOSE, FASTING 88 MG/DL (74-106); POTASSIUM SERUM 4.7 MMOL/L (3.5-5.1); SODIUM LEVEL 140 MMOL/L (136-145); TOTAL PROTEIN 7.3 G/DL (5.7-8.2)
== END ==
LOC: M SFHCADAM 09:45
PROVIDERS: ATTEND Family Medicine
DX: J18.9 Pneumonia, unspecified organism (principal); I50.30 Unspecified diastolic (congestive) heart failure

== ENCOUNTER → 2023-07-26 | Outpatient (CLI) | payer MEDICARE, MEDICAID, OTHER | LOC: M ADAMS 11:23 | PROVIDERS: ATTEND Family Medicine | DX: J18.9 Pneumonia, unspecified organism (principal) ==

== ENCOUNTER 2023-08-10 18:48 | Emergency (ER) | payer MEDICARE, OTHER, MEDICAID ==
[~2023-08-10] VITALS: Ht 157.5 cm; Wt 105.3 kg
[2023-08-10] MEDS ORDERED: ACETAMINOPHEN TAB 650MG DOSE (2X325MG) PO ONE (19:45)
[2023-08-10 21:00] VITALS: BP 113/56
[2023-08-10 21:18] VITALS: TEMP 97.9; O2SAT 99
== END 2023-08-10 21:57 | disposition home or self-care (01) ==
LOC: EDBD 18:48 → M ED 18:48
DX: S90.31XA Contusion of right foot, initial encounter (principal); I10 Essential (primary) hypertension; G20.C Parkinsonism, unspecified; E78.5 Hyperlipidemia, unspecified; Z86.79 Personal history of other diseases of the circulatory system; Z79.52 Long term (current) use of systemic steroids; Z79.83 Long term (current) use of bisphosphonates; Z79.899 Other long term (current) drug therapy

== ENCOUNTER → 2023-08-10 | Outpatient (CLI) | payer MEDICARE, MEDICAID, OTHER | LOC: M ADAMS 11:07 | PROVIDERS: ATTEND Physician Assistant | DX: J18.9 Pneumonia, unspecified organism (principal) ==

== ENCOUNTER → 2023-08-22 | Outpatient (REF) | payer MEDICARE, OTHER, MEDICAID ==
[2023-08-22 15:39] LABS: BLOOD UREA NITROGEN 12 MG/DL (9-23); CALCIUM LEVEL 8.9 MG/DL (8.3-10.6); CARBON DIOXIDE LEVEL 19 MMOL/L (20-31); CHLORIDE LEVEL 106 MMOL/L (98-107); CREATININE FOR GFR 0.74 MG/DL (0.55-1.30); GLOMERULAR FILTRATION RATE > 60.0 (>32); GLUCOSE, FASTING 105 MG/DL (74-106); POTASSIUM SERUM 5.6 MMOL/L (3.5-5.1); SODIUM LEVEL 138 MMOL/L (136-145)
== END ==
LOC: M SHH 14:39
PROVIDERS: ATTEND Physician Assistant
DX: I50.30 Unspecified diastolic (congestive) heart failure (principal)

== ENCOUNTER → 2023-08-30 | Outpatient (REF) | payer MEDICARE, MEDICAID, OTHER | LOC: M SFHCADAM 10:14 | PROVIDERS: ATTEND Family Medicine | DX: E87.5 Hyperkalemia (principal); E03.9 Hypothyroidism, unspecified; R73.9 Hyperglycemia, unspecified; I50.30 Unspecified diastolic (congestive) heart failure ==

== ENCOUNTER → 2023-09-14 | Outpatient (CLI) | payer MEDICARE, OTHER, MEDICAID ==
[2023-09-14 10:16] LABS: HEMATOCRIT 41.4 % (36.0-47.0); MEAN CORPUSCULAR HEMOGLOBIN 28.6 pg (27.0-33.0); MEAN CORPUSCULAR HGB CONC 31.4 g/dl (32.0-36.5); MEAN CORPUSCULAR VOLUME 91.2 fl (80.0-96.0); PLATELET COUNT, AUTOMATED 232 10^3/uL (150-450); RED BLOOD COUNT 4.54 10^6/uL (4.00-5.40); WHITE BLOOD COUNT 6.8 10^3/uL (4.0-10.0)
[2023-09-14 10:53] LABS: BLOOD UREA NITROGEN 16 MG/DL (9-23); CALCIUM LEVEL 8.3 MG/DL (8.3-10.6); CARBON DIOXIDE LEVEL 26 MMOL/L (20-31); CHLORIDE LEVEL 106 MMOL/L (98-107); CREATININE FOR GFR 0.83 MG/DL (0.55-1.30); GLOMERULAR FILTRATION RATE > 60.0 (>32); GLUCOSE, FASTING 96 MG/DL (74-106); POTASSIUM SERUM 4.6 MMOL/L (3.5-5.1); SODIUM LEVEL 141 MMOL/L (136-145)
[2023-09-14 10:55] LABS: THYROID STIMULATING HORMONE 4.056 uIU/ML (0.55-4.78)
[2023-09-14 10:56] LABS: FREE T4 1.16 NG/DL (0.89-1.76)
[2023-09-14 11:00] LABS: HEMOGLOBIN A1c 5.2 % (4.0-6.0)
== END ==
LOC: M LAB 09:04
PROVIDERS: ATTEND Family Medicine
DX: E87.5 Hyperkalemia (principal); E03.9 Hypothyroidism, unspecified; R73.9 Hyperglycemia, unspecified; I50.30 Unspecified diastolic (congestive) heart failure

== ENCOUNTER → 2023-09-22 | Outpatient (CLI) | payer MEDICARE, OTHER, MEDICAID | LOC: M ADAMS 09:51 | PROVIDERS: ATTEND Family Medicine | DX: M79.89 Other specified soft tissue disorders (principal); M19.071 Primary osteoarthritis, right ankle and foot ==

== ENCOUNTER 2023-10-11 08:18 | Day surgery (SDC) | payer MEDICARE, OTHER, MEDICAID ==
[~2023-10-11] VITALS: Ht 157.5 cm; Wt 104.3 kg
[~2023-10-11 08:18] MED LIST changes: +ACET-1349 PO; +MELA10CA PO; +PHENYLEPHRINE 10% OPHTH SOL 5ML OS PRN
[2023-10-11] MEDS: PHENYLEPHRINE 2.5% OPHTH SOL 2ML OS SCH (10:04)
[2023-10-11] MEDS: TROPICAMIDE 1% OPHTH SOLN 15ML OS SCH (10:04)
[2023-10-11] MEDS: OFLOXACIN 0.3 % (OCUFLOX) OPTH SOL 5ML OS ONE (10:05)
[2023-10-11] MEDS: CYCLOPENTOLATE 1% OPHTH SOLN 2ML BTL OS SCH (10:05)
[2023-10-11] MEDS: LIDOCAINE 3.5 % 1ML OPHTH TOPICAL GEL OU ONE (10:06)
[2023-10-11] MEDS: BSS IRRIG/VANCO(10MG)/TOBRA(5MG)/EPINEPH(1:1000-0.5CC)500ML BAG-ORONLY As Ordered ONE (10:59)
[2023-10-11] MEDS: LIDOCAINE 1% SDV 5ML VIAL As Ordered ONE (10:59)
[2023-10-11] MEDS: CEFUROXIME 1MG/0.1ML INTRACAMERAL INJ As Ordered ONE (11:00)
[2023-10-11 11:11] VITALS: BP 131/61; TEMP 97.2; O2SAT 96
[2023-10-11] MEDS ORDERED: fentaNYL 100 MCG/2 ML INJECTION As Ordered ONE (11:17)
[2023-10-11] MEDS ORDERED: MIDAZOLAM INJ 2MG/2ML VIAL As Ordered ONE (11:17)
== END 2023-10-11 11:42 | disposition home or self-care (01) ==
LOC: M SDC 08:18
PROVIDERS: ATTEND Ophthalmology
DX: H25.12 Age-related nuclear cataract, left eye (principal); I48.91 Unspecified atrial fibrillation; I10 Essential (primary) hypertension; E03.9 Hypothyroidism, unspecified; Z79.01 Long term (current) use of anticoagulants; Z79.899 Other long term (current) drug therapy; Z95.0 Presence of cardiac pacemaker; K21.9 Gastro-esophageal reflux disease without esophagitis; Z90.710 Acquired absence of both cervix and uterus
CPT/HCPCS: 66984; J0697; J2250; J3010; V2632

== ENCOUNTER 2023-11-01 07:33 | Day surgery (SDC) | payer MEDICARE, OTHER, MEDICAID ==
[~2023-11-01] VITALS: Ht 160 cm; Wt 105.7 kg
[~2023-11-01 07:33] MED LIST changes: +PHENYLEPHRINE 10% OPHTH SOL 5ML OD PRN; -PHENYLEPHRINE 10% OPHTH SOL 5ML OS PRN; +fentaNYL 100 MCG/2 ML INJECTION As Ordered ONE
[2023-11-01] MEDS: LIDOCAINE 3.5 % 1ML OPHTH TOPICAL GEL OU ONE (08:01)
[2023-11-01] MEDS: OFLOXACIN 0.3 % (OCUFLOX) OPTH SOL 5ML OD ONE (08:01)
[2023-11-01] MEDS: TROPICAMIDE 1% OPHTH SOLN 15ML OD SCH (08:02)
[2023-11-01] MEDS: PHENYLEPHRINE 2.5% OPHTH SOL 2ML OD SCH (08:02)
[2023-11-01] MEDS: ATROPINE SULFATE 1% OPHTH SOLN 2ML BTL OD SCH (08:02)
[2023-11-01] MEDS: LIDOCAINE 1% SDV 5ML VIAL As Ordered ONE (09:28)
[2023-11-01] MEDS: BSS IRRIG/VANCO(10MG)/TOBRA(5MG)/EPINEPH(1:1000-0.5CC)500ML BAG-ORONLY As Ordered ONE (09:29)
[2023-11-01] MEDS: CEFUROXIME 1MG/0.1ML INTRACAMERAL INJ As Ordered ONE (09:29)
[2023-11-01 09:40] VITALS: BP 112/56; TEMP 97.7; O2SAT 97
== END 2023-11-01 10:08 | disposition home or self-care (01) ==
LOC: M SDC 07:33
PROVIDERS: ATTEND Ophthalmology
DX: H25.11 Age-related nuclear cataract, right eye (principal); R07.9 Chest pain, unspecified; Z95.0 Presence of cardiac pacemaker; Z87.891 Personal history of nicotine dependence; Z91.048 Other nonmedicinal substance allergy status; Z88.6 Allergy status to analgesic agent; Z88.8 Allergy status to other drugs, medicaments and biological substances; Z79.899 Other long term (current) drug therapy
CPT/HCPCS: 66984; J0697; J3010; V2632

== ENCOUNTER → 2023-12-01 | Outpatient (REF) | payer MEDICARE, MEDICAID, OTHER ==
[~2023-12-01] MED LIST changes: -PHENYLEPHRINE 10% OPHTH SOL 5ML OD PRN; -fentaNYL 100 MCG/2 ML INJECTION As Ordered ONE
[2023-12-01 18:31] LABS: HEMATOCRIT 41.6 % (36.0-47.0); MEAN CORPUSCULAR HEMOGLOBIN 29.1 pg (27.0-33.0); MEAN CORPUSCULAR HGB CONC 31.3 g/dl (32.0-36.5); MEAN CORPUSCULAR VOLUME 93.3 fl (80.0-96.0); PLATELET COUNT, AUTOMATED 278 10^3/uL (150-450); RED BLOOD COUNT 4.46 10^6/uL (4.00-5.40); WHITE BLOOD COUNT 5.9 10^3/uL (4.0-10.0)
[2023-12-01 19:07] LABS: ALBUMIN 3.6 G/DL (3.2-5.2); ALKALINE PHOSPHATASE 81 U/L (46-116); ALT/SGPT 12 U/L (7.0-40); AST/SGOT 22 U/L (<34); BILIRUBIN,TOTAL 0.2 MG/DL (0.3-1.2); BLOOD UREA NITROGEN 18 MG/DL (9-23); CALCIUM LEVEL 9.1 MG/DL (8.3-10.6); CARBON DIOXIDE LEVEL 26 MMOL/L (20-31); CHLORIDE LEVEL 104 MMOL/L (98-107); CREATININE FOR GFR 0.81 MG/DL (0.55-1.30); GLOMERULAR FILTRATION RATE > 60.0 (>32); GLUCOSE, FASTING 94 MG/DL (74-106); POTASSIUM SERUM 4.4 MMOL/L (3.5-5.1); SODIUM LEVEL 139 MMOL/L (136-145); TOTAL PROTEIN 7.4 G/DL (5.7-8.2)
[2023-12-01 19:09] LABS: FREE T4 1.15 NG/DL (0.89-1.76); THYROID STIMULATING HORMONE 5.273 uIU/ML (0.55-4.78)
== END ==
LOC: M SFHCADAM 09:25
PROVIDERS: ATTEND Family Medicine
DX: M17.12 Unilateral primary osteoarthritis, left knee (principal); E87.5 Hyperkalemia; E03.9 Hypothyroidism, unspecified; R73.9 Hyperglycemia, unspecified; I50.30 Unspecified diastolic (congestive) heart failure

== ENCOUNTER → 2024-04-08 | Outpatient (REF) | payer MEDICARE, MEDICAID, OTHER ==
[~2024-04-08] MED LIST changes: -CRAN400C PO; +CRANBERRY400 MG PO; +DOXY-440 PO; -DOXY-444 PO
[2024-04-08 18:19] LABS: APPEARANCE, URINE CLEAR (CLEAR); BACTERIA, URINE AUTO NEGATIVE (NEGATIVE); BILIRUBIN, URINE AUTO NEGATIVE (NEGATIVE); BLOOD, URINE BLOOD 1+ (NEGATIVE); COLOR, URINE STRAW (YELLOW); GLUCOSE, URINE (UA) AUTO NEGATIVE (NEGATIVE); KETONE, URINE AUTO NEGATIVE (NEGATIVE); LEUKOCYTE ESTERASE, URINE AUTO 2+ (NEGATIVE); NITRITE, URINE AUTO NEGATIVE (NEGATIVE); PROTEIN, URINE AUTO NEGATIVE (NEGATIVE); RBC, URINE AUTO 4 /HPF (0-3); SPECIFIC GRAVITY URINE AUTO 1.005 (1.002-1.035); SQUAMOUS EPITHELIAL CELL UR AU 1 /HPF (0-6); UROBILINOGEN, URINE AUTO 0.2 mg/dL (0.0-2.0); WBC, URINE AUTO 28 /HPF (0-3)
== END ==
LOC: M SFHCADAM 12:49
PROVIDERS: ATTEND Family Medicine
DX: R30.0 Dysuria (principal)

== ENCOUNTER → 2024-04-26 | Outpatient (REF) | payer MEDICARE, MEDICAID, OTHER ==
[2024-04-26 13:23] LABS: APPEARANCE, URINE TURBID (CLEAR); BACTERIA, URINE AUTO 1+ (NEGATIVE); BILIRUBIN, URINE AUTO NEGATIVE (NEGATIVE); BLOOD, URINE BLOOD NEGATIVE (NEGATIVE); COLOR, URINE YELLOW (YELLOW); GLUCOSE, URINE (UA) AUTO NEGATIVE (NEGATIVE); KETONE, URINE AUTO TRACE mg/dL (NEGATIVE); LEUKOCYTE ESTERASE, URINE AUTO 3+ (NEGATIVE); NITRITE, URINE AUTO NEGATIVE (NEGATIVE); PROTEIN, URINE AUTO 1+ mg/dL (NEGATIVE); RBC, URINE AUTO 20 /HPF (0-3); SPECIFIC GRAVITY URINE AUTO 1.019 (1.002-1.035); SQUAMOUS EPITHELIAL CELL UR AU 6 /HPF (0-6); UROBILINOGEN, URINE AUTO 0.2 mg/dL (0.0-2.0); WBC, URINE AUTO TNTC /HPF (0-3)
== END ==
LOC: M SFHCADAM 10:08
PROVIDERS: ATTEND Physician Assistant
DX: R30.0 Dysuria (principal)

== ENCOUNTER → 2024-05-23 | Outpatient (REF) | payer MEDICARE, MEDICAID, OTHER ==
[~2024-05-23] MED LIST changes: +GABA-1172 PO; -GABA-282 PO
== END ==
LOC: M SFHCADAM 13:26
PROVIDERS: ATTEND Family Medicine
DX: R30.0 Dysuria (principal)

== ENCOUNTER → 2024-06-20 | Outpatient (REF) | payer MEDICARE, MEDICAID, OTHER ==
[2024-06-20 13:19] LABS: HEMATOCRIT 39.2 % (36.0-47.0); HEMOGLOBIN 12.5 g/dl (12.0-15.5); MEAN CORPUSCULAR HEMOGLOBIN 29.3 pg (27.0-33.0); MEAN CORPUSCULAR HGB CONC 31.9 g/dl (32.0-36.5); MEAN CORPUSCULAR VOLUME 91.8 fl (80.0-96.0); PLATELET COUNT, AUTOMATED 350 10^3/uL (150-450); RED BLOOD COUNT 4.27 10^6/uL (4.00-5.40); WHITE BLOOD COUNT 8.4 10^3/uL (4.0-10.0)
[2024-06-20 13:26] LABS: APPEARANCE, URINE TURBID (CLEAR); BACTERIA, URINE AUTO 2+ (NEGATIVE); BILIRUBIN, URINE AUTO NEGATIVE (NEGATIVE); BLOOD, URINE BLOOD NEGATIVE (NEGATIVE); COLOR, URINE YELLOW (YELLOW); GLUCOSE, URINE (UA) AUTO NEGATIVE (NEGATIVE); KETONE, URINE AUTO TRACE mg/dL (NEGATIVE); LEUKOCYTE ESTERASE, URINE AUTO 3+ (NEGATIVE); NITRITE, URINE AUTO NEGATIVE (NEGATIVE); PROTEIN, URINE AUTO 1+ mg/dL (NEGATIVE); RBC, URINE AUTO 8 /HPF (0-3); SPECIFIC GRAVITY URINE AUTO 1.017 (1.002-1.035); SQUAMOUS EPITHELIAL CELL UR AU 1 /HPF (0-6); UROBILINOGEN, URINE AUTO 0.2 mg/dL (0.0-2.0); WBC, URINE AUTO TNTC /HPF (0-3)
[2024-06-20 13:44] LABS: ALBUMIN 3.5 G/DL (3.2-5.2); ALKALINE PHOSPHATASE 68 U/L (35-104); ALT/SGPT < 9 U/L (7.0-40); AST/SGOT 11 U/L (<34); BILIRUBIN,TOTAL 0.2 MG/DL (0.3-1.2); BLOOD UREA NITROGEN 14 MG/DL (9-23); CALCIUM LEVEL 9.6 MG/DL (8.3-10.6); CARBON DIOXIDE LEVEL 26 MMOL/L (20-31); CHLORIDE LEVEL 107 MMOL/L (98-107); CHOLESTEROL LEVEL 241 MG/DL (<200); CHOLESTEROL RISK RATIO 5.71 (<5); CREATININE FOR GFR 0.77 MG/DL (0.55-1.30); GLOMERULAR FILTRATION RATE > 60.0 (>32); GLUCOSE, FASTING 98 MG/DL (74-106); HDL CHOLESTEROL 42.2 MG/DL (>40); NON-HDL-C 198.8 MG/DL; POTASSIUM SERUM 4.3 MMOL/L (3.5-5.1); SODIUM LEVEL 141 MMOL/L (136-145); TOTAL PROTEIN 7.5 G/DL (5.7-8.2); TRIGLYCERIDES LEVEL 274 MG/DL (<150)
[2024-06-20 13:47] LABS: FREE T4 1.23 NG/DL (0.89-1.76); THYROID STIMULATING HORMONE 3.226 uIU/ML (0.55-4.78)
[2024-06-20 15:02] LABS: HEMOGLOBIN A1c 5.3 % (4.0-6.0)
== END ==
LOC: M SFHCADAM 10:32
PROVIDERS: ATTEND Family Medicine
DX: E78.2 Mixed hyperlipidemia (principal); R73.9 Hyperglycemia, unspecified; I50.30 Unspecified diastolic (congestive) heart failure; R30.0 Dysuria; I11.0 Hypertensive heart disease with heart failure; E03.9 Hypothyroidism, unspecified

== ENCOUNTER → 2024-07-25 | Outpatient (CLI) | payer MEDICARE, MEDICAID, OTHER | LOC: M ADAMS 14:29 | PROVIDERS: ATTEND Physician Assistant | DX: M19.042 Primary osteoarthritis, left hand (principal) ==

== ENCOUNTER → 2024-10-18 | Outpatient (REF) | payer MEDICARE, MEDICAID, OTHER ==
[2024-10-18 18:00] LABS: BASO % 0.7 % (0.0-1.0); EOS # 0.2 10^3/uL (0.0-0.5); HEMATOCRIT 37.9 % (36.0-47.0); HEMOGLOBIN 11.6 g/dl (12.0-15.5); LYMPH # 2.4 10^3/uL (1.5-5.0); LYMPH % 42.7 % (24.0-44.0); MEAN CORPUSCULAR HEMOGLOBIN 28.2 pg (27.0-33.0); MEAN CORPUSCULAR HGB CONC 30.6 g/dl (32.0-36.5); MEAN CORPUSCULAR VOLUME 92.2 fl (80.0-96.0); MONO # 0.5 10^3/uL (0.0-0.8); MONO % 7.9 % (2.0-8.0); NEUTROPHILS # 2.6 10^3/uL (1.5-8.5); NEUTROPHILS % 45.5 % (36.0-66.0); PLATELET COUNT, AUTOMATED 326 10^3/uL (150-450); RED BLOOD COUNT 4.11 10^6/uL (4.00-5.40); WHITE BLOOD COUNT 5.7 10^3/uL (4.0-10.0)
[2024-10-18 18:08] LABS: BLOOD UREA NITROGEN 16 MG/DL (9-23); CALCIUM LEVEL 8.8 MG/DL (8.3-10.6); CARBON DIOXIDE LEVEL 28 MMOL/L (20-31); CHLORIDE LEVEL 104 MMOL/L (98-107); CREATININE FOR GFR 0.74 MG/DL (0.55-1.30); GLOMERULAR FILTRATION RATE > 60.0 (>32); GLUCOSE, FASTING 99 MG/DL (74-106); POTASSIUM SERUM 4.1 MMOL/L (3.5-5.1); SODIUM LEVEL 141 MMOL/L (136-145)
[2024-10-18 18:09] LABS: FREE T4 1.33 NG/DL (0.89-1.76); THYROID STIMULATING HORMONE 5.671 uIU/ML (0.55-4.78)
[2024-10-18 18:38] LABS: HEMOGLOBIN A1c 5.3 % (4.0-6.0)
== END ==
LOC: M SFHCADAM 14:19
PROVIDERS: ATTEND Physician Assistant
DX: I11.0 Hypertensive heart disease with heart failure (principal); E03.9 Hypothyroidism, unspecified; E78.2 Mixed hyperlipidemia; R73.9 Hyperglycemia, unspecified; I50.30 Unspecified diastolic (congestive) heart failure; R30.0 Dysuria

== ENCOUNTER → 2025-01-09 | Outpatient (REF) | payer MEDICARE, MEDICAID, OTHER ==
[~2025-01-09] MED LIST changes: -LEVO100C PO; +LEVO100C2 PO
[2025-01-09 17:58] LABS: APPEARANCE, URINE TURBID (CLEAR); BACTERIA, URINE AUTO 1+ (NEGATIVE); BILIRUBIN, URINE AUTO NEGATIVE (NEGATIVE); BLOOD, URINE BLOOD NEGATIVE (NEGATIVE); COLOR, URINE YELLOW (YELLOW); GLUCOSE, URINE (UA) AUTO NEGATIVE (NEGATIVE); KETONE, URINE AUTO TRACE mg/dL (NEGATIVE); LEUKOCYTE ESTERASE, URINE AUTO 3+ (NEGATIVE); MUCUS, URINE SMALL (NEGATIVE); NITRITE, URINE AUTO NEGATIVE (NEGATIVE); PROTEIN, URINE AUTO 2+ mg/dL (NEGATIVE); RBC, URINE AUTO 2 /HPF (0-3); SPECIFIC GRAVITY URINE AUTO 1.019 (1.002-1.035); SQUAMOUS EPITHELIAL CELL UR AU 2 /HPF (0-6); UROBILINOGEN, URINE AUTO 0.2 mg/dL (0.0-2.0); WBC, URINE AUTO TNTC /HPF (0-3)
== END ==
LOC: M SFHCADAM 16:49
PROVIDERS: ATTEND Family Medicine
DX: R82.90 Unspecified abnormal findings in urine (principal)

== ENCOUNTER → 2025-03-28 | Outpatient (REF) | payer MEDICARE, OTHER, MEDICAID ==
[~2025-03-28] MED LIST changes: +DIGO0.123 PO; +HYDR12.510 PO; -HYDR12CA PO; +LASI20TA3 PO; +MIDO5TA PO
[2025-03-28 16:04] LABS: ALT/SGPT 15.0 U/L (7.0-40); AST/SGOT 21.0 U/L (<34); CALCIUM LEVEL 8.9 MG/DL (8.3-10.6); CARBON DIOXIDE LEVEL 30.0 MMOL/L (20-31); CHLORIDE LEVEL 101.0 MMOL/L (98-107); CREATININE FOR GFR 0.66 MG/DL (0.55-1.30); GLOMERULAR FILTRATION RATE 87.0 (>32); MAGNESIUM LEVEL 1.8 MG/DL (1.8-2.4); POTASSIUM SERUM 3.5 MMOL/L (3.5-5.1); SODIUM LEVEL 145.0 MMOL/L (136-145)
== END ==
LOC: M SHH 14:44
PROVIDERS: ATTEND Nurse Practitioner Family
DX: I50.32 Chronic diastolic (congestive) heart failure (principal)

== ENCOUNTER → 2025-05-22 | Outpatient (CLI) | payer MEDICARE, OTHER, MEDICAID ==
[~2025-05-22] VITALS: Ht 157.5 cm; Wt 96.1 kg
[2025-05-22 14:20] VITALS: BP 144/86; O2SAT 97
== END ==
LOC: M PAL 13:10
PROVIDERS: ATTEND Physician Assistant
DX: Z51.5 Encounter for palliative care (principal); Z66 Do not resuscitate; G20.C Parkinsonism, unspecified; I50.32 Chronic diastolic (congestive) heart failure; E78.5 Hyperlipidemia, unspecified; E03.9 Hypothyroidism, unspecified; E55.9 Vitamin D deficiency, unspecified; G62.9 Polyneuropathy, unspecified; Z88.6 Allergy status to analgesic agent; Z88.2 Allergy status to sulfonamides; Z88.1 Allergy status to other antibiotic agents; Z91.048 Other nonmedicinal substance allergy status

== ENCOUNTER → 2025-06-26 | Outpatient (CLI) | payer MEDICARE, OTHER, MEDICAID ==
[~2025-06-26] VITALS: Ht 160 cm; Wt 85.0 kg
[~2025-06-26] MED LIST changes: +MORP1SOL4 PO
[2025-06-26 09:56] VITALS: BP 132/70; O2SAT 96
== END ==
LOC: M PAL 09:47
PROVIDERS: ATTEND Physician Assistant
DX: Z51.5 Encounter for palliative care (principal); Z66 Do not resuscitate; G20.C Parkinsonism, unspecified; Z86.79 Personal history of other diseases of the circulatory system; R54 Age-related physical debility; Z79.891 Long term (current) use of opiate analgesic; Z88.2 Allergy status to sulfonamides; Z88.6 Allergy status to analgesic agent; Z88.1 Allergy status to other antibiotic agents; Z91.048 Other nonmedicinal substance allergy status; Z79.899 Other long term (current) drug therapy; Z79.83 Long term (current) use of bisphosphonates

== ENCOUNTER → 2025-07-10 | Outpatient (CLI) | payer MEDICARE, OTHER, MEDICAID | LOC: M PAL 09:05 | PROVIDERS: ATTEND Physician Assistant | DX: Z51.5 Encounter for palliative care (principal); Z66 Do not resuscitate; G20.C Parkinsonism, unspecified; Z86.79 Personal history of other diseases of the circulatory system; R54 Age-related physical debility; Z79.891 Long term (current) use of opiate analgesic; Z88.6 Allergy status to analgesic agent; Z88.1 Allergy status to other antibiotic agents; Z91.048 Other nonmedicinal substance allergy status; Z79.899 Other long term (current) drug therapy ==

== ENCOUNTER → 2025-07-31 | Outpatient (REF) | payer MEDICARE, MEDICAID, OTHER ==
[2025-07-31 14:37] LABS: PLATELET COUNT, AUTOMATED 414 10^3/uL (150-450)
[2025-07-31 14:52] LABS: ESTIMATED AVERAGE GLUCOSE 111.0 MG/DL (60-110)
[2025-07-31 15:07] LABS: ALT/SGPT 10.0 U/L (7.0-40); AST/SGOT 33.0 U/L (<34); CALCIUM LEVEL 8.7 MG/DL (8.3-10.6); CARBON DIOXIDE LEVEL 31.0 MMOL/L (20-31); CHLORIDE LEVEL 101.0 MMOL/L (98-107); CREATININE FOR GFR 0.62 MG/DL (0.55-1.30); GLOMERULAR FILTRATION RATE 88.3 (>32); POTASSIUM SERUM 3.6 MMOL/L (3.5-5.1); SODIUM LEVEL 142.0 MMOL/L (136-145)
[2025-07-31 15:08] LABS: FREE T4 1.41 NG/DL (0.89-1.76)
== END ==
LOC: M SFHCADAM 11:02
PROVIDERS: ATTEND Family Medicine
DX: Z79.01 Long term (current) use of anticoagulants (principal); I11.0 Hypertensive heart disease with heart failure; E03.9 Hypothyroidism, unspecified; R73.9 Hyperglycemia, unspecified; I50.30 Unspecified diastolic (congestive) heart failure

== ENCOUNTER → 2025-08-07 | Outpatient (CLI) | payer MEDICARE, OTHER, MEDICAID | LOC: M PAL 09:12 | PROVIDERS: ATTEND Physician Assistant | DX: Z51.5 Encounter for palliative care (principal); Z66 Do not resuscitate; G20.C Parkinsonism, unspecified; Z86.79 Personal history of other diseases of the circulatory system; Z88.2 Allergy status to sulfonamides; Z88.6 Allergy status to analgesic agent; Z91.048 Other nonmedicinal substance allergy status; Z79.899 Other long term (current) drug therapy; Z79.52 Long term (current) use of systemic steroids ==